=== PATIENT | female | born 1935 | race African-American/Black ===

== ENCOUNTER 2017-05-08 09:12 | Outpatient (CLI) | payer MEDICARE | END 2017-05-08 09:13 | disposition home or self-care (01) | LOC: BICULT 09:12 | PROVIDERS: ATTEND Internal Medicine Nephrology | DX: N18.3 Chronic kidney disease, stage 3 (moderate) (principal) | CPT/HCPCS: 76770 ==

== ENCOUNTER 2017-05-29 09:34 | Outpatient (CLI) | payer MEDICARE | END 2017-05-29 09:35 | disposition home or self-care (01) | LOC: BICCT 09:34 | PROVIDERS: ATTEND Internal Medicine Nephrology | DX: N18.4 Chronic kidney disease, stage 4 (severe) (principal); I70.90 Unspecified atherosclerosis | CPT/HCPCS: 74176 ==

== ENCOUNTER 2018-03-11 10:08 | Outpatient (CLI) | payer MEDICARE ==
--- NOTE | 2018-03-11 12:26 | ULT ---
RENAL ULTRASOUND: HISTORY: Chronic kidney disease. COMPARISON: None. TECHNIQUE: Sagittal and transverse imaging of the kidneys is performed. FINDINGS: There is bilateral renal cortical thinning. Bilaterally, no hydronephrosis. The right kidney measur es 9.5 x 5.8 x 4.5 cm. The left kidney measures 6.1 x 4.9 x 10.3 cm. Small hypoechoic focus emanating from the lower pole of the left kidney, measuring 0.8 cm, may repres ent a cyst. Unremarkable urinary bladder. Bladder volume is 203 mL. IMPRESSION: No evidence of hydronephrosis. POS: TY
== END 2018-03-11 10:09 | disposition home or self-care (01) ==
LOC: BICULT 10:08
PROVIDERS: ATTEND Internal Medicine Nephrology
DX: N18.3 Chronic kidney disease, stage 3 (moderate) (principal); N28.89 Other specified disorders of kidney and ureter
CPT/HCPCS: 76770

== ENCOUNTER 2018-06-11 12:26 | Emergency (ER) | payer MEDICARE ==
[2018-06-11] MEDS ORDERED: Lorazepam 2 MG/ML VIAL ONE (13:33)
[2018-06-11] MEDS ORDERED: Dicyclomine 20 MG TAB ONE (13:39)
[2018-06-11 13:49] LABS: #Eosinphils 0.2 thou/uL (0.0-0.7); #Lymphocytes 2.2 thou/uL (1.20-3.40); #Monocytes 0.5 thou/uL (0.11-0.59); #Neutrophils 4.6 thou/uL (1.40-6.50); %Basophils 0.5 % (0.0-1.0); %Eosinophils 2.6 % (0.0-10.0); %Lymphocytes 29.7 % (21.0-51.0); %Monocytes 6.2 % (0.0-10.0); Hemoglobin 11.8 g/dL (12.0-16.0); Mean Corpuscular HGB CONC 31.3 g/dL (32.0-36.0); Mean Corpuscular Hemoglobin 30.1 pg (27.0-31.0); Mean Corpuscular Volume 96.1 fL (78.0-98.0); Mean Platelet Volume 9.7 fL (7.4-10.4); Platelet Count 204 thou/uL (130-400); RBC Distribution Width 14.9 % (11.5-14.5); White Blood Cell (WBC) Count 7.5 thou/uL (4.8-10.8)
[2018-06-11 14:12] LABS: ALT (SGPT) 14 U/L (8-55); AST (SGOT) 24 U/L (5-34); Alkaline Phosphatase 83 U/L (40-150); Anion Gap 17 mmol/L (10-20); BUN (Urea Nitrogen) 19 mg/dL (9.8-20.1); Bilirubin, Total 0.4 mg/dL (0.2-1.2); Calc. Creatinine Clearance 0 mL/min (70-130); Calcium 9.7 mg/dL (7.8-10.44); Carbon Dioxide 24 mmol/L (23-31); Chloride 106 mmol/L (98-107); Estimated GFR-MDRD 46; Globulin 3.8 g/dL (2.4-3.5); Glucose 95 mg/dL (83-110); Lipase 95 U/L (8-78); Protein, Total 7.8 g/dL (6.0-8.3); Sodium 143 mmol/L (136-145)
[2018-06-11] MEDS ORDERED: Prochlorperazine Maleate 5 MG TAB PO SCH (14:30)
[2018-06-11] MEDS ORDERED: Metoclopramide HCl 10 MG TAB ONE (15:02)
== END 2018-06-11 15:19 | disposition home or self-care (01) ==
LOC: ERS 12:26
DX: M62.838 Other muscle spasm (principal); R10.84 Generalized abdominal pain; R06.6 Hiccough; E11.9 Type 2 diabetes mellitus without complications; E78.5 Hyperlipidemia, unspecified; I10 Essential (primary) hypertension; F32.9 Major depressive disorder, single episode, unspecified
CPT/HCPCS: 36415; 80053; 83690; 84484; 85025; 99284; J2060; J8597; Q0164

== ENCOUNTER 2018-07-01 12:51 | Emergency (ER) | payer MEDICARE ==
[2018-07-01 13:47] LABS: #Basophils 0.1 thou/uL (0.0-0.2); #Eosinphils 0.2 thou/uL (0.0-0.7); #Lymphocytes 1.9 thou/uL (1.20-3.40); #Monocytes 0.4 thou/uL (0.11-0.59); #Neutrophils 4.8 thou/uL (1.40-6.50); %Basophils 0.9 % (0.0-1.0); %Eosinophils 3.2 % (0.0-10.0); %Lymphocytes 25.7 % (21.0-51.0); %Monocytes 5.5 % (0.0-10.0); %Neutrophils 64.7 % (42.0-75.0); Hemoglobin 12.2 g/dL (12.0-16.0); Mean Corpuscular Hemoglobin 29.6 pg (27.0-31.0); Mean Corpuscular Volume 95.6 fL (78.0-98.0); Mean Platelet Volume 10.3 fL (7.4-10.4); Platelet Count 186 thou/uL (130-400); RBC Distribution Width 14.7 % (11.5-14.5); Red Blood Cell (RBC) Count 4.13 mill/uL (4.20-5.40); White Blood Cell (WBC) Count 7.4 thou/uL (4.8-10.8)
[2018-07-01 14:02] LABS: ALT (SGPT) 14 U/L (8-55); AST (SGOT) 21 U/L (5-34); Alkaline Phosphatase 89 U/L (40-150); Anion Gap 13 mmol/L (10-20); BUN (Urea Nitrogen) 18 mg/dL (9.8-20.1); Bilirubin, Total 0.3 mg/dL (0.2-1.2); Calc. Creatinine Clearance 0 mL/min (70-130); Calcium 9.6 mg/dL (7.8-10.44); Carbon Dioxide 24 mmol/L (23-31); Chloride 108 mmol/L (98-107); Estimated GFR-MDRD 47; Glucose 98 mg/dL (83-110); Lipase 83 U/L (8-78); Potassium 4.2 mmol/L (3.5-5.1); Sodium 141 mmol/L (136-145)
[2018-07-01 14:19] LABS: Bilirubin Negative (Negative); Blood, Urine Negative (Negative); Glucose, Urine (Dipstick) Negative (Negative); Leukocyte Negative (Negative); Nitrite Negative (Negative); Protein, Urine (Dipstick) Negative (Neg-Trace); Specific Gravity, Urine 1.025 (1.005-1.030); Urobilinogen 0.2 mg/dL (0.2-1.0); pH, Urine 5.5 (5.0-9.0)
[2018-07-01 14:25] LABS: Clarity Clear (Clear)
== END 2018-07-01 14:56 | disposition home or self-care (01) ==
LOC: ERS 12:51
DX: R10.9 Unspecified abdominal pain (principal); G89.29 Other chronic pain; E11.9 Type 2 diabetes mellitus without complications; E78.5 Hyperlipidemia, unspecified; I10 Essential (primary) hypertension; F32.9 Major depressive disorder, single episode, unspecified
CPT/HCPCS: 36415; 51701; 80053; 81003; 83690; 85025; A4353

== ENCOUNTER 2018-07-03 13:45 | Emergency (ER) | payer MEDICARE ==
[2018-07-03] MEDS ORDERED: ISOVUE-370 76%-LOCM 1 ML ONE (15:29)
[2018-07-03 15:46] LABS: #Eosinphils 0.4 thou/uL (0.0-0.7); #Lymphocytes 2.2 thou/uL (1.20-3.40); #Monocytes 0.4 thou/uL (0.11-0.59); #Neutrophils 4.6 thou/uL (1.40-6.50); %Basophils 0.4 % (0.0-1.0); %Lymphocytes 29.2 % (21.0-51.0); %Monocytes 5.2 % (0.0-10.0); %Neutrophils 60.2 % (42.0-75.0); Hemoglobin 11.9 g/dL (12.0-16.0); Mean Corpuscular HGB CONC 32.2 g/dL (32.0-36.0); Mean Corpuscular Hemoglobin 29.6 pg (27.0-31.0); Mean Corpuscular Volume 91.7 fL (78.0-98.0); Mean Platelet Volume 10.3 fL (7.4-10.4); Platelet Count 155 thou/uL (130-400); RBC Distribution Width 14.5 % (11.5-14.5); Red Blood Cell (RBC) Count 4.03 mill/uL (4.20-5.40); White Blood Cell (WBC) Count 7.6 thou/uL (4.8-10.8)
[2018-07-03 15:47] LABS: Bilirubin Negative (Negative); Blood, Urine Negative (Negative); Clarity CLEAR (Clear); Glucose, Urine (Dipstick) Negative (Negative); Leukocyte Negative (Negative); Nitrite Negative (Negative); Protein, Urine (Dipstick) Negative (Neg-Trace); Specific Gravity, Urine 1.011 (1.002-1.036); Urobilinogen 0.2 mg/dL (0.2-1.0)
--- NOTE | 2018-07-03 15:59 | CT ---
FCT of abdomen and pelvis 07/03/2018 COMPARISON: 02/05/2012 HISTORY: 83-year-old female with stomach pain TECHNIQUE: Axial CT imaging at 5 mm intervals from lung bases through pubic symphysis with IV contras t. Coronal reformatted imaging obtained. FINDINGS: Right lower lobe granuloma noted on image 8. Imaged lung bases otherwise unremarkable. Smal l sliding type hiatal hernia. No free intraperitoneal air or fluid. Liver, gallbladder, and spleen demonstrate no acute findings. Splenic granulomata noted. Pancreas, ad renal glands, and kidneys demonstrate no acute findings. Limited assessment of the bowel without oral contrast media demonstrates no evidence for obstruction or focal inflammatory change. The appendix appears unremarkable. Mild sigmoid colonic diverticulosis without evidence for diverticu litis. There is scattered atherosclerotic calcification involving the arterial structures of the pelvis. No abdominal or pelvic lymphadenopathy. There is multilevel severe lower lumbar spine facet hypertrophic change. Multilevel disc space narrow ing, osteophyte formation, and vacuum disc formation seen involving the thoracic spine and lumbar spi ne. No worrisome lytic or blastic bone lesion. IMPRESSION: No acute findings. Numerous chronic findings as described above.
[2018-07-03 16:02] LABS: ALT (SGPT) 17 U/L (8-55); AST (SGOT) 23 U/L (5-34); Albumin 3.8 g/dL (3.4-4.8); Alkaline Phosphatase 86 U/L (40-150); Anion Gap 16 mmol/L (10-20); BUN (Urea Nitrogen) 17 mg/dL (9.8-20.1); Bilirubin, Total 0.3 mg/dL (0.2-1.2); CK (CPK) 98 U/L (29-168); Calc. Creatinine Clearance 0 mL/min (70-130); Calcium 9.4 mg/dL (7.8-10.44); Carbon Dioxide 22 mmol/L (23-31); Chloride 108 mmol/L (98-107); Estimated GFR-MDRD 51; Globulin 4.1 g/dL (2.4-3.5); Glucose 97 mg/dL (83-110); Lipase 177 U/L (8-78); Potassium 4.7 mmol/L (3.5-5.1); Protein, Total 7.9 g/dL (6.0-8.3); Sodium 141 mmol/L (136-145)
[2018-07-03] MEDS ORDERED: chlorproMAZINE HCl 25 MG TAB PO SCH (17:15)
== END 2018-07-03 17:25 | disposition home or self-care (01) ==
LOC: ERS 13:45
DX: R10.9 Unspecified abdominal pain (principal); R06.6 Hiccough; E78.5 Hyperlipidemia, unspecified; E11.9 Type 2 diabetes mellitus without complications; F32.9 Major depressive disorder, single episode, unspecified; I10 Essential (primary) hypertension
CPT/HCPCS: 36415; 74177; 80053; 81003; 82550; 83690; 85025; 93005; 96360; Q0161; Q9966

== ENCOUNTER 2018-08-10 17:16 | Emergency (ER) | payer MEDICARE ==
[2018-08-10 18:34] LABS: #Basophils 0.1 thou/uL (0.0-0.2); #Eosinphils 0.2 thou/uL (0.0-0.7); #Monocytes 0.4 thou/uL (0.11-0.59); #Neutrophils 4.9 thou/uL (1.40-6.50); %Basophils 0.7 % (0.0-1.0); %Eosinophils 2.8 % (0.0-10.0); %Lymphocytes 26.3 % (21.0-51.0); %Monocytes 5.4 % (0.0-10.0); %Neutrophils 64.8 % (42.0-75.0); Hemoglobin 11.5 g/dL (12.0-16.0); Mean Corpuscular HGB CONC 31.2 g/dL (32.0-36.0); Mean Corpuscular Hemoglobin 28.9 pg (27.0-31.0); Mean Corpuscular Volume 92.7 fL (78.0-98.0); Mean Platelet Volume 9.7 fL (7.4-10.4); Platelet Count 190 thou/uL (130-400); RBC Distribution Width 14.8 % (11.5-14.5); Red Blood Cell (RBC) Count 3.97 mill/uL (4.20-5.40); White Blood Cell (WBC) Count 7.6 thou/uL (4.8-10.8)
[2018-08-10 18:54] LABS: ALT (SGPT) 15 U/L (8-55); AST (SGOT) 19 U/L (5-34); Albumin 4.1 g/dL (3.4-4.8); Alkaline Phosphatase 87 U/L (40-150); Anion Gap 14 mmol/L (10-20); BUN (Urea Nitrogen) 18 mg/dL (9.8-20.1); Bilirubin, Total 0.3 mg/dL (0.2-1.2); Calc. Creatinine Clearance 0 mL/min (70-130); Calcium 9.8 mg/dL (7.8-10.44); Carbon Dioxide 24 mmol/L (23-31); Chloride 108 mmol/L (98-107); Estimated GFR-MDRD 44; Globulin 3.7 g/dL (2.4-3.5); Glucose 89 mg/dL (83-110); Lipase 77 U/L (8-78); Potassium 3.8 mmol/L (3.5-5.1); Protein, Total 7.8 g/dL (6.0-8.3); Sodium 142 mmol/L (136-145)
[2018-08-10 20:54] LABS: Bilirubin Negative (Negative); Blood, Urine Negative (Negative); Clarity CLEAR (Clear); Glucose, Urine (Dipstick) Negative (Negative); Leukocyte Negative (Negative); Nitrite Negative (Negative); Protein, Urine (Dipstick) Negative (Neg-Trace); Specific Gravity, Urine 1.018 (1.002-1.036); Urobilinogen 0.2 mg/dL (0.2-1.0)
[2018-08-10] MEDS ORDERED: Pantoprazole 40 MG VIAL ONE (21:29)
[2018-08-10] MEDS ORDERED: Lorazepam 2 MG/ML VIAL ONE (21:29)
[2018-08-10] MEDS ORDERED: chlorproMAZINE HCl 50 MG/2 ML AMP SLOW IVP SCH (22:00)
== END 2018-08-11 00:50 | disposition home or self-care (01) ==
LOC: ERS 17:16
DX: R10.9 Unspecified abdominal pain (principal); R06.6 Hiccough; E11.9 Type 2 diabetes mellitus without complications; E78.5 Hyperlipidemia, unspecified; I10 Essential (primary) hypertension; F32.9 Major depressive disorder, single episode, unspecified
CPT/HCPCS: 36415; 80053; 81003; 83690; 85025; 96361; 96365; 96375; C9113; J2060; J3230

== ENCOUNTER 2018-08-20 16:44 | Emergency (ER) | payer MEDICARE ==
[2018-08-20 17:43] LABS: #Basophils 0.1 thou/uL (0.0-0.2); #Eosinphils 0.2 thou/uL (0.0-0.7); #Monocytes 0.4 thou/uL (0.11-0.59); #Neutrophils 3.7 thou/uL (1.40-6.50); %Basophils 1.1 % (0.0-1.0); %Lymphocytes 31.4 % (21.0-51.0); %Monocytes 6.4 % (0.0-10.0); %Neutrophils 58.2 % (42.0-75.0); Hemoglobin 11.6 g/dL (12.0-16.0); Mean Corpuscular Hemoglobin 30.2 pg (27.0-31.0); Mean Corpuscular Volume 94.4 fL (78.0-98.0); Platelet Count 170 thou/uL (130-400); RBC Distribution Width 15.2 % (11.5-14.5); Red Blood Cell (RBC) Count 3.86 mill/uL (4.20-5.40); White Blood Cell (WBC) Count 6.4 thou/uL (4.8-10.8)
[2018-08-20 18:06] LABS: ALT (SGPT) 13 U/L (8-55); AST (SGOT) 14 U/L (5-34); Albumin 3.9 g/dL (3.4-4.8); Alkaline Phosphatase 81 U/L (40-150); Anion Gap 16 mmol/L (10-20); BUN (Urea Nitrogen) 18 mg/dL (9.8-20.1); Bilirubin, Total 0.3 mg/dL (0.2-1.2); Calc. Creatinine Clearance 0 mL/min (70-130); Calcium 9.5 mg/dL (7.8-10.44); Carbon Dioxide 22 mmol/L (23-31); Chloride 111 mmol/L (98-107); Estimated GFR-MDRD 49; Globulin 3.6 g/dL (2.4-3.5); Glucose 117 mg/dL (83-110); Lipase 86 U/L (8-78); Potassium 4.4 mmol/L (3.5-5.1); Protein, Total 7.5 g/dL (6.0-8.3); Sodium 145 mmol/L (136-145)
[2018-08-20 19:14] LABS: Bilirubin Negative (Negative); Blood, Urine Negative (Negative); Clarity CLEAR (Clear); Glucose, Urine (Dipstick) Negative (Negative); Leukocyte Negative (Negative); Nitrite Negative (Negative); Protein, Urine (Dipstick) Negative (Neg-Trace); Specific Gravity, Urine 1.014 (1.002-1.036); Urobilinogen 0.2 mg/dL (0.2-1.0)
--- NOTE | 2018-08-22 10:38 | EKG ---
Test Reason : ABD PAIN Blood Pressure : / mmHG Vent. Rate : 064 BPM Atrial Rate : 064 BPM P-R Int : 196 ms QRS Dur : 078 ms QT Int : 436 ms P-R-T Axes : 029 -37 -18 degrees QTc Int : 449 ms Normal sinus rhythm Left axis deviation Low voltage QRS Inferior infarct , age undetermined Abnormal ECG Confirmed by ANTONI HOLDER ([id number]), news editor SHRAVAN GREGG ([id number]) on 08/22/2018 10:37:52 AM Referred By: MARILIA Confirmed By:ANTONI HOLDER
== END 2018-08-20 19:40 | disposition home or self-care (01) ==
LOC: ERS 16:44
DX: R10.9 Unspecified abdominal pain (principal); E11.9 Type 2 diabetes mellitus without complications; E78.5 Hyperlipidemia, unspecified; I10 Essential (primary) hypertension; F32.9 Major depressive disorder, single episode, unspecified
CPT/HCPCS: 36415; 80053; 81003; 83690; 85025; 93005

== ENCOUNTER 2018-08-24 14:59 | Observation (INO) | payer MEDICARE ==
[~2018-08-24 14:59] MED LIST: ISOVUE-370 76%-LOCM 1 ML ONE
[2018-08-24 16:09] LABS: #Eosinphils 0.2 thou/uL (0.0-0.7); #Lymphocytes 2.3 thou/uL (1.20-3.40); #Monocytes 0.4 thou/uL (0.11-0.59); #Neutrophils 5.5 thou/uL (1.40-6.50); %Basophils 0.6 % (0.0-1.0); %Eosinophils 2.2 % (0.0-10.0); %Lymphocytes 27.6 % (21.0-51.0); %Monocytes 4.7 % (0.0-10.0); Hemoglobin 11.6 g/dL (12.0-16.0); Mean Corpuscular HGB CONC 31.9 g/dL (32.0-36.0); Mean Corpuscular Hemoglobin 29.6 pg (27.0-31.0); Mean Platelet Volume 9.8 fL (7.4-10.4); Platelet Count 187 thou/uL (130-400); RBC Distribution Width 14.7 % (11.5-14.5); Red Blood Cell (RBC) Count 3.91 mill/uL (4.20-5.40); White Blood Cell (WBC) Count 8.5 thou/uL (4.8-10.8)
--- NOTE | 2018-08-24 16:24 | CT ---
CT ABDOMEN WITH CONTRAST CT PELVIS WITH CONTRAST: DATE: 08/24/2018 HISTORY: 83-year-old female with generalized abdominal pain TECHNIQUE: IV injection of iodinated contrast media: Administered Oral contrast media:Not administered COMPARISON: 07/03/2018 FINDINGS: Liver: No focal solid mass. Spleen: No splenomegaly.. Pancreas: No mass or surrounding fat stranding.. Adrenals: No mass.. Kidneys: No hydronephrosis or enhancement abnormalities.. Ureters: No dilation. Bladder: No pathology identified. Abdominal aorta: No aneurysm. Small bowel: No dilation. Colon: No adjacent fat stranding. Appendix: No dilation or adjacent fat stranding.. Free air: None. Free fluid: None. Gallbladder: No pericholecystic edema. No hydrops. Lumbar spine: Multilevel high-grade degenerative disc disease and facet DJD. No interval change overall. IMPRESSION: 1. No acute pathology. 2. High-grade lumbar spondylosis.
[2018-08-24 16:53] LABS: ALT (SGPT) 16 U/L (8-55); AST (SGOT) 21 U/L (5-34); Albumin 4.1 g/dL (3.4-4.8); Alkaline Phosphatase 91 U/L (40-150); Anion Gap 16 mmol/L (10-20); BUN (Urea Nitrogen) 17 mg/dL (9.8-20.1); Bilirubin, Total 0.3 mg/dL (0.2-1.2); Calc. Creatinine Clearance 0 mL/min (70-130); Calcium 9.4 mg/dL (7.8-10.44); Carbon Dioxide 25 mmol/L (23-31); Chloride 107 mmol/L (98-107); Estimated GFR-MDRD 45; Globulin 3.5 g/dL (2.4-3.5); Glucose 90 mg/dL (83-110); Lipase 92 U/L (8-78); Potassium 4.5 mmol/L (3.5-5.1); Protein, Total 7.6 g/dL (6.0-8.3); Sodium 143 mmol/L (136-145)
[2018-08-24] MEDS ORDERED: diphenhydrAMINE 50 MG/ML VIAL ONE ×2 (17:18→17:19)
[2018-08-24] MEDS ORDERED: Lorazepam 2 MG/ML VIAL ONE (17:18)
--- NOTE | 2018-08-24 17:49 | ULT ---
ULTRASOUND ABDOMEN LIMITED: (RIGHT UPPER QUADRANT) DATE: 08/24/2018 HISTORY: 83-year-old female with right upper quadrant abdominal pain FINDINGS: Gallbladder: Normal wall thickness. No gallstones or sludge identified. No pericholecystic fluid. Liver: Normal parenchymal echogenicity. Right kidney: No hydronephrosis. Pancreas: Visualized, with no gross sonographic abnormality identified (although ultrasound is relati vely insensitive for the detection of pancreatic pathology compared to CT and MRI.). Common duct caliber: 2 mm. IMPRESSION: Normal.
[2018-08-24 20:47] VITALS: BMI 37.2
[2018-08-24] MEDS ORDERED: HumaLOG 300 UNITS/3 ML VIAL SC PRN ×2 (23:42)
[2018-08-24] MEDS ORDERED: Dextrose 50% Abboject 50 ML SYRINGE SLOW IVP PRN (23:42)
[2018-08-24] MEDS ORDERED: Temazepam 15 MG CAP PO PRN (23:42)
[2018-08-24] MEDS ORDERED: Dextrose 5% in Water 1,000 ML IV PRN (23:42)
[2018-08-24] MEDS ORDERED: Acetaminophen 500 MG TAB PO PRN (23:42)
[2018-08-24] MEDS ORDERED: Ondansetron PF 4 MG/2 ML Vial IVP PRN (23:42)
[2018-08-24] MEDS ORDERED: Ondansetron ODT 4 MG TAB PO PRN (23:42)
[2018-08-24] MEDS ORDERED: hydrALAZINE 20 MG/ML VIAL SLOW IVP PRN (23:42)
--- NOTE | 2018-08-25 01:47 | HP ---
PRIMARY CARE PROVIDER: Previously Onelia Lu and later Lakhwinder, currently without a primary care provider. CHIEF COMPLAINT: Shaking. HISTORY OF PRESENT ILLNESS: This is an 83-year-old female, who presents to [facility] Emergency Department after complaining of shaking and spasms of her abdomen and upper torso over the last month. The patient experiences abdominal spasms and a "jumping sensation" apparently, worsening in the hairspring staker hours, 08/24/2018. The patient has had multiple ER visits regarding the same complaint with negative workups. The patient denies any specific change to her chronic medication regimen, but is unclear on who continues to fill her medications at the pharmacy. The patient states she is in between primary care providers and has not established with a new provider to date. The patient with longstanding history of abdominal discomfort including irritable bowel syndrome, recurrent diverticulitis, and abdominal pain according to review of the medical records dating back to 2009. The patient underwent a colonoscopy in 1998 with diagnosis of hemorrhoids. The patient underwent subsequent EGD in 2009 with diagnosis of hiatal hernia and ulceration of a previous polypectomy site of the duodenum. The patient denies any change to her bowel habits, fever, chills, nausea, vomiting, or weight loss. The patient notices the abdominal spasms intermittently and is unable to control spasms. The patient denies any family members with similar symptoms, recent travel history or exposure. In the emergency room, the patient underwent general evaluation including CT of the abdomen and pelvis as well as abdominal ultrasound with essentially negative findings. The patient received Ativan and Benadryl IV in the emergency room and was referred to the medical floor to the hospitalist service for further evaluation. PAST MEDICAL HISTORY: 1. Myoclonus. 2. History of irritable bowel syndrome. 3. History of recurrent diverticulitis. 4. Diabetes mellitus, type 2. 5. Hyperlipidemia. 6. Hypertension. 7. Anxiety disorder. 8. Depression. PAST SURGICAL HISTORY: Status post total abdominal hysterectomy with bilateral salpingo-oophorectomy. CURRENT MEDICATIONS: 1. Aripiprazole 2 mg p.o. daily. 2. Atenolol 50 mg p.o. daily. 3. Bupropion XL 150 mg p.o. daily. 4. Clonidine 0.1 mg p.o. at bedtime. 5. Lasix 20 mg p.o. daily. 6. Levothyroxine 50 mcg p.o. daily. 7. Lisinopril 5 mg p.o. daily. 8. Metformin 500 mg p.o. b.i.d. 9. Mirtazapine 30 mg p.o. at bedtime. 10. Potassium chloride 20 mEq p.o. daily. 11. Prazosin 2 mg p.o. at bedtime. 12. Crestor 10 mg p.o. daily. 13. Valtrex 1000 mg p.o. daily. ALLERGIES: NO KNOWN DRUG ALLERGIES. FAMILY HISTORY: No inheritable diseases per patient report. SOCIAL HISTORY: The patient resides in [place], [place] with her son and daughter. Receives some assistance with meal preparation and grocery shopping. Ambulates with a cane. No current alcohol, tobacco, or illicit drug use. REVIEW OF SYSTEMS: CONSTITUTIONAL: Negative for weight loss or gain, ability to conduct usual activities. SKIN: Negative for rash, itching. EYES: Negative for double vision, pain. ENT/MOUTH: Negative for nose bleeding, neck stiffness, pain, tenderness. CARDIOVASCULAR: Negative for palpitations, dyspnea on exertion, orthopnea. RESPIRATORY: Negative for shortness of breath, wheezing, cough, hemoptysis, fever or night sweats. GASTROINTESTINAL: Negative for poor appetite, abdominal pain, heartburn, nausea, vomiting, constipation, or diarrhea. GENITOURINARY: Negative for urgency, frequency, dysuria, nocturia. MUSCULOSKELETAL: Negative for pain, swelling. NEUROLOGIC/PSYCHIATRIC: Negative for anxiety, depression. ALLERGY/IMMUNOLOGIC: Negative for skin rash, bleeding tendency. Otherwise negative except as stated per HPI. PHYSICAL EXAMINATION: VITAL SIGNS: On admission. Blood pressure 137/79, pulse 66, respiratory rate 18, temperature 98.6 degrees Fahrenheit, O2 saturation 96% on room air. GENERAL APPEARANCE: This is an 83-year-old female, alert and oriented x3, pleasant, conversant, in no acute distress. HEENT: Pupils are equal, round, reactive to light and accommodation. Extraocular muscles are intact. No scleral icterus. No conjunctival injection. Nares are patent. OP is clear. Teeth in fair repair. NECK: Supple. No cervical adenopathy. No thyromegaly. No carotid bruits. No JVD appreciated. Cervical spine with full active and passive range of motions. No meningeal signs noted. CHEST: Lungs are clear to auscultation bilaterally. CARDIOVASCULAR: S1, S2 without noted murmur, rub, or gallop. ABDOMEN: Obese, soft, nontender, and nondistended. Bowel sounds are positive in all 4 quadrants. There is no hepatosplenomegaly. No abdominal bruits. No rebound or guarding appreciated. EXTREMITIES: Warm and dry with fair turgor. No clubbing, cyanosis, or asymmetric edema appreciated. Pulses are palpable distally at the dorsalis pedis, posterior tibial, and popliteal arteries bilaterally. Capillary refill is less than 2 seconds. NEUROLOGIC: Myoclonic activity noted in the abdominal and upper torso during the exam. No other gross focal deficits appreciated. Alert and oriented x3, and awake and alert during all myoclonic activity. PERTINENT LAB AND X-RAY FINDINGS: Sodium 143, potassium 4.5, chloride 107, CO2 of 25, BUN 17, creatinine 1.37, estimated GFR 45, glucose 90, calcium 9.4, LFTs within normal limits. Lipase 92, previously noted 86, 08/20/2018. CBC showed a white blood cell count 8.5, hemoglobin 12, hematocrit 36, platelet count [address] of the abdomen and pelvis dated 08/24/2018, showed no acute intraabdominal process. Degenerative changes of the lumbar spine noted. Abdominal ultrasound dated 08/24/2018, showed normal exam. ASSESSMENT/PLAN: 1. Myoclonus. The patient will be observed on the medical floor. Appears chronic in nature and likely due to side effects of current medication regimen. We will consult neurology service for recommendations regarding adjustment to current medication regimen and its contribution to current presentation. No evidence to suggest seizure activity. 2. Abdominal pain. Suspect secondary to myoclonus as described in the exam and #1. No specific intraabdominal pathology noted on CT or abdominal ultrasound. 3. Chronic kidney disease, stage 3. Stable currently. Avoid nephrotoxic agents and limit contrast exposure. Repeat creatinine in the a.m. 4. Diabetes mellitus, type 2. Insulin sliding scale for reflexive coverage. Serial Accu-Cheks before meals and at bedtime. ADA diet. Continue metformin 500 mg p.o. b.i.d. 5. Anxiety disorder. Continue home regimen and consider adjustment to chronic medication regimen in relation to #1. 6. Hypothyroidism. Continue levothyroxine 50 mcg daily. Check TSH and free T4 level in the a.m. 7. Prophylaxis. SCDs while in bed. Pepcid 20 mg p.o. b.i.d. 8. Code status is full. Surrogate medical decision maker is patient's daughter. Job ID: [id number]
[2018-08-25 05:28] LABS: Lipase 53 U/L (8-78); Phosphorus 3.7 mg/dL (2.3-4.7)
[2018-08-25 05:33] LABS: ALT (SGPT) 12 U/L (8-55); AST (SGOT) 17 U/L (5-34); Albumin 3.5 g/dL (3.4-4.8); Alkaline Phosphatase 73 U/L (40-150); Anion Gap 11 mmol/L (10-20); BUN (Urea Nitrogen) 15 mg/dL (9.8-20.1); Bilirubin, Total 0.4 mg/dL (0.2-1.2); Calc. Creatinine Clearance 54 mL/min (70-130); Calcium 9.2 mg/dL (7.8-10.44); Carbon Dioxide 27 mmol/L (23-31); Chloride 108 mmol/L (98-107); Estimated GFR-MDRD 50; Globulin 3.3 g/dL (2.4-3.5); Glucose 80 mg/dL (83-110); Magnesium 1.5 mg/dL (1.6-2.6); Potassium 3.8 mmol/L (3.5-5.1); Protein, Total 6.8 g/dL (6.0-8.3); Sodium 142 mmol/L (136-145)
[2018-08-25 05:45] LABS: Band 1 % (5-11); Hemoglobin 10.9 g/dL (12.0-16.0); Hypochromia SLIGHT = 6-15 cells (100X) (0-5/hpf); Lymphocytes 31 % (21-51); MDiff Complete? YES; Mean Corpuscular HGB CONC 32.2 g/dL (32.0-36.0); Mean Corpuscular Hemoglobin 29.8 pg (27.0-31.0); Mean Corpuscular Volume 92.6 fL (78.0-98.0); Mean Platelet Volume 9.9 fL (7.4-10.4); Monocytes 2 % (0-10); Neutrophil 66 % (42-75); Platelet Count 166 thou/uL (130-400); Platelet Morphology Comment Appears Adequate; Red Blood Cell (RBC) Count 3.64 mill/uL (4.20-5.40); White Blood Cell (WBC) Count 6.2 thou/uL (4.8-10.8)
[2018-08-25 05:48] LABS: Free T4 (Free Thyroxine) 0.9 ng/dL (0.70-1.48); Thyroid Stimulating Hormone 0.8474 uIU/mL (0.35-4.94)
[2018-08-25] MEDS ORDERED: Levothyroxine Sodium 50 MCG TAB PO SCH (06:00)
--- NOTE | 2018-08-25 08:18 | PDOC.PN ---
- Subjective Encounter Start Date: 08/25/18 Encounter Start Time: 11:20 Subjective: Patient feeling better. Less abdominal spasms this morning. No -: abdominal pain. - Objective Resuscitation Status - Order Detail: 08/24/18 23:33 Resuscitation Status Routine Resuscitation Status: FULL: Full Resuscitation MAR Reviewed: Yes Vital Signs & Weight: Vital Signs (12 hours) Temp Pulse Resp BP Pulse Ox 08/25/18 07:45 98.6 F 58 L 18 116/62 100 08/25/18 00:00 98.6 F 69 18 113/68 99 Weight Weight 218 lb 14.704 oz I&O: 08/24/18 08/25/18 08/26/18 06:59 06:59 06:59 Intake Total 350 Output Total 1000 Balance -650 Result Diagrams: 08/25/18 04:36 08/25/18 04:36 Additional Labs: Accuchecks 08/25/18 05:00 POC Glucose 86 Phys Exam - Physical Examination Constitutional: NAD HEENT: moist MMs Respiratory: no wheezing, no rales, no rhonchi Cardiovascular: RRR, no significant murmur Gastrointestinal: soft, non-tender, no distention, positive bowel sounds Neurological: non-focal Psychiatric: normal affect, A&O x 3 Dx/Plan (1) Myoclonus Code(s): G25.3 - MYOCLONUS Status: Acute Comment: affecting abdomen and upper torso, chronic, awaiting neurology evaluation for any medication adjustment recommendations (2) DM type 2 (diabetes mellitus, type 2) Status: Chronic (3) Chronic kidney disease, stage 3 Code(s): N18.3 - CHRONIC KIDNEY DISEASE, STAGE 3 (MODERATE) Status: Chronic Comment: stable (4) Generalized anxiety disorder Code(s): F41.1 - GENERALIZED ANXIETY DISORDER Status: Chronic (5) Hypothyroidism Code(s): E03.9 - HYPOTHYROIDISM, UNSPECIFIED Status: Chronic (6) Hypertension Code(s): I10 - ESSENTIAL (PRIMARY) HYPERTENSION Status: Chronic Qualifiers: Hypertension type: essential hypertension Qualified Code(s): I10 - Essential (primary) hypertension (7) Major depression Code(s): F32.9 - MAJOR DEPRESSIVE DISORDER, SINGLE EPISODE, UNSPECIFIED Status : Chronic (8) Irritable bowel syndrome Status: Chronic - Plan cont current plan of care await neurology med recommendations then can d/c home -: needs to establish with a new PCP * . - Discharge Day Encounter end time: 11:30
[2018-08-25] MEDS: metFORMIN 500 MG TAB PO SCH ×2 (08:58→17:17)
[2018-08-25] MEDS ORDERED: Atenolol 25 MG TAB PO SCH (09:00)
[2018-08-25] MEDS ORDERED: Lisinopril 5 MG TAB PO SCH (09:00)
[2018-08-25] MEDS ORDERED: Furosemide 20 MG TAB PO SCH (09:00)
[2018-08-25] MEDS ORDERED: Famotidine 20 MG TAB PO SCH (09:00)
[2018-08-25] MEDS ORDERED: Aripiprazole 2 MG TAB PO SCH (09:00)
[2018-08-25] MEDS ORDERED: Potassium Chloride 20 MEQ TAB PO SCH (09:00)
[2018-08-25] MEDS ORDERED: Bupropion 150 MG XL TAB PO SCH (09:00)
[2018-08-25] MEDS ORDERED: valACYclovir 500 MG TAB PO SCH (09:00)
[2018-08-25] MEDS ORDERED: levETIRAcetam 500 MG TAB PO SCH (14:40)
[2018-08-25 17:17] VITALS: BP 110/73; TEMP 98.5
[2018-08-25] MEDS ORDERED: Mirtazapine 30 MG TAB PO SCH (21:00)
[2018-08-25] MEDS ORDERED: Prazosin HCl 1 MG CAP PO SCH (21:00)
--- NOTE | 2018-08-26 05:51 | DIS ---
DATE OF ADMISSION: 08/24/2018 DATE OF DISCHARGE: 08/25/2018 PRIMARY CARE PHYSICIAN: Danyel Kemp, currently between primary care providers. REASON FOR ADMISSION: Myoclonic jerking of abdomen. DIAGNOSES AT DISCHARGE: 1. Myoclonic jerking of abdomen, improved. 2. Diabetes mellitus type 2. 3. Chronic kidney disease, stage 3. 4. Generalized anxiety disorder. 5. Hypothyroidism. 6. Hypertension. 7. Major depression. 8. Irritable bowel syndrome. PROCEDURES: CT of the abdomen and pelvis with contrast showing a high-grade lumbar stenosis, but no acute pathology. CONSULTATIONS: Neurology, Dr. Boyd. HISTORY OF PRESENT ILLNESS: This is an 83-year-old female, who presented with shaking and spasms in her abdomen and upper torso over the last month. She has had multiple ER visits for the same complaint with negative workups, but is not going to see her primary care provider as she is not established with a new one. She is, however, scheduled for a colonoscopy and further GI workup for her chronic abdominal pain. The patient was put in observation in the hospital. She did improve overnight and did have Dr. Boyd take a look at her H and P and med list and discussed the case. He recommended starting her on Keppra twice a day 500 mg and then having her follow up in his clinic. She has been stable during hospitalization and is stable for discharge. DISCHARGE MANAGEMENT: Discharged home. FOLLOWUP: Follow up with Dr. Edwards in 3 to 4 weeks. ACTIVITY: As tolerated. DIET: Diabetic diet. MEDICATIONS: 1. Keppra 500 mg twice a day, 60 tabs dispensed. 2. Aripiprazole 2 mg daily. 3. Atenolol 50 mg daily. 4. Bupropion XL 150 mg daily. 5. Furosemide 20 mg daily. 6. Levothyroxine 50 mcg daily. 7. Lisinopril 5 mg daily. 8. Metformin 500 mg twice a day. 9. Mirtazapine 30 mg at night. 10. Potassium chloride 20 mEq daily. 11. Prazosin 2 mg at night. 12. Valacyclovir 1000 mg daily. 13. Clonidine 0.1 mg at night. 14. Rosuvastatin 10 mg daily. Job ID: [id number] [facility]
== END 2018-08-25 17:55 | disposition home or self-care (01) ==
LOC: ERS 14:59 → T4-A 17:07
PROVIDERS: ADMIT Internal Medicine; ATTEND Internal Medicine
DX: G25.3 Myoclonus (principal); R10.84 Generalized abdominal pain; I12.9 Hypertensive chronic kidney disease with stage 1 through stage 4 chronic kidney disease, or unspecified chronic kidney disease; N18.3 Chronic kidney disease, stage 3 (moderate); E11.22 Type 2 diabetes mellitus with diabetic chronic kidney disease; K58.9 Irritable bowel syndrome, unspecified; M47.896 Other spondylosis, lumbar region; E78.5 Hyperlipidemia, unspecified; E03.9 Hypothyroidism, unspecified; F41.1 Generalized anxiety disorder; F32.9 Major depressive disorder, single episode, unspecified; Z87.891 Personal history of nicotine dependence; Z79.84 Long term (current) use of oral hypoglycemic drugs; Z79.899 Other long term (current) drug therapy
CPT/HCPCS: 74177; 76705; 80053 ×2; 82962; 83690 ×2; 83735; 84100; 84439; 84443; 85007; 85025; 85027; 96374; 96375; 99285; G0378 ×2; 36415; 36416; J1200; J2060; Q9966

== ENCOUNTER 2018-10-27 11:52 | Emergency (ER) | payer MEDICARE ==
[2018-10-27 13:10] LABS: #Eosinphils 0.1 thou/uL (0.0-0.7); #Lymphocytes 1.5 thou/uL (1.20-3.40); #Monocytes 0.4 thou/uL (0.11-0.59); #Neutrophils 4.8 thou/uL (1.40-6.50); %Basophils 0.6 % (0.0-1.0); %Eosinophils 1.6 % (0.0-10.0); %Monocytes 5.9 % (0.0-10.0); %Neutrophils 69.9 % (42.0-75.0); Hemoglobin 11.2 g/dL (12.0-16.0); Mean Corpuscular HGB CONC 31.6 g/dL (32.0-36.0); Mean Corpuscular Hemoglobin 30.3 pg (27.0-31.0); Mean Corpuscular Volume 95.8 fL (78.0-98.0); Mean Platelet Volume 9.7 fL (7.4-10.4); Platelet Count 174 thou/uL (130-400); RBC Distribution Width 16.2 % (11.5-14.5); Red Blood Cell (RBC) Count 3.71 mill/uL (4.20-5.40); White Blood Cell (WBC) Count 6.8 thou/uL (4.8-10.8)
[2018-10-27 13:40] LABS: ALT (SGPT) 15 U/L (8-55); AST (SGOT) 22 U/L (5-34); Alkaline Phosphatase 86 U/L (40-150); Anion Gap 13 mmol/L (10-20); BUN (Urea Nitrogen) 16 mg/dL (9.8-20.1); Bilirubin, Total 0.5 mg/dL (0.2-1.2); Calc. Creatinine Clearance 0 mL/min (70-130); Calcium 10.1 mg/dL (7.8-10.44); Carbon Dioxide 24 mmol/L (23-31); Chloride 110 mmol/L (98-107); Estimated GFR-MDRD 50; Globulin 3.8 g/dL (2.4-3.5); Glucose 115 mg/dL (83-110); Lipase 116 U/L (8-78); Potassium 3.8 mmol/L (3.5-5.1); Protein, Total 7.8 g/dL (6.0-8.3); Sodium 143 mmol/L (136-145)
[2018-10-27 14:12] LABS: Bilirubin Negative (Negative); Blood, Urine Negative (Negative); Clarity Clear (Clear); Glucose, Urine (Dipstick) Normal (Negative); Leukocyte Negative Leu/uL (Negative); Nitrite Negative (Negative); Protein, Urine (Dipstick) Negative (Neg-Trace); Urobilinogen Normal mg/dL (Less than 2)
--- NOTE | 2018-10-27 14:56 | RAD ---
RADIOGRAPH ABDOMEN 1 VIEW: 10/27/18 HISTORY: 83-year-old female with generalized abdominal pain. FINDINGS: No evidence of organomegaly. Normal bowel gas pattern. IMPRESSION: Normal bowel gas pattern. POS: CET
== END 2018-10-27 15:18 | disposition home or self-care (01) ==
LOC: ERS 11:52
DX: R10.84 Generalized abdominal pain (principal); F41.9 Anxiety disorder, unspecified; E11.9 Type 2 diabetes mellitus without complications; E78.5 Hyperlipidemia, unspecified; I10 Essential (primary) hypertension; Z87.891 Personal history of nicotine dependence
CPT/HCPCS: 36415; 74018; 80053; 81003; 83690; 85025; 93005

== ENCOUNTER 2018-12-02 13:01 | Inpatient (IN) | payer MEDICARE ==
[2018-12-02 15:25] LABS: #Eosinphils 0.1 thou/uL (0.0-0.7); #Lymphocytes 1.9 thou/uL (1.20-3.40); #Monocytes 0.4 thou/uL (0.11-0.59); #Neutrophils 4.3 thou/uL (1.40-6.50); %Basophils 0.4 % (0.0-1.0); %Eosinophils 2.1 % (0.0-10.0); %Monocytes 6.5 % (0.0-10.0); %Neutrophils 63.1 % (42.0-75.0); Hemoglobin 11.3 g/dL (12.0-16.0); Mean Corpuscular HGB CONC 32.9 g/dL (32.0-36.0); Mean Corpuscular Hemoglobin 31.7 pg (27.0-31.0); Mean Corpuscular Volume 96.4 fL (78.0-98.0); Platelet Count 143 thou/uL (130-400); RBC Distribution Width 14.7 % (11.5-14.5); Red Blood Cell (RBC) Count 3.57 mill/uL (4.20-5.40); White Blood Cell (WBC) Count 6.7 thou/uL (4.8-10.8)
[2018-12-02 15:47] LABS: ALT (SGPT) 29 U/L (8-55); AST (SGOT) 27 U/L (5-34); Albumin 3.8 g/dL (3.4-4.8); Alkaline Phosphatase 72 U/L (40-150); Anion Gap 11 mmol/L (10-20); BUN (Urea Nitrogen) 17 mg/dL (9.8-20.1); Bilirubin, Total 0.5 mg/dL (0.2-1.2); Calc. Creatinine Clearance 0 mL/min (70-130); Calcium 9.3 mg/dL (7.8-10.44); Carbon Dioxide 28 mmol/L (23-31); Chloride 108 mmol/L (98-107); Estimated GFR-MDRD 48; Globulin 3.1 g/dL (2.4-3.5); Glucose 79 mg/dL (83-110); Potassium 3.7 mmol/L (3.5-5.1); Protein, Total 6.9 g/dL (6.0-8.3); Sodium 143 mmol/L (136-145)
--- NOTE | 2018-12-02 16:42 | RAD ---
XR Chest 1 View Portable HISTORY: Bradycardia COMPARISON: 08/10/2011 FINDINGS: The heart size is at upper limits of normal. The lungs are well expanded without focal area s of consolidation, pneumothorax or pleural effusions. IMPRESSION: No radiographic evidence of acute cardiopulmonary process.
[2018-12-02] MEDS ORDERED: Acetaminophen 325 MG TAB PO PRN (18:41)
[2018-12-02] MEDS ORDERED: Ondansetron ODT 4 MG TAB PO PRN ×2 (18:41→19:08)
[2018-12-02] MEDS ORDERED: Ondansetron PF 4 MG/2 ML Vial IVP PRN ×2 (18:41→19:08)
[2018-12-02] MEDS ORDERED: Dextrose 5% in Water 1,000 ML IV PRN (18:47)
[2018-12-02] MEDS ORDERED: Dextrose 50% Abboject 50 ML SYRINGE SLOW IVP PRN (18:47)
[2018-12-02] MEDS ORDERED: HumaLOG 300 UNITS/3 ML VIAL SC PRN ×2 (18:47)
[2018-12-02] MEDS ORDERED: Famotidine 20 MG TAB PO SCH ×2 (21:00)
--- NOTE | 2018-12-02 21:58 | HP ---
PRIMARY CARE PHYSICIAN: Dr. Robert Stiles CHIEF COMPLAINT: Referral to ER from PCP for sinus bradycardia with ventricular rate in the 30s. HISTORY OF PRESENT ILLNESS: Ms. Jamila Owen is an 83-year-old female with past medical history significant for type 2 diabetes mellitus, hypertension, hyperlipidemia, hypothyroidism, and stage 3 chronic kidney disease, who presents to the hospital at the behest of her primary care physician, Dr. Stiles after EKG in her office this morning revealed sinus bradycardia with a ventricular rate of 38 beats per minute. The patient initially went to see her PCP because she did not "sleep very well" the night before. The patient is a poor historian, and cannot provide any other details aside from the fact that she denies any chest pain, lightheadedness, dizziness, presyncope, or alma syncope. She has had no recent illnesses, and denies any cough, cold, or flu symptoms. No fever or chills. Dr. Stiles did perform an EKG in her office today, which did reveal sinus bradycardia with a ventricular rate of 38 beats per minute. There were no dynamic ST or T-wave changes. Because of the profound bradycardia, she was referred to the emergency department for further workup and treatment. Upon my interview, as mentioned, the patient has no complaints to me at this time. She denies any dizziness. She is ambulating around the ER with her cane without difficulty. She is concerned very much about the fact that she has not had a hot meal since she has been in the ER, this is her main concern. Per review of Dr. Stiles's note, she has been diagnosed with some mild dementia. REVIEW OF SYSTEMS: A 12-point review of systems performed and is negative except that stated above. PAST MEDICAL HISTORY: 1. Myoclonus. 2. Irritable bowel syndrome. 3. Recurrent diverticulitis. 4. Type 2 diabetes mellitus. 5. Hyperlipidemia. 6. Hypertension. 7. Anxiety and depression. 8. Mild anemia. 9. Dementia. 10. Hypothyroidism. PAST SURGICAL HISTORY: 1. Hysterectomy in 1969 with bilateral salpingo-oophorectomy. 2. Colonoscopy in August of 2018. FAMILY HISTORY: Positive for heart disease in her mother. Her 3 sons and 2 daughters are alive. She does have family history of hypertension, diabetes, and CVA. SOCIAL HISTORY: The patient is a nonsmoker and nondrinker. She lives with one of her sons who helps manage her medications. ALLERGIES: NO KNOWN DRUG ALLERGIES. HOME MEDICATIONS: 1. Potassium chloride 20 mEq one tablet daily. 2. Bupropion 150 mg tablet one tablet once daily. 3. Lasix 20 mg tablet one tablet every other day. 4. Crestor 10 mg tablet one tablet daily. 5. Levothyroxine 50 mcg tablet one tablet q.a.m. 6. Atenolol 50 mg one tablet orally once daily. 7. Lisinopril 5 mg one tablet once daily. 8. Prazosin 2 mg capsule one at bedtime. 9. Aripiprazole 2 mg tablet half tablet once daily. 10. Januvia 50 mg tablet one tablet by mouth every day. 11. Valacyclovir one tablet orally once daily. 12. Clonazepam 0.5 mg at bedtime. Please note that the patient is unaware of her medication list and this list has been taken from the records at her primary care physician's office. PHYSICAL EXAMINATION: VITAL SIGNS: Blood pressure is 167/67, pulse is 42, O2 saturation is 96% on room air, temperature 99. GENERAL: The patient is a moderately obese female, sitting up in bed in the ER, in no acute distress. HEENT: Head is atraumatic and normocephalic. Mucous membranes are moist. NECK: Trachea is midline. No JVD. CV: S1 and S2. Regular rhythm, mildly bradycardic. No appreciable murmurs, rubs, or gallops. LUNGS: Regular respiratory rate and pattern. Clear to auscultation bilaterally. ABDOMEN: Obese, positive bowel sounds. Soft, nontender. EXTREMITIES: No appreciable edema. NEUROLOGICAL: Cranial nerves 2 through 12 are grossly intact. The patient is nonfocal. LABORATORY DATA: White blood cell count 6.7, hemoglobin 11.3, hematocrit 34.4, platelets are 143. Sodium 143, potassium 3.7, chloride 108, carbon dioxide 28, anion gap 11, BUN 17, creatinine 1.29, GFR 48, glucose was 98, AST 27, ALT 29, alkaline phosphatase 72, creatine kinase 140. Troponin is negative. ASSESSMENT: 1. Sinus bradycardia in the setting of beta maria l use, does not appear to be symptomatic at this time, but her ventricular rate has dropped into the 30s. Once again, the patient denies any dizziness, lightheadedness, presyncope, or syncope. 2. Type 2 diabetes mellitus. 3. Hypertension. 4. Hyperlipidemia. 5. History of recurrent diverticulitis. 6. Hypothyroidism. 7. Anxiety/depression/mild dementia per PCP's note. 8. Stage 3 chronic kidney disease with creatinine at baseline. 9. History of myoclonus. PLAN: At this time, we will hold the patient's beta maria l and continue to monitor her on telemetry. We will obtain a thyroid panel in the morning. Hopefully with stopping beta maria l, her rates will recover and we can avoid any aggressive measures such as pacemaker implantation, although I have discussed this with the patient if she were to develop any symptomatic bradycardia. Fall precautions will be taken. We will add sliding scale insulin and restart the patient's home medications aside from her atenolol, which obviously will be held. DVT and GI prophylaxis initiated. Further recommendations based on findings of telemetry and her general hospital course. Dr. Quintana of Cardiology has been consulted from the emergency department. I will go ahead and obtain an echocardiogram tomorrow as well. Job ID: [id number]
[2018-12-02 23:23] VITALS: BMI 34.7
[2018-12-03 05:25] LABS: Free T4 (Free Thyroxine) 0.79 ng/dL (0.70-1.48)
[2018-12-03] MEDS: Lisinopril 5 MG TAB PO SCH (08:48)
[2018-12-03] MEDS: Bupropion 150 MG XL TAB PO SCH (08:48)
[2018-12-03] MEDS: Levothyroxine Sodium 50 MCG TAB PO SCH (08:48)
[2018-12-03] MEDS: Aripiprazole 2 MG TAB PO SCH (08:48)
[2018-12-03] MEDS: Furosemide 20 MG TAB PO SCH (08:48)
[2018-12-03] MEDS: Rosuvastatin 10 MG TAB PO SCH (08:49)
[2018-12-03] MEDS: Potassium Chloride 20 MEQ TAB PO SCH (08:49)
[2018-12-03] MEDS: valACYclovir 500 MG TAB PO SCH (08:49)
[2018-12-03] MEDS ORDERED: sitaGLIPtin Phosphate 25 MG TAB PO SCH (09:00)
[2018-12-03] MEDS ORDERED: Amlodipine 5 MG TAB PO SCH (10:00)
--- NOTE | 2018-12-03 14:49 | PDOC.HOSPP ---
- Subjective Encounter Date: 12/03/18 Encounter Time: 14:45 Subjective: Doing well. Does not seem to fully recall her conversation with Dr. Deelon. - Objective Vital Signs & Weight: Vital Signs (12 hours) Temp Pulse Resp BP Pulse Ox 12/03/18 12:36 97.6 F 44 L 20 161/69 H 97 12/03/18 07:41 97.6 F 38 L 18 179/78 H 92 L 12/03/18 03:26 98.9 F 44 L 16 180/79 H 96 Weight Weight 190 lb 3.2 oz I&O: 12/02/18 12/03/18 12/04/18 06:59 06:59 06:59 Output Total 100 Balance -100 Result Diagrams: 12/02/18 15:18 12/02/18 15:18 Additional Labs: Accuchecks 12/03/18 12/03/18 12/02/18 11:00 03:30 19:52 POC Glucose 117 H 96 98 Hospitalist ROS - Medication Medications: Active Medications Generic Name Dose Route Start Last Admin Trade Name Freq PRN Reason Stop Dose Admin Aripiprazole 2 mg 12/03/18 09:00 12/03/18 08:48 Abilify PO 2 mg DAILY ABBE Administration Bupropion HCl 150 mg 12/03/18 09:00 12/03/18 08:48 Wellbutrin Xl PO 150 mg DAILY ABBE Administration Furosemide 20 mg 12/03/18 09:00 12/03/18 08:48 Lasix PO 20 mg DAILY ABBE Administration Levothyroxine Sodium 50 mcg 12/03/18 09:00 12/03/18 08:48 Synthroid PO 50 mcg DAILY ABBE Administration Lisinopril 5 mg 12/03/18 09:00 12/03/18 08:48 Zestril PO 5 mg DAILY ABBE Administration Potassium Chloride 20 meq 12/03/18 09:00 12/03/18 08:49 K-Dur PO 20 meq DAILY ABBE Administration Rosuvastatin Calcium 10 mg 12/03/18 09:00 12/03/18 08:49 Crestor PO 10 mg DAILY ABBE Administration Valacyclovir HCl 1,000 mg 12/03/18 09:00 12/03/18 08:49 Valtrex PO 1,000 mg DAILY ABBE Administration - Exam General Appearance: NAD General - other findings: obese Heart: RRR, no murmur, no gallops, no rubs, normal peripheral pulses Respiratory: CTAB, no wheezes, no rales, no ronchi, normal chest expansion, no tachypnea, normal percussion Gastrointestinal: soft, non-tender, non-distended, normal bowel sounds, no palpable masses, no hepatomegaly, no splenomegaly, no bruit Skin: normal turgor, no lesions, no rashes Musculoskeletal: normal tone Psychiatric: normal affect, normal behavior Psychiatric - other findings: Appears to possibly have some short term memory deficit. Hosp A/P (1) Bradycardia Code(s): R00.1 - BRADYCARDIA, UNSPECIFIED Status: Acute (2) Chronic kidney disease, stage 3 Code(s): N18.3 - CHRONIC KIDNEY DISEASE, STAGE 3 (MODERATE) Status: Chronic (3) DM type 2 (diabetes mellitus, type 2) Status: Chronic (4) Generalized anxiety disorder Code(s): F41.1 - GENERALIZED ANXIETY DISORDER Status: Chronic (5) Hypertension Code(s): I10 - ESSENTIAL (PRIMARY) HYPERTENSION Status: Chronic Qualifiers: Hypertension type: essential hypertension Qualified Code(s): I10 - Essential (primary) hypertension (6) Hypothyroidism Code(s): E03.9 - HYPOTHYROIDISM, UNSPECIFIED Status: Chronic - Plan Discussed with Cardiology. Will continue to monitor and hold the BB. If she is stable and asymptomatic tomorrow, may consider discharge with holter. If she is substantially michelle or symptomatic, may need PPM.
--- NOTE | 2018-12-03 16:00 | CON ---
DATE OF CONSULTATION: PRIMARY CARE DOCTOR: Robert Stiles, [employer]. PRIMARY FEDERAL JUDICIAL LAW CLERK: The patient's primary data abstractor is going to be Dr. Garcia. REASON FOR CARDIOLOGY CONSULT: Bradycardia. HISTORY OF PRESENT ILLNESS: Ms. Owen is an 83-year-old female with a significant history of hypertension, hyperlipidemia, diabetes type 2, recent diverticulitis, irritable bowel syndrome, anxiety, depression, mild anemia, possible mild dementia, moderate mitral valve regurgitation, and myoclonus. She has seen Dr. Garcia for complaint of shortness of breath in his office. Last office visit was 2013. According to Dr. Garcia's office note, saying that the patient was doing well and no any cardiac complaints at that time. Since then, she has not followed up with Dr. Garcia since 2013. The patient cannot remember the reason why she has not followed up with him. According to Dr. Stiles's note, she has been diagnosed with some mild dementia. According to the patient, she was doing well until the day night before last night, she could not sleep. Also the patient will follow up with her primary care doctor, Dr. Stiles yesterday for the symptom and the patient was found to have a bradycardia with heart rate of 38. The patient was transferred to the emergency department for that finding. At this moment, the patient's telemetry record shows the patient is 35. The patient denied dizziness or lightheadedness with movement, shortness of breath, palpitation, fluttering, or any other cardiac complaints. She has continued complaining of her stomach jumping or jerking, which have been for quite a while more than a couple of years. The patient was here in the hospital in 08/2018 for the symptoms and the patient's abdominal workup showed negative. At this moment, during the initial cardiology consult assessment, the patient denied any chest pain, dizziness, lightheadedness, or any other cardiac complaints. The patient had echocardiogram done at Dr. Garcia's office in 2013, which shows EF of 55% to 60%, moderate mitral valve regurgitation, mild mitral valve prolapse at the anterior mitral valve leaflet, mild tricuspid regurgitation, and trace pulmonary regurgitation. The patient has not had any stress test or any echocardiogram since 2013. The patient cannot remember if she has followed any cardiology besides Dr. Garcia. PAST MEDICAL HISTORY: 1. Myoclonus. 2. Irritable bowel syndrome. 3. Recurrent diverticulitis. 4. Type 2 diabetes. 5. Hypertension. 6. Hyperlipidemia. 7. Mild anemia. 8. Chronic kidney disease, stage 3. 9. Anxiety and depression. 10. Possible mild dementia. 11. Hypothyroidism. PAST SURGICAL HISTORY: 1. Hysterectomy in 2017 with bilateral salpingo-oophorectomy. 2. Colonoscopy in 08/2018. FAMILY HISTORY: Noncontributory; however, according to the patient's medical record positive for heart disease in her mother side and she has a family history of hypertension, diabetes, and CVA. SOCIAL HISTORY: She is a . She is living with her 2 sons. She denies EtOH or illicit drug abuse. She is ex-smoker and she quit long time ago. ALLERGIES: NO KNOWN DRUG ALLERGIES. HOME MEDICATIONS: 1. Valacyclovir 1000 mg one tablet once a day. 2. Atorvastatin 10 mg once a day. 3. Prazosin 2 mg one capsule at night. 4. Potassium 20 mEq one tablet once a day. 5. Lisinopril 5 mg once a day. 6. Levothyroxine 50 mcg once a day. 7. Furosemide 20 mg once a day. 8. Bupropion 150 mg once a day. 9. Atenolol 50 mg once a day. 10. Aripiprazole 2 mg once a day. 11. Januvia 50 mg once a day. 12. Clonazepam 0.5 mg once a day at night. Those medication information was getting from the patient's medical history and medical record. REVIEW OF SYSTEMS: A 12-point review of systems is negative unless otherwise mentioned in HPI. PHYSICAL EXAMINATION: VITAL SIGNS: Blood pressure 180/79, pulse is 44 and sinus Michelle, temperature 98.9, respiratory rate 16, and O2 saturation 96% on room air. GENERAL: The patient is alert and oriented x4, not in acute distress. HEAD: Normocephalic and atraumatic. EYES: Extraocular muscle movement intact. ENT AND MOUTH: Oral and nasal mucosa moist without lesions. NECK: Supple. Normal range of motion. No JVD. RESPIRATORY: Clear to auscultate bilaterally. No wheezing, rales, or rhonchi noted. CARDIOVASCULAR: Regular rate and rhythm. Normal S1 and S2. There are no S3 or S4. No significant murmur, hives, or thrill noted. ABDOMEN: Soft and nontender. No mass to palpate. Bowel sounds are present. EXTREMITIES: The patient is able to move all extremities. The patient denied claudication. SKIN: Warm and dry. No rash, erythema, or lesions noted. NEUROLOGIC: The patient is alert and oriented x4, nonfocal. PSYCHIATRIC: The patient's mood is appropriate at this moment. LABORATORY DATA: WBC 6.7, hemoglobin 11.3, hematocrit 34.4, and platelets 143. Sodium 143, potassium 3.7, BUN 17, creatinine 1.29, glucose 79, AST 27, and ALT 29. Troponin negative x2. TSH 1.0318 and a free T4 of 0.79. Chest x-ray shows no acute cardiopulmonary process. ASSESSMENT AND PLAN: 1. Sinus michelle. The patient was on atenolol, which was hold since yesterday. We would like to wait for at least 24 hours to see how her heart rates going to change. If she is continued having sinus michelle in the 30s to 40s and even the patient is not symptomatic, it may be beneficial for her to have a pacemaker to prevention of fall in the future. Since the patient is mildly demented, she wants us to call the patient's son, who is supposed to be the patient's medical power of assistant county attorney if patient needs further evaluation or treatment. We would like to continue to monitor her on the telemetry. 2. Hypertension. Since the patient's atenolol is on hold, we would like to start Norvasc 5 mg once a day and we would like to continue to monitor her as per floor protocol and we would like to adjust the patient's medication as appropriate. 3. Hyperlipidemia. The patient is on lovastatin 10 mg once a day. 4. History of moderate mitral valve regurgitation. She is having echocardiogram at this moment, we are awaiting for the results. 5. Type 2 diabetes, which is covered by the primary care doctor. She is on a.c. and at bedtime glucose checks with sliding scale insulin order. 6. Hypothyroidism. She is on Synthroid, which is managed by primary care doctor. The patient's TSH and free T4 are within normal range. 7. Chronic kidney disease, stage 3. The patient's kidney function is unchanged from previous lab results. We would like to continue to monitor. 8. Myoclonic jerking of the abdomen. She was in hospital in 08/2018 with abdominal workup, which showing to be negative. 9. Anxiety and depression. The patient's mood is appropriate at this moment. 10. Irritable bowel syndrome. The patient's condition is stable at this moment per the patient. Thank you very much for allowing the cardiology service to participate in the care of this patient. We will follow along the patient's care team and make further recommendations as appropriate. Job ID: [id number]
[2018-12-03] MEDS ORDERED: Famotidine 20 MG TAB PO SCH (21:00)
[2018-12-03] MEDS ORDERED: Prazosin HCl 1 MG CAP PO SCH (21:00)
[2018-12-03] MEDS ORDERED: clonazePAM 0.5 MG TAB PO SCH (21:00)
--- NOTE | 2018-12-03 23:03 | CON ---
DATE OF CONSULTATION: 12/03/2018 INDICATION FOR CONSULTATION: An 83-year-old female with bradycardia. HISTORY OF PRESENT ILLNESS: This is a very pleasant 83-year-old female, who appears to be somewhat confused, has a history of hypertension, type 2 diabetes, dyslipidemia as well as some anxiety and depression and mild anemia, was seen in the primary care physician's office and was found to have some bradycardia, was advised to seek hospitalization, seen in the emergency room and I believe was admitted to the hospital. She has actually very few symptoms associated with the bradycardia from what I can tell, but she does seem to be somewhat confused. She rates down to 30s at times, but sometimes the heart rate will up into the 40s and 50s. She denied any dizziness or previous syncope. She has no chest discomfort. She does have some problems with her stomach with some diverticulitis in the past and otherwise has been relatively comfortable. She denied any previous cardiac history. She had been seen in the past, but apparently has been stable since that time and has not seen Cardiology in about five years. She denied any chest pain, lightheadedness, dizziness, shortness of breath, or cardiac complaints. PAST MEDICAL HISTORY: Please refer to the notes dictated by my nurse practitioner, Erika Davis. SOCIAL HISTORY: Please refer to the notes dictated by my nurse practitioner, Erika Davis. FAMILY HISTORY: Please refer to the notes dictated by my nurse practitioner, Erika Davis. REVIEW OF SYSTEMS: Please refer to the notes dictated by my nurse practitioner, Erika Davis. MEDICATIONS: Please refer to the notes dictated by my nurse practitioner, Erika Davis. ALLERGIES: PLEASE REFER TO THE NOTES DICTATED BY MY NURSE PRACTITIONER, ERIKA DAVIS. ALSO, PLEASE NOTE THAT THE LAST ECHOCARDIOGRAM ON THIS LADY WAS IN 2013, WHICH SHOWED A NORMAL EJECTION FRACTION WITH MODERATE MITRAL VALVE REGURGITATION WITH SOME MILD MITRAL VALVE PROLAPSE. OTHERWISE, THERE WERE NO SIGNIFICANT ABNORMALITIES NOTED. SHE HAD A STRESS TEST BACK IN 2013, WHICH ALSO WAS NOTED TO BE UNREMARKABLE. PHYSICAL EXAMINATION: GENERAL: Reveals a very pleasant, well-developed, well-nourished female, who is in no acute distress. She is alert. She is oriented. VITAL SIGNS: Stable. HEENT: Unremarkable. CHEST: Clear to auscultation. There were no rales, rhonchi, or wheezing. CARDIOVASCULAR: Revealed a regular rate and rhythm at this time. She has a very soft systolic murmur at the aortic area. ABDOMEN: Shows obesity with positive bowel sounds. EXTREMITIES: Show no clubbing, cyanosis, or edema. Pedal pulses are present. NEUROLOGICAL: She appears to be somewhat confused, but otherwise is unremarkable. She has what appears to be normal strength and normal tone. SKIN: Warm and dry. IMPRESSION: Elderly female with bradycardia. She has been on beta blockers, and we would hold her atenolol and see if the heart rate increases. If she does not increase the heart rate in the next 24 to 48 hours, she could be sent home with an event monitor to see whether or not she has any severe bradycardia after stopping the atenolol. If so, she may need to undergo a pacemaker insertion, but if the heart rate increases, then most likely she will be stable. We will repeat the echocardiogram. She also may need to have a stress test, but otherwise she appears to be very stable. The blood pressure is somewhat elevated, and we will need to follow this. 1. Bradycardia. As noted, we will stop the beta maria l and continue to monitor her. If necessary, pacemaker could be inserted. Otherwise, she could be sent home with a monitor device for at least 5 to 7 days. 2. Hypertension. We will need to continue to monitor her medications and readjust them. We can start the amlodipine perhaps to get the blood pressure down if she is not on this medication. We will hold beta blockers. 3. History of dyslipidemia. She was taking Lipitor and will continue to take this medication. 4. Type 2 diabetes. This will be dealt with by the primary care service. 5. Chronic kidney disease. Her creatinine is 1.29 and appears to be stable at this time. We will be more than happy to continue to follow the patient with you, and further recommendations will depend on the results of the echocardiogram as well as the telemetry monitoring, whether or not her heart rate increases. Job ID: [id number]
[2018-12-04] MEDS: Acetaminophen 325 MG TAB PO PRN ×2 (03:34→17:03)
[2018-12-04] MEDS ORDERED: Amlodipine 5 MG TAB PO SCH (09:00)
[2018-12-04] MEDS: Aripiprazole 2 MG TAB PO SCH (09:01)
[2018-12-04] MEDS: valACYclovir 500 MG TAB PO SCH (09:01)
[2018-12-04] MEDS: Rosuvastatin 10 MG TAB PO SCH (09:01)
[2018-12-04] MEDS: Furosemide 20 MG TAB PO SCH (09:01)
[2018-12-04] MEDS: Bupropion 150 MG XL TAB PO SCH (09:01)
[2018-12-04] MEDS: Potassium Chloride 20 MEQ TAB PO SCH (09:01)
[2018-12-04] MEDS: Levothyroxine Sodium 50 MCG TAB PO SCH (09:02)
[2018-12-04] MEDS: Lisinopril 5 MG TAB PO SCH (09:02)
[2018-12-04 12:15] VITALS: BP 149/67; TEMP 98.5
--- NOTE | 2018-12-04 13:52 | PDOC.CPN ---
- Subjective Date: 12/04/18 Time: 13:55 Interval history: The pt seen and examined. No cardiac complaints. Per RN, the pt was very confused last night. - Review of Systems Neurological: reports: weakness - Objective Allergies/Adverse Reactions: Allergies Allergy/AdvReac Type Severity Reaction Status Date / Time No Known Drug Allergies Allergy Verified 06/11/18 13:47 Visit Medications: Current Medications Acetaminophen (Tylenol) 650 mg PO Q4H PRN PRN Reason: Headache/Fever/Mild Pain (1-3) Last Admin: 12/04/18 03:34 Dose: 650 mg Amlodipine Besylate (Norvasc) 5 mg PO DAILY [facility] Last Admin: 12/04/18 09:02 Dose: 5 mg Aripiprazole (Abilify) 2 mg PO DAILY [facility] Last Admin: 12/04/18 09:01 Dose: 2 mg Bupropion HCl (Wellbutrin Xl) 150 mg PO DAILY [facility] Last Admin: 12/04/18 09:01 Dose: 150 mg Clonazepam (Klonopin) 0.5 mg PO HS [facility] Last Admin: 12/03/18 21:19 Dose: 0.5 mg Dextrose/Water (Dextrose 50%) 25 gm SLOW IVP PRN PRN PRN Reason: Hypoglycemia Famotidine (Pepcid) 20 mg PO 2100 [facility] Last Admin: 12/03/18 21:19 Dose: 20 mg Furosemide (Lasix) 20 mg PO DAILY [facility] Last Admin: 12/04/18 09:01 Dose: 20 mg Glucagon (Glucagon) 1 mg IM PRN PRN PRN Reason: Hypoglycemia Dextrose/Water (D5w) 1,000 mls @ 0 mls/hr IV .Q0M PRN PRN Reason: Hypoglycemia Insulin Human Lispro (Humalog) 0 units SC .MILD SLIDING SCALE PRN PRN Reason: Mild Correctional Scale Insulin Human Lispro (Humalog) 0 units SC .BEDTIME SLIDING SC PRN PRN Reason: Bedtime Correctional Scale Levothyroxine Sodium (Synthroid) 50 mcg PO DAILY [facility] Last Admin: 12/04/18 09:02 Dose: 50 mcg Lisinopril (Zestril) 5 mg PO DAILY [facility] Last Admin: 12/04/18 09:02 Dose: 5 mg Ondansetron HCl (Zofran Odt) 4 mg PO Q6H PRN PRN Reason: Nausea/Vomiting Ondansetron HCl (Zofran) 4 mg IVP Q6H PRN PRN Reason: Nausea/Vomiting Potassium Chloride (K-Dur) 20 meq PO DAILY [facility] Last Admin: 12/04/18 09:01 Dose: 20 meq Prazosin HCl (Minipress) 2 mg PO HS [facility] Last Admin: 12/03/18 21:23 Dose: 2 mg Rosuvastatin Calcium (Crestor) 10 mg PO DAILY [facility] Last Admin: 12/04/18 09:01 Dose: 10 mg Valacyclovir HCl (Valtrex) 1,000 mg PO DAILY [facility] Last Admin: 12/04/18 09:01 Dose: 1,000 mg Vital Signs & Weight: Vital Signs Temp Pulse Resp BP BP BP BP 12/04/18 11:35 98.5 F 50 L 18 149/67 H 12/04/18 09:02 57 L 154/87 H 12/04/18 08:00 12/04/18 07:26 99 F 57 L 20 172/72 H 154/67 H 12/04/18 03:32 98.1 F 62 16 123/58 L BP Pulse Ox 12/04/18 11:35 96 12/04/18 09:02 12/04/18 08:00 95 12/04/18 07:26 168/72 H 95 12/04/18 03:32 96 Weight 190 lb 3.2 oz - Physical Exam General: other (A&O to self,situation, and place) Neck: supple neck Cardiac: regular rate and rhythm, bradycardia Lungs: clear to auscultation, decreased breath sounds Musculoskeletal: decreased range of motion - Labs Result Diagrams: 12/02/18 15:18 12/02/18 15:18 Troponin/CKMB Troponin I Less than 0.010 ng/mL (< 0.028) 12/02/18 15:18 - Telemetry Sinus rhythms and dysrhythmias: other (SB and SR HR 50-low 60s) - Assessment/Plan Assessment/Plan: 1. Bradycardia - slowly improving to 50 to low 60s; No bblocker for now;d/c home with 5-day EVR 2. HTN - stable 3. CKD stage 3 - no change 4. DM type 2 5. Hypothyroidism 6. Anxiety 7. Dementia MAR reviewed * Echo on 12/03/2018 with EF 65-70%, grade III dd, mild MR, TR, and MS * From Cardiac standpoint, the pt is stable to d/c home with 5 day EVR. The pt will f/u with Dr Deleon' office within 2-4 wks. (Discussed with the pt's son, Mr Lopez @ [phone] about her dementia symptoms at HS. He stated she usually sleeps well at HS without any confusion at home) Pt. seen and eval. by me. She remains confused . The event monitor has been applied. I agree with the A/P by the LUBRICATING ENGINEER. Chest clear. RRR, mild bradycardia. Hold betablockers. [email or web address]
--- NOTE | 2018-12-06 00:19 | DIS ---
DATE OF ADMISSION: 12/02/2018 DATE OF DISCHARGE: 12/04/2018 DISCHARGE DIAGNOSES: 1. Bradycardia, likely medication induced. 2. Diabetes. 3. Hypertension. 4. Hyperlipidemia. 5. Hypothyroidism. 6. History of mild anxiety, depression, and dementia per prior notes. 7. Chronic kidney disease stage 3. HISTORY: This patient is an 83-year-old female who presented via the emergency department from her primary care provider's office. The patient had apparently felt a bit restless and had some difficulties sleeping. Therefore, she presented to her PCP. There, she was noted to have a heart rate in the 30s. She was subsequently referred to the emergency department. There, she had some workup which was unremarkable. She did not demonstrate significant bradycardia on the monitor until she was about to be discharged. At that time, she had some recurrence of bradycardia in the 30s. HOSPITAL COURSE: The patient was placed in observation status. Her labs were generally unremarkable other than the GFR of 48. She had a normal TSH and T4. She was seen in consultation by Cardiology and an echocardiogram was obtained. The echo revealed EF of 65% to 70% with a restrictive filling pattern. She was noted to be bradycardic, should not have other significant structural abnormalities noted. Her beta maria l was held and her heart rate subsequently increased into the upper 50s and 60s and her blood pressure was only slightly elevated. With that, the patient was felt to be stable for discharge to home to have outpatient followup. Cardiology did recommend that the patient have a 5-day event monitor. The patcher MADELYN spoke with the patient's son, who felt that her dementia was minimal and she would be able to manage the event monitor adequately. Therefore, she was felt stable for discharge. PHYSICAL EXAMINATION: On the day of discharge, VITAL SIGNS: Temperature is 98.5, pulse ranged from 50 to 65, respirations 18, O2 saturation 96% on room air, BP was 149/67. GENERAL: She was awake and alert. HEART: Regular, slightly bradycardic. No murmurs. LUNGS: Clear bilaterally. ABDOMEN: Soft, nontender, and nondistended. EXTREMITIES: No cyanosis, clubbing, or edema. DISPOSITION: She is discharged to home. She will be on amlodipine 5 mg daily. She will continue with her other usual home medications. For full details, please see the discharge medication list. Of note, she should discontinue her atenolol. She will be on a heart healthy diet. She will have regular activity. FOLLOWUP: She is to follow up with Dr. Stiles in 7 days. She will follow up with Dr. Deleon in 7 days and she will have a 5-day event monitor placed at discharge. TIME SPENT: Total time in discharge activities including [id number] time with the patient and the communication with Cardiology was 34 minutes. Job ID: [id number] MTDD
== END 2018-12-04 18:06 | disposition home or self-care (01) | DRG 310 ==
LOC: ERS 13:01 → OBSVTOIN 16:21 → 2SW 16:21 → ERS 18:45
PROVIDERS: ADMIT Internal Medicine; ATTEND Internal Medicine
DX: R00.1 Bradycardia, unspecified (principal); E11.22 Type 2 diabetes mellitus with diabetic chronic kidney disease; I12.9 Hypertensive chronic kidney disease with stage 1 through stage 4 chronic kidney disease, or unspecified chronic kidney disease; E78.5 Hyperlipidemia, unspecified; E03.9 Hypothyroidism, unspecified; N18.3 Chronic kidney disease, stage 3 (moderate); F03.90 Unspecified dementia, unspecified severity, without behavioral disturbance, psychotic disturbance, mood disturbance, and anxiety; F32.9 Major depressive disorder, single episode, unspecified; K58.9 Irritable bowel syndrome, unspecified; F41.1 Generalized anxiety disorder; I08.1 Rheumatic disorders of both mitral and tricuspid valves; R41.0 Disorientation, unspecified; Z90.710 Acquired absence of both cervix and uterus
CPT/HCPCS: 36415; 36416; 71045; 80053; 82550; 84439; 84443; 84484; 85025; 93005; 93306

== ENCOUNTER 2018-12-15 14:04 | Emergency (ER) | payer MEDICARE ==
[2018-12-15 14:39] LABS: #Eosinphils 0.2 thou/uL (0.0-0.7); #Lymphocytes 1.8 thou/uL (1.20-3.40); #Monocytes 0.4 thou/uL (0.11-0.59); #Neutrophils 4.2 thou/uL (1.40-6.50); %Basophils 0.3 % (0.0-1.0); %Eosinophils 2.9 % (0.0-10.0); %Lymphocytes 27.3 % (21.0-51.0); %Monocytes 5.8 % (0.0-10.0); %Neutrophils 63.8 % (42.0-75.0); Hemoglobin 12.1 g/dL (12.0-16.0); Mean Corpuscular HGB CONC 32.3 g/dL (32.0-36.0); Mean Corpuscular Hemoglobin 31.6 pg (27.0-31.0); Mean Corpuscular Volume 97.7 fL (78.0-98.0); Mean Platelet Volume 10.2 fL (7.4-10.4); Platelet Count 167 thou/uL (130-400); RBC Distribution Width 14.6 % (11.5-14.5); Red Blood Cell (RBC) Count 3.84 mill/uL (4.20-5.40); White Blood Cell (WBC) Count 6.6 thou/uL (4.8-10.8)
--- NOTE | 2018-12-15 14:49 | RAD ---
FRONTAL VIEW CHEST: 12/15/18 COMPARISON: 12/02/18. INDICATION: Emergency exam for abdominal pain. FINDINGS: Hyperinflation of the lungs with bilateral interstitial and linear densities. There is mild haziness of the right lung base with slight obscuration of the right costophrenic sulcus that could relate to pleural thickening or mild pleural fluid. Cardiac silhouette is enlarged. Mild vascular prominence. N o pneumothorax. IMPRESSION: 1. Findings favor mild fluid overload from cardiogenic edema. Correlate clinically. 2. COPD. POS: TPC
[2018-12-15 15:08] LABS: ALT (SGPT) 26 U/L (8-55); AST (SGOT) 28 U/L (5-34); Albumin 4.4 g/dL (3.4-4.8); Alkaline Phosphatase 86 U/L (40-150); Anion Gap 13 mmol/L (10-20); BUN (Urea Nitrogen) 21 mg/dL (9.8-20.1); Bilirubin, Total 0.4 mg/dL (0.2-1.2); Calc. Creatinine Clearance 0 mL/min (70-130); Calcium 9.9 mg/dL (7.8-10.44); Carbon Dioxide 24 mmol/L (23-31); Chloride 111 mmol/L (98-107); Estimated GFR-MDRD 38; Globulin 3.3 g/dL (2.4-3.5); Glucose 114 mg/dL (83-110); Lipase 87 U/L (8-78); Potassium 4.4 mmol/L (3.5-5.1); Protein, Total 7.7 g/dL (6.0-8.3); Sodium 144 mmol/L (136-145)
--- NOTE | 2018-12-15 17:12 | CT ---
CT ABDOMEN NONCONTRAST CT PELVIS NONCONTRAST: (Urolithiasis protocol) DATE: 12/15/2018 HISTORY: 83-year-old female with intermittent generalized abdominal pain. TECHNIQUE: IV injection of iodinated contrast media: None Oral contrast media: None FINDINGS: Other than for urolithiasis, the lack of IV and oral contrast limits the evaluation. Liver: No contour abnormalities. Spleen: No splenomegaly. Pancreas: No contour abnormalities. Adrenals: No mass. Kidneys: No nephrolithiasis or overt hydronephrosis. Ureters: No calculi. Bladder: No calculi. Abdominal aorta: No aneurysm. Small bowel: No dilation. Colon: No adjacent fat stranding. Appendix: No dilation or adjacent fat stranding. Free air: None Free fluid: None Lumbar spine: Multilevel high-grade degenerative disc disease and high-grade facet osteoarthrosis. IMPRESSION: 1. No acute findings. 2. High-grade lumbar spondylosis
[2018-12-15 17:35] LABS: Bilirubin Negative (Negative); Blood, Urine Negative (Negative); Clarity Clear (Clear); Glucose, Urine (Dipstick) Normal (Negative); Leukocyte Negative Leu/uL (Negative); Nitrite Negative (Negative); Protein, Urine (Dipstick) Negative (Neg-Trace); Urobilinogen Normal mg/dL (Less than 2)
--- NOTE | 2018-12-19 15:08 | EKG ---
Test Reason : Blood Pressure : / mmHG Vent. Rate : 046 BPM Atrial Rate : 046 BPM P-R Int : 210 ms QRS Dur : 092 ms QT Int : 462 ms P-R-T Axes : 061 -35 -08 degrees QTc Int : 404 ms Sinus bradycardia with 1st degree A-V block Left axis deviation Low voltage QRS Cannot rule out Anterior infarct , age undetermined Abnormal ECG No change from 12/02/2018 Confirmed by FAUSTINO JARA DO ([id number]), continuity editor SHRAVAN GREGG ([id number]) on 12/19/2018 3:08:03 PM Referred By: Confirmed By:FAUSTINO JARA DO
== END 2018-12-15 18:13 | disposition home or self-care (01) ==
LOC: ERS 14:04
DX: R10.9 Unspecified abdominal pain (principal); E11.9 Type 2 diabetes mellitus without complications; I10 Essential (primary) hypertension; Z87.891 Personal history of nicotine dependence
CPT/HCPCS: 36415; 71045; 74176; 80053; 81003; 83690; 83880; 84484; 85025; 93005; 94760

== ENCOUNTER 2019-01-12 09:32 | Emergency (ER) | payer MEDICARE ==
[2019-01-12 11:49] LABS: #Basophils 0.1 thou/uL (0.0-0.2); #Eosinphils 0.1 thou/uL (0.0-0.7); #Lymphocytes 1.2 thou/uL (1.20-3.40); #Monocytes 0.4 thou/uL (0.11-0.59); #Neutrophils 4.3 thou/uL (1.40-6.50); %Basophils 1.2 % (0.0-1.0); %Eosinophils 2.1 % (0.0-10.0); %Lymphocytes 19.6 % (21.0-51.0); %Monocytes 6.9 % (0.0-10.0); %Neutrophils 70.2 % (42.0-75.0); Mean Corpuscular Volume 96.7 fL (78.0-98.0); Mean Platelet Volume 10.4 fL (7.4-10.4); Platelet Count 154 thou/uL (130-400); RBC Distribution Width 13.7 % (11.5-14.5); Red Blood Cell (RBC) Count 3.86 mill/uL (4.20-5.40); White Blood Cell (WBC) Count 6.1 thou/uL (4.8-10.8)
[2019-01-12 12:19] LABS: ALT (SGPT) 17 U/L (8-55); AST (SGOT) 19 U/L (5-34); Albumin 4.1 g/dL (3.4-4.8); Alkaline Phosphatase 86 U/L (40-110); Anion Gap 16 mmol/L (10-20); BUN (Urea Nitrogen) 20 mg/dL (9.8-20.1); Bilirubin, Total 0.5 mg/dL (0.2-1.2); Calc. Creatinine Clearance 0 mL/min (70-130); Calcium 9.7 mg/dL (7.8-10.44); Carbon Dioxide 23 mmol/L (23-31); Chloride 107 mmol/L (98-107); Estimated GFR-MDRD 40; Globulin 3.8 g/dL (2.4-3.5); Glucose 83 mg/dL (83-110); Lipase 68 U/L (8-78); Potassium 4.1 mmol/L (3.5-5.1); Protein, Total 7.9 g/dL (6.0-8.3); Sodium 142 mmol/L (136-145)
[2019-01-12 13:31] LABS: Bilirubin Negative (Negative); Blood, Urine Negative (Negative); Clarity Clear (Clear); Glucose, Urine (Dipstick) Normal (Negative); Leukocyte Negative Leu/uL (Negative); Nitrite Negative (Negative); Protein, Urine (Dipstick) Negative (Neg-Trace); Urobilinogen Normal mg/dL (Less than 2)
== END 2019-01-12 14:13 | disposition home or self-care (01) ==
LOC: ERS 09:32
DX: R10.9 Unspecified abdominal pain (principal); E11.9 Type 2 diabetes mellitus without complications; I10 Essential (primary) hypertension; E78.00 Pure hypercholesterolemia, unspecified; F41.9 Anxiety disorder, unspecified; Z87.891 Personal history of nicotine dependence
CPT/HCPCS: 36415; 80053; 81003; 83690; 84484; 85025; 93005

== ENCOUNTER 2019-02-16 17:33 | Emergency (ER) | payer MEDICARE ==
[2019-02-16 18:22] LABS: #Basophils 0.1 thou/uL (0.0-0.2); #Eosinphils 0.2 thou/uL (0.0-0.7); #Lymphocytes 1.9 thou/uL (1.20-3.40); #Monocytes 0.5 thou/uL (0.11-0.59); #Neutrophils 4.7 thou/uL (1.40-6.50); %Basophils 0.9 % (0.0-1.0); %Eosinophils 2.5 % (0.0-10.0); %Lymphocytes 26.5 % (21.0-51.0); %Monocytes 6.5 % (0.0-10.0); %Neutrophils 63.7 % (42.0-75.0); Hemoglobin 11.9 g/dL (12.0-16.0); Mean Corpuscular HGB CONC 32.3 g/dL (32.0-36.0); Mean Corpuscular Hemoglobin 30.6 pg (27.0-31.0); Mean Corpuscular Volume 94.8 fL (78.0-98.0); Mean Platelet Volume 10.3 fL (7.4-10.4); Platelet Count 173 thou/uL (130-400); RBC Distribution Width 14.1 % (11.5-14.5); White Blood Cell (WBC) Count 7.3 thou/uL (4.8-10.8)
[2019-02-16 18:42] LABS: ALT (SGPT) 10 U/L (8-55); AST (SGOT) 17 U/L (5-34); Albumin 4.3 g/dL (3.4-4.8); Alkaline Phosphatase 84 U/L (40-110); Anion Gap 13 mmol/L (10-20); BUN (Urea Nitrogen) 19 mg/dL (9.8-20.1); Bilirubin, Total 0.3 mg/dL (0.2-1.2); Calc. Creatinine Clearance 0 mL/min (70-130); Calcium 9.9 mg/dL (7.8-10.44); Carbon Dioxide 25 mmol/L (23-31); Chloride 107 mmol/L (98-107); Estimated GFR-MDRD 43; Globulin 3.5 g/dL (2.4-3.5); Glucose 76 mg/dL (83-110); Lipase 133 U/L (8-78); Potassium 3.9 mmol/L (3.5-5.1); Protein, Total 7.8 g/dL (6.0-8.3); Sodium 141 mmol/L (136-145)
[2019-02-16 19:25] LABS: Bilirubin Negative (Negative); Blood, Urine Negative (Negative); Clarity Clear (Clear); Glucose, Urine (Dipstick) Normal (Negative); Leukocyte Negative Leu/uL (Negative); Nitrite Negative (Negative); Protein, Urine (Dipstick) Negative (Neg-Trace); Urobilinogen Normal mg/dL (Less than 2)
[2019-02-16] MEDS ORDERED: Fentanyl 100 MCG/2 ML VIAL ONE (19:41)
[2019-02-16] MEDS ORDERED: Haloperidol Lactate 5 MG/ML VIAL ONE (19:41)
[2019-02-16] MEDS ORDERED: Metoclopramide HCl 10 MG/2 ML VIAL ONE (19:41)
== END 2019-02-16 21:06 | disposition home or self-care (01) ==
LOC: ERS 17:33
DX: R10.9 Unspecified abdominal pain (principal); E11.9 Type 2 diabetes mellitus without complications; E78.00 Pure hypercholesterolemia, unspecified; I10 Essential (primary) hypertension; F41.9 Anxiety disorder, unspecified; Z87.891 Personal history of nicotine dependence; Z79.899 Other long term (current) drug therapy
CPT/HCPCS: 80053; 81003; 83690; 85025; J1630; J2765; J3010

== ENCOUNTER 2019-03-08 19:27 | Emergency (ER) | payer MEDICARE ==
[2019-03-08 20:34] LABS: #Basophils 0.1 thou/uL (0.0-0.2); #Eosinphils 0.3 thou/uL (0.0-0.7); #Lymphocytes 2.1 thou/uL (1.20-3.40); #Monocytes 0.5 thou/uL (0.11-0.59); #Neutrophils 6.1 thou/uL (1.40-6.50); %Basophils 0.9 % (0.0-1.0); %Eosinophils 3.2 % (0.0-10.0); %Lymphocytes 22.9 % (21.0-51.0); %Monocytes 5.5 % (0.0-10.0); %Neutrophils 67.6 % (42.0-75.0); Hemoglobin 12.2 g/dL (12.0-16.0); Mean Corpuscular Hemoglobin 31.5 pg (27.0-31.0); Mean Corpuscular Volume 95.4 fL (78.0-98.0); Mean Platelet Volume 9.3 fL (7.4-10.4); Platelet Count 207 thou/uL (130-400); RBC Distribution Width 13.8 % (11.5-14.5); Red Blood Cell (RBC) Count 3.87 mill/uL (4.20-5.40)
[2019-03-08 21:00] LABS: ALT (SGPT) 11 U/L (8-55); AST (SGOT) 17 U/L (5-34); Albumin 3.8 g/dL (3.4-4.8); Alkaline Phosphatase 88 U/L (40-110); Anion Gap 15 mmol/L (10-20); BUN (Urea Nitrogen) 15 mg/dL (9.8-20.1); Bilirubin, Total 0.3 mg/dL (0.2-1.2); Calc. Creatinine Clearance 0 mL/min (70-130); Calcium 9.2 mg/dL (7.8-10.44); Carbon Dioxide 21 mmol/L (23-31); Chloride 108 mmol/L (98-107); Estimated GFR-MDRD 55; Globulin 3.6 g/dL (2.4-3.5); Glucose 78 mg/dL (83-110); Lipase 107 U/L (8-78); Potassium 3.7 mmol/L (3.5-5.1); Protein, Total 7.4 g/dL (6.0-8.3); Sodium 140 mmol/L (136-145)
[2019-03-08] MEDS ORDERED: Diazepam 10 MG/2 ML SYRINGE ONE (22:26)
[2019-03-08 22:57] LABS: Bilirubin Negative (Negative); Blood, Urine Negative (Negative); Clarity Clear (Clear); Glucose, Urine (Dipstick) Normal (Negative); Leukocyte Negative Leu/uL (Negative); Nitrite Negative (Negative); Protein, Urine (Dipstick) Negative (Neg-Trace); Urobilinogen Normal mg/dL (Less than 2)
[2019-03-08 23:33] LABS: Lactic Acid 1.2 mmol/L (0.5-2.2)
[2019-03-08] MEDS ORDERED: clonazePAM 0.5 MG TAB ONE (23:57)
== END 2019-03-09 00:06 | disposition home or self-care (01) ==
LOC: ERS 19:27
DX: R25.2 Cramp and spasm (principal); E11.9 Type 2 diabetes mellitus without complications; I10 Essential (primary) hypertension; E78.5 Hyperlipidemia, unspecified; F41.9 Anxiety disorder, unspecified; Z79.899 Other long term (current) drug therapy; Z87.891 Personal history of nicotine dependence
CPT/HCPCS: 36415; 80053; 81003; 83605; 83690; 85025; 96374; J3360

== ENCOUNTER 2019-03-20 09:59 | Observation (INO) | payer MEDICARE ==
[2019-03-20 10:41] LABS: #Eosinphils 0.2 thou/uL (0.0-0.7); #Lymphocytes 1.9 thou/uL (1.20-3.40); #Monocytes 0.5 thou/uL (0.11-0.59); #Neutrophils 4.1 thou/uL (1.40-6.50); %Basophils 0.6 % (0.0-1.0); %Eosinophils 3.4 % (0.0-10.0); %Lymphocytes 27.7 % (21.0-51.0); %Monocytes 7.4 % (0.0-10.0); %Neutrophils 60.9 % (42.0-75.0); Mean Corpuscular HGB CONC 33.3 g/dL (32.0-36.0); Mean Corpuscular Hemoglobin 31.1 pg (27.0-31.0); Mean Corpuscular Volume 93.5 fL (78.0-98.0); Mean Platelet Volume 9.6 fL (7.4-10.4); Platelet Count 176 thou/uL (130-400); Red Blood Cell (RBC) Count 3.86 mill/uL (4.20-5.40); White Blood Cell (WBC) Count 6.7 thou/uL (4.8-10.8)
[2019-03-20 11:05] LABS: ALT (SGPT) 8 U/L (8-55); AST (SGOT) 15 U/L (5-34); Albumin 3.8 g/dL (3.4-4.8); Alkaline Phosphatase 84 U/L (40-110); Anion Gap 14 mmol/L (10-20); BUN (Urea Nitrogen) 16 mg/dL (9.8-20.1); Bilirubin, Total 0.4 mg/dL (0.2-1.2); Calc. Creatinine Clearance 0 mL/min (70-130); Calcium 9.6 mg/dL (7.8-10.44); Carbon Dioxide 21 mmol/L (23-31); Chloride 110 mmol/L (98-107); Estimated GFR-MDRD 52; Globulin 3.5 g/dL (2.4-3.5); Glucose 72 mg/dL (83-110); Lipase 203 U/L (8-78); Potassium 3.9 mmol/L (3.5-5.1); Protein, Total 7.3 g/dL (6.0-8.3); Sodium 141 mmol/L (136-145)
[2019-03-20 11:06] LABS: Bilirubin Negative (Negative); Blood, Urine Negative (Negative); Clarity Clear (Clear); Glucose, Urine (Dipstick) Normal (Negative); Leukocyte 25 Leu/uL (Negative); Nitrite Negative (Negative); Protein, Urine (Dipstick) Negative (Neg-Trace); RBC/HPF 0-3 HPF (0-3); Squamous Epithelial 0-3 HPF (0-3); Urobilinogen Normal mg/dL (Less than 2); WBC/HPF 0-3 HPF (0-3)
[2019-03-20] MEDS ORDERED: Iopamidol-370 76% 500 ML 1 ML ONE (11:07)
[2019-03-20 11:14] LABS: Bacteria/HPF Rare-Few HPF (None Seen)
[2019-03-20] MEDS ORDERED: Ondansetron PF 4 MG/2 ML Vial ONE (12:16)
[2019-03-20] MEDS ORDERED: Morphine 4 MG/ML VIAL ONE (12:16)
[2019-03-20] MEDS ORDERED: Sodium Chloride 0.9% 1,000 ML IV SCH ×2 (12:31→15:10)
--- NOTE | 2019-03-20 13:46 | CT ---
CT of abdomen and pelvis: 03/20/2019 COMPARISON: 08/24/2018 and 12/15/2018 HISTORY: Abdominal pain TECHNIQUE: Axial CT imaging at 5 mm intervals from the lung bases through the pubic symphysis with in travenous contrast. Coronal and sagittal reformatted imaging obtained. FINDINGS: Imaged lung bases unremarkable. No free intraperitoneal air or fluid. Splenic and hepatic granulomata noted. Limited assessment of the gallbladder is unremarkable. The gracia creas, bilateral adrenal glands, and bilateral kidneys demonstrate no acute findings. There is mild/moderate distention of the urinary bladder. Limited assessment of the bowel without oral contrast media demonstrates mild sigmoid diverticulosis without evidence for diverticulitis. No evidence for bowel inflammatory change or obstruction. The appendix appears unremarkable. There is atherosclerotic calcification of the infrarenal abdominal aorta and the arterial structures of the pelvis, most significantly affecting the internal iliac arteries bilaterally. No abdominal or pelvic lymphadenopathy is noted. Review of the osseous structures demonstrates multilevel degenerative change within the imaged spine, particularly the facet joints of the lower lumbar spine. No worrisome lytic or blastic bone lesion. IMPRESSION: Numerous chronic findings as detailed above. No evidence for bowel obstruction or free in traperitoneal air.
[2019-03-20 14:17] LABS: Cardiac Risk 2.5 (Less than 4.5)
[2019-03-20 15:03] VITALS: BMI 27.3
[2019-03-20] MEDS ORDERED: Dextrose 5% in Water 1,000 ML IV PRN (15:05)
[2019-03-20] MEDS ORDERED: Dextrose 50% Abboject 50 ML SYRINGE SLOW IVP PRN (15:05)
[2019-03-20] MEDS ORDERED: HumaLOG 300 UNITS/3 ML VIAL SC PRN (15:05)
[2019-03-20] MEDS ORDERED: Ondansetron PF 4 MG/2 ML Vial IVP PRN (15:18)
[2019-03-20] MEDS: Sodium Chloride 0.9% 1,000 ML IV SCH (16:19)
--- NOTE | 2019-03-20 17:33 | HP ---
CHIEF COMPLAINT: Abdominal pain. HISTORY OF PRESENT ILLNESS: The patient is an 83-year-old female, who is presenting to the emergency room with abdominal pain which is more generalized. This is associated with some nausea. No vomiting though. No diarrhea. She called her doctor, who is Dr. Stiles. Yesterday, she left a message, but she never received any call back, so she decided to come to the emergency room. She states that she has a lot of jumping of her body, and when it gets quite severe, it causes a lot of pain in her abdomen. She was seen in the emergency room prior to this ER visit today, 4 times in the last 3 months. She had never been scoped, although in medical history, I found that she had a colonoscopy done in 2019, but that is the only information I can find about her scoping. She denies any chest pain, fever, chills, cough, or shortness of breath. She moves her bowels usually every other day, and she almost never has any diarrhea. Her surrogate decision maker is her son, Sergio Owen. She wants to be full code. PAST MEDICAL HISTORY: Positive for: 1. Myoclonus. 2. Irritable bowel syndrome. 3. Recurrent diverticulitis. 4. Type 2 diabetes mellitus. 5. Hyperlipidemia. 6. Hypertension. 7. Anxiety and depression. 8. Mild anemia. 9. Dementia. 10. Hypothyroidism. PAST SURGICAL HISTORY: Hysterectomy with bilateral salpingo-oophorectomy. FAMILY HISTORY: Heart disease, diabetes, and CVA. SOCIAL HISTORY: She used to smoke, but quit very long time ago. She does not drink any alcohol. She does not use any illicit drugs. ALLERGIES: NONE. HOME MEDICATIONS: Please refer to the list, which is not available at the time of my dictation. REVIEW OF SYSTEMS: All 14 systems were reviewed, and only symptoms which are mentioned in HPI are positive. The rest are negative. PHYSICAL EXAMINATION: VITAL SIGNS: Blood pressure is 124/65, pulse is 62, respiratory rate is 27, O2 saturation is 99%. GENERAL: She is in some distress during my visit. She has very frequent jerks of her body, which mainly affects her chest and abdomen. HEENT: Head is atraumatic and normocephalic. Eyes are PERRLA. Sclerae are nonicteric. Conjunctivae are pinkish. Oral mucosa is somewhat dry. NECK: Supple. LUNGS: Clear. HEART: S1 and S2 are normal. No S3. No S4. No any murmur. ABDOMEN: Soft, but tender in all locations to palpation, mild to deep. Bowel sounds are present, active. EXTREMITIES: No clubbing, cyanosis, or edema. NEUROLOGIC: She is alert and oriented x4. There are no any motor deficits. She has almost continuous myoclonic jerks of her abdomen and chest. LABORATORY DATA: White count of 6.7, hemoglobin 12.0, hematocrit 36.1, platelet count is 176,000. Sodium of 141, potassium 3.9, chloride 110, CO2 of 21, BUN 16, creatinine 1.20. Triglycerides 101, total cholesterol 146, LDL 68, HDL 58. Lipase 203. Urinalysis within normal limits. CT of the abdomen and pelvis with contrast showed numerous chronic findings like multilevel degenerative change within the imaged spine, particularly the facet joints of the lower lumbar spine, but no lytic or blastic bone lesions. There was no any free intraperitoneal air or fluid. There was splenic and hepatic granulomata noted. Gallbladder was unremarkable. Pancreas, bilateral adrenal glands, and bilateral kidneys demonstrated no acute findings. There was mild/moderate distention of the urinary bladder. Also, there was mild sigmoid diverticulosis without evidence for diverticulitis. No evidence for bowel inflammatory change or obstruction. The appendix appeared unremarkable. She had atherosclerotic calcification of the infrarenal abdominal aorta and arterial structures of the pelvis, most significantly affecting the internal iliac arteries bilaterally. IMPRESSION: 1. Abdominal pain with elevated, mildly, lipase level. I believe that this is most likely secondary to her severe myoclonus, although she is a very poor historian, and it is really difficult to separate her jerking from abdominal pain. 2. Irritable bowel syndrome. 3. History of diverticulosis and history of recurrent diverticulitis. 4. Type 2 diabetes mellitus. 5. Hyperlipidemia. 6. Hypertension. 7. Hypothyroidism. 8. Anxiety and depression. 9. History of some dementia. PLAN: Admission for observation. Condition is fair. Activity is bedrest and bathroom privileges. IV normal saline at 100 mL/hour. Clear liquids. Neurologic consultation for severe myoclonus. P.r.n. pain medications for abdominal pain. We are going to follow up with lipase level tomorrow morning, but I do not think this represents any significant inflammatory process in her pancreas since the CT was negative for any edema or inflammation. We will do DVT prophylaxis with SCDs and Lovenox. Job ID: [id number]
[2019-03-20] MEDS: Rosuvastatin 10 MG TAB PO SCH (20:18)
[2019-03-20] MEDS: clonazePAM 1 MG TAB PO SCH (20:18)
[2019-03-20] MEDS ORDERED: HYDROcodone/Acetaminophen 5/325 mg Tablet PO PRN (20:41)
[2019-03-21] MEDS: Prazosin HCl 1 MG CAP PO SCH ×2 (00:01→20:04)
[2019-03-21] MEDS: valACYclovir 500 MG TAB PO SCH ×2 (00:01→20:07)
[2019-03-21] MEDS: Sodium Chloride 0.9% 1,000 ML IV SCH ×3 (01:09→20:15)
[2019-03-21] MEDS: HYDROcodone/Acetaminophen 5/325 mg Tablet PO PRN ×2 (03:53→16:15)
[2019-03-21] MEDS: Levothyroxine Sodium 50 MCG TAB PO SCH (05:45)
[2019-03-21] MEDS: Alogliptin 25 MG TAB PO SCH (08:34)
[2019-03-21] MEDS: Furosemide 20 MG TAB PO SCH (08:34)
[2019-03-21] MEDS: clonazePAM 1 MG TAB PO SCH ×2 (08:34→20:03)
[2019-03-21] MEDS: Escitalopram Oxalate 10 mg Tablet PO SCH (08:35)
[2019-03-21] MEDS: Potassium Chloride 20 MEQ TAB PO SCH (08:35)
[2019-03-21] MEDS: buPROPion 75 MG TAB PO SCH (08:35)
[2019-03-21] MEDS: Amlodipine 5 MG TAB PO SCH (08:35)
[2019-03-21] MEDS: Lisinopril 5 MG TAB PO SCH (08:36)
[2019-03-21] MEDS: Enoxaparin Sodium 40 MG/0.4 ML SYRINGE SC SCH (08:36)
[2019-03-21 11:32] LABS: #Eosinphils 0.4 thou/uL (0.0-0.7); #Lymphocytes 2.2 thou/uL (1.20-3.40); #Monocytes 0.6 thou/uL (0.11-0.59); #Neutrophils 3.1 thou/uL (1.40-6.50); %Basophils 0.4 % (0.0-1.0); %Eosinophils 5.6 % (0.0-10.0); %Lymphocytes 35.6 % (21.0-51.0); %Monocytes 8.9 % (0.0-10.0); %Neutrophils 49.6 % (42.0-75.0); Hemoglobin 12.6 g/dL (12.0-16.0); Mean Corpuscular HGB CONC 34.3 g/dL (32.0-36.0); Mean Corpuscular Hemoglobin 32.6 pg (27.0-31.0); Platelet Count 145 thou/uL (130-400); RBC Distribution Width 14.2 % (11.5-14.5); Red Blood Cell (RBC) Count 3.86 mill/uL (4.20-5.40); White Blood Cell (WBC) Count 6.3 thou/uL (4.8-10.8)
[2019-03-21 12:11] LABS: ALT (SGPT) 8 U/L (8-55); AST (SGOT) 17 U/L (5-34); Albumin 3.3 g/dL (3.4-4.8); Alkaline Phosphatase 75 U/L (40-110); Anion Gap 15 mmol/L (10-20); BUN (Urea Nitrogen) 10 mg/dL (9.8-20.1); Bilirubin, Total 0.4 mg/dL (0.2-1.2); Calc. Creatinine Clearance 47 mL/min (70-130); Calcium 8.2 mg/dL (7.8-10.44); Carbon Dioxide 18 mmol/L (23-31); Chloride 112 mmol/L (98-107); Estimated GFR-MDRD 60; Globulin 3.3 g/dL (2.4-3.5); Glucose 76 mg/dL (83-110); Lipase 449 U/L (8-78); Potassium 4.7 mmol/L (3.5-5.1); Protein, Total 6.6 g/dL (6.0-8.3); Sodium 139 mmol/L (136-145)
--- NOTE | 2019-03-21 13:19 | CON ---
DATE OF CONSULTATION: CHIEF COMPLAINT: Abdominal myoclonus. HISTORY OF PRESENT ILLNESS: The patient is an 83-year-old lady, who comes in with abdominal pain, but was noted to have abdominal myoclonus and was started on Klonopin. She did not have any diarrhea and she has myoclonus and as it gets severe, it can cause pain in her abdomen. She had a colonoscopy in 2019 and has a prior diagnosis of some GI symptoms. At this time, she does not have any other symptoms other than abdominal myoclonus. PREVIOUS MEDICAL HISTORY: Myoclonus, irritable bowel syndrome, diverticulitis, diabetes, hyperlipidemia, dementia, anxiety and depression, anemia, hypothyroidism. SURGICAL HISTORY: Hysterectomy. FAMILY HISTORY: Positive for heart disease, diabetes, and stroke. SOCIAL HISTORY: She used to smoke, but quit long time ago. She does not drink any alcohol. No drug use. ALLERGIES: NONE. MEDICATIONS: As reviewed per chart. REVIEW OF SYSTEMS: PULMONARY: Negative for shortness of breath or cough. GI: Negative for any nausea, vomiting, or diarrhea, but positive for abdominal pain. GENITOURINARY: Negative for bladder symptoms. DERMATOLOGIC: Negative for any skin rash. NEUROLOGICAL: Positive for involuntary movements. LABORATORY DATA: White count 6.3, hemoglobin 12.6, hematocrit 36.7, platelet count 145. Sodium 139, potassium 4.7, chloride 112, bicarb 18, BUN 10, creatinine 1.06. Lipid profile within normal limits. Urinalysis is negative and no imaging results available. PHYSICAL EXAMINATION: VITAL SIGNS: Temperature 97.7, pulse 65, blood pressure 104/63, O2 saturations 94, and respiratory rate is 20. GENERAL APPEARANCE: Well-built, well-nourished, elderly lady, who is comfortable. CHEST: Clear vesicular breathing. CARDIOVASCULAR: S1 and S2 heard. No murmurs. ABDOMEN: Soft. NEUROLOGIC: Higher intellectual functions, normal orientation to time, place, and person. Appropriate conversation, but seems to have some knowledge gaps. Cranial nerves 2 through 12 are normal. Normal extraocular movements. Tongue midline. Normal sensation of face bilaterally. Normal hearing to finger rub. Pupils are reactive bilaterally to light. Motor examination; bulk normal, tone normal, strength 5/5 in upper and lower extremities in iliopsoas, hamstrings, quadriceps, ankle dorsiflexion, plantar flexion, deltoid, biceps, triceps, wrist extension and flexion, finger extension and flexion. Deep tendon reflexes were absent in lower limbs, but 2+ in upper extremities. Sensory and cerebellar, normal. Involuntary movements, the patient has abdominal myoclonus involving rectus abdominis muscle. IMPRESSION: The patient is an 83-year-old lady, who comes in with abdominal pain due to myoclonus. At this time, it is unclear what the etiology of this involuntary movement is. Her rest of the neurological examination is normal. She likely has mild dementia as well. We need to understand if there is any underlying spinal cord abnormality. RECOMMENDATIONS: MRI of the thoracic and lumbar spine to rule out any structural lesion that could be causing myoclonus. Most commonly, we do not see structural lesions in the setting of abdominal myoclonus. I suggest adding Keppra 500 mg b.i.d. if clonazepam does not seem to help. At this time, since her myoclonus is somewhat controlled, we can continue with the Klonopin 1 mg b.i.d. Please call if you have any further questions. Job ID: [id number]
[2019-03-21] MEDS ORDERED: Acetaminophen 325 MG TAB PO PRN (14:56)
--- NOTE | 2019-03-21 14:58 | PDOC.HOSPP ---
- Subjective Encounter Date: 03/21/19 Encounter Time: 14:56 Subjective: Ms. Owen was seen today in follow-up of abdominal pain and myoclonus. She says she is doing much better today. Sh has had less involuntary abdominal muscle movements. - Objective Vital Signs & Weight: Vital Signs (12 hours) Temp Pulse Resp BP BP Pulse Ox 03/21/19 13:16 81 96 03/21/19 11:00 97.7 F 65 20 104/63 94 L 03/21/19 08:36 55 L 118/61 03/21/19 08:35 55 L 118/61 03/21/19 07:58 98.1 F 55 L 20 118/61 95 03/21/19 05:00 53 L 03/21/19 04:56 98.1 F 45 L 12 125/53 L 92 L Weight Weight 164 lb 9 oz Result Diagrams: 03/21/19 11:18 03/21/19 11:18 Additional Labs: Accuchecks 03/21/19 03/21/19 03/20/19 11:56 05:35 20:52 POC Glucose 75 69 L 75 03/20/19 16:55 POC Glucose 103 Hospitalist ROS - Medication Medications: Active Medications Generic Name Dose Route Start Last Admin Trade Name Freq PRN Reason Stop Dose Admin Hydrocodone Bitart/Acetaminophen 1 tab 03/20/19 20:41 03/21/19 03:53 [place] 5/325 PO 1 tab Q4H PRN Administration Moderate Pain (4-6) Alogliptin Benzoate 12.5 mg 03/21/19 09:00 03/21/19 08:34 Alogliptin PO 12.5 mg DAILY ABBE Administration Amlodipine Besylate 5 mg 03/21/19 09:00 03/21/19 08:35 Norvasc PO 5 mg DAILY ABBE Administration Bupropion HCl 150 mg 03/21/19 09:00 03/21/19 08:35 Wellbutrin PO 150 mg QAM ABBE Administration Clonazepam 1 mg 03/20/19 21:00 03/21/19 08:34 Klonopin PO 1 mg BID ABBE Administration Enoxaparin Sodium 40 mg 03/21/19 09:00 03/21/19 08:36 Lovenox SC 40 mg 0900 ABBE Administration Escitalopram Oxalate 5 mg 03/21/19 09:00 03/21/19 08:35 Lexapro PO 5 mg QAM ABBE Administration Furosemide 20 mg 03/21/19 09:00 03/21/19 08:34 Lasix PO 20 mg QAM ABBE Administration Sodium Chloride 1,000 mls @ 100 mls/hr 03/20/19 15:18 03/21/19 10:31 Normal Saline 0.9% IV 1,000 mls .Q10H ABBE Administration Levothyroxine Sodium 50 mcg 03/21/19 06:00 03/21/19 05:45 Synthroid PO 50 mcg 0600 ABBE Administration Lisinopril 5 mg 03/21/19 09:00 03/21/19 08:36 Zestril PO Not Given DAILY ABBE Potassium Chloride 20 meq 03/21/19 09:00 03/21/19 08:35 K-Dur PO 20 meq QAM ABBE Administration Prazosin HCl 2 mg 03/20/19 21:00 03/21/19 00:01 Minipress PO Not Given HS ABBE Quetiapine Fumarate 25 mg 03/20/19 21:00 03/20/19 20:18 Seroquel PO 25 mg HS ABBE Administration Rosuvastatin Calcium 10 mg 03/20/19 21:00 03/20/19 20:18 Crestor PO 10 mg HS ABBE Administration Valacyclovir HCl 1,000 mg 03/20/19 21:00 03/21/19 00:01 Valtrex PO Not Given QPM ABEB - Exam Eye: PERRL Heart: RRR, no murmur, normal peripheral pulses Respiratory: CTAB, no wheezes, no rales, no ronchi, normal chest expansion Gastrointestinal: soft, non-tender, non-distended, normal bowel sounds, no palpable masses Extremities: 1+ LE edema Hosp A/P (1) Myoclonus Code(s): G25.3 - MYOCLONUS Status: Acute (2) DM type 2 (diabetes mellitus, type 2) Status: Chronic (3) Hypertension Code(s): I10 - ESSENTIAL (PRIMARY) HYPERTENSION Status: Chronic Qualifiers: Hypertension type: essential hypertension Qualified Code(s): I10 - Essential (primary) hypertension (4) Hypothyroidism Code(s): E03.9 - HYPOTHYROIDISM, UNSPECIFIED Status: Chronic - Plan * Abdominal wall Myoclonus- Neurology input noted * An MRI of the thoracic and lumbar spine has been ordered * Will advance her diet * HTN- blood pressure is stable * DM- blood glucose is a bit low- will advance her diet, and continue SSI
[2019-03-21] MEDS: Baclofen 10 MG TAB PO PRN (17:04)
[2019-03-21] MEDS: Rosuvastatin 10 MG TAB PO SCH (20:07)
[2019-03-22] MEDS: HYDROcodone/Acetaminophen 5/325 mg Tablet PO PRN ×2 (03:26→14:44)
[2019-03-22] MEDS: Levothyroxine Sodium 50 MCG TAB PO SCH (05:55)
[2019-03-22] MEDS: Alogliptin 25 MG TAB PO SCH (09:13)
[2019-03-22] MEDS: buPROPion 75 MG TAB PO SCH (09:14)
[2019-03-22] MEDS: Furosemide 20 MG TAB PO SCH (09:14)
[2019-03-22] MEDS: Potassium Chloride 20 MEQ TAB PO SCH (09:14)
[2019-03-22] MEDS: clonazePAM 1 MG TAB PO SCH ×2 (09:14→20:56)
[2019-03-22] MEDS: Escitalopram Oxalate 10 mg Tablet PO SCH (09:15)
[2019-03-22] MEDS: Enoxaparin Sodium 40 MG/0.4 ML SYRINGE SC SCH (09:15)
[2019-03-22] MEDS: Sodium Chloride 0.9% 1,000 ML IV SCH ×2 (09:19→21:20)
[2019-03-22] MEDS: Amlodipine 5 MG TAB PO SCH (09:19)
[2019-03-22] MEDS: Lisinopril 5 MG TAB PO SCH (09:19)
--- NOTE | 2019-03-22 09:24 | MRI ---
MR the lumbar spine with and without contrast INDICATION: Abdominal myoclonus with difficulty in walking COMPARISON: None. TECHNIQUE: Multiplanar multisequence MR images were obtained of lumbar spine with and without IV cont rast. Contrast: 14 cc of MultiHance. FINDINGS: Bone marrow: There is diffuse heterogeneous marrow signal intensity involving the lower thoracic, lum bar and sacral spine suspicious for changes of red marrow hyperplasia. No acute fracture is demonstrated. Distal spinal cord and conus: Normal. Conus is seen to terminate at the L1 level. Visualized retroperitoneum and paraspinal soft tissues: Normal. No lymphadenopathy demonstrated. Vertebral levels: L5-S1: There is a broad-based disc bulge with moderate facet joint degenerative change inducing mild bilateral neural foraminal narrowing. L4-5: There is severe facet joint degenerative change, ligamentum flavum hypertrophy and a broad-base d disc bulge inducing mild central canal narrowing with mild to moderate bilateral neural foraminal narrowing, left greater than right. L3-4: There is a broad-based disc osteophyte complex with facet hypertrophy inducing moderate central canal narrowing with moderate to severe bilateral neural foraminal narrowing. L2-3: There is a broad-based disc osteophyte complex with facet hypertrophy inducing moderate central canal narrowing with moderate bilateral neural foraminal narrowing. L1-L2: There is a broad-based disc osteophyte complex and facet hypertrophy inducing mild central can al narrowing and mild bilateral neural foraminal narrowing. T12-L1: There is a broad-based disc osteophyte complex with facet hypertrophy inducing mild left neur al foraminal narrowing. Postcontrast series: No abnormal enhancement demonstrated. IMPRESSION: 1. Moderate to severe multilevel spondylosis of the lumbar spine. 2. Moderate central canal narrowing with moderate to severe bilateral neural foraminal narrowing at L 3-4. 3. Mild central canal narrowing with mild to moderate bilateral neural foraminal narrowing at L4-5. 4. Moderate bilateral neural foraminal narrowing and moderate central canal narrowing at L2-3. 5. Mild central canal narrowing and mild bilateral neural foraminal narrowing at L1-L2. 6. Mild left neural foraminal narrowing at T12-L1. 7. Diffuse red marrow hyperplasia. Recommend correlation for any symptoms and signs of chronic anemia .
--- NOTE | 2019-03-22 09:33 | MRI ---
MR OF THE THORACIC SPINE WITH AND WITHOUT CONTRAST INDICATION: Abdominal mild clonus with difficulty in walking TECHNIQUE: Multiplanar multisequence MR images were obtained of the thoracic spine with and without c ontrast. Spine count series was provided. 14 cc of MultiHance was utilized for the examination. COMPARISON: None FINDINGS: Bone marrow signal intensity: There is diffuse areas of red marrow hyperplasia seen involving the tho racic spine. There is a mildly prominent hemangioma within the T1 vertebral body measuring approximately 1.6 cm. Spinal alignment: Normal Spinal cord: Normal signal intensity and contour. Paravertebral soft tissues: Normal Vertebral levels: T1-T2: No appreciable central canal or neural foraminal narrowing is evident. T2-T3: No appreciable central canal or neural foraminal narrowing. T3-T4: No appreciable central canal or neural foraminal narrowing.. T4-T5: No appreciable central canal or neural foraminal narrowing. T5-T6: There is a mild broad-based disc bulge inducing mild central canal narrowing. T6-T7: There is a mild broad-based disc bulge inducing mild central canal narrowing and mild bilatera l neural foraminal narrowing. T7-T8: There is a broad-based disc bulge inducing mild central canal narrowing. T8-T9: There is a broad-based disc bulge inducing mild central canal narrowing without definite cord contact T9-T10: There is a broad-based disc bulge inducing mild central canal narrowing and mild bilateral ne ural foraminal narrowing. T10-T11: There is a broad-based disc bulge with facet hypertrophy inducing mild central canal narrowi ng and moderate to severe right and mild left neural foraminal narrowing. T11-T12: There is a broad-based disc bulge with facet hypertrophy inducing mild central canal narrowi ng mild bilateral neural foraminal narrowing T12-L1: There is a broad-based bulge inducing mild central canal narrowing. Additional findings: None. IMPRESSION: 1. Severe multilevel spondylosis of the thoracic spine with multilevel central canal narrowing. There is also multilevel neural foraminal narrowing most pronounced at T10-T11 where there is moderate to severe right and mild left neural foraminal narrowing. 2. No cord compression or cord signal abnormality is demonstrated.
[2019-03-22 10:40] LABS: ALT (SGPT) 8 U/L (8-55); AST (SGOT) 16 U/L (5-34); Albumin 3.3 g/dL (3.4-4.8); Alkaline Phosphatase 76 U/L (40-110); Anion Gap 12 mmol/L (10-20); BUN (Urea Nitrogen) 8 mg/dL (9.8-20.1); Bilirubin, Total 0.3 mg/dL (0.2-1.2); Calc. Creatinine Clearance 44 mL/min (70-130); Calcium 8.5 mg/dL (7.8-10.44); Carbon Dioxide 22 mmol/L (23-31); Chloride 112 mmol/L (98-107); Estimated GFR-MDRD 56; Globulin 3.3 g/dL (2.4-3.5); Glucose 100 mg/dL (83-110); Lipase 546 U/L (8-78); Protein, Total 6.6 g/dL (6.0-8.3); Sodium 142 mmol/L (136-145)
[2019-03-22] MEDS: Baclofen 10 MG TAB PO PRN (12:39)
[2019-03-22] MEDS ORDERED: Baclofen 10 MG TAB PO PRN (16:12)
--- NOTE | 2019-03-22 16:14 | PDOC.HOSPP ---
- Subjective Encounter Date: 03/22/19 Encounter Time: 16:13 Subjective: Ms. Owen was seen today in follow-up of abdominal pain, and involuntary jerking. She is having more of these episodes today, almost continuous. She denies any ansuea or vomiting. - Objective Vital Signs & Weight: Vital Signs (12 hours) Temp Pulse Resp BP BP BP Pulse Ox 03/22/19 11:00 97.9 F 71 18 140/83 97 03/22/19 09:19 56 L 136/76 03/22/19 08:00 98 F 56 L 18 136/76 98 Weight Admit Weight 164 lb 9 oz Weight 164 lb 9 oz Result Diagrams: 03/21/19 11:18 03/22/19 10:10 Additional Labs: Accuchecks 03/22/19 03/22/19 03/21/19 11:33 04:45 19:23 POC Glucose 105 80 89 Hospitalist ROS - Medication Medications: Active Medications Generic Name Dose Route Start Last Admin Trade Name Freq PRN Reason Stop Dose Admin Acetaminophen 650 mg 03/21/19 14:56 03/22/19 12:39 Tylenol PO 650 mg Q4H PRN Administration Headache/Fever or Pain Hydrocodone Bitart/Acetaminophen 1 tab 03/20/19 20:41 03/22/19 14:44 [place] 5/325 PO 1 tab Q4H PRN Administration Moderate Pain (4-6) Alogliptin Benzoate 12.5 mg 03/21/19 09:00 03/22/19 09:13 Alogliptin PO 12.5 mg DAILY ABBE Administration Amlodipine Besylate 5 mg 03/21/19 09:00 03/22/19 09:19 Norvasc PO 5 mg DAILY ABBE Administration Baclofen 5 mg 03/21/19 16:29 03/22/19 12:39 [place] PO 5 mg BID PRN Administration Muscle Spasm Bupropion HCl 150 mg 03/21/19 09:00 03/22/19 09:14 Wellbutrin PO 150 mg QAM ABBE Administration Clonazepam 1 mg 03/20/19 21:00 03/22/19 09:14 Klonopin PO 1 mg BID ABBE Administration Enoxaparin Sodium 40 mg 03/21/19 09:00 03/22/19 09:15 Lovenox SC 40 mg 0900 ABBE Administration Escitalopram Oxalate 5 mg 03/21/19 09:00 03/22/19 09:15 Lexapro PO 5 mg QAM ABBE Administration Furosemide 20 mg 03/21/19 09:00 03/22/19 09:14 Lasix PO 20 mg QAM ABBE Administration Sodium Chloride 1,000 mls @ 100 mls/hr 03/20/19 15:18 03/22/19 09:19 Normal Saline 0.9% IV 1,000 mls .Q10H ABBE Administration Levothyroxine Sodium 50 mcg 03/21/19 06:00 03/22/19 05:55 Synthroid PO 50 mcg 0600 ABBE Administration Lisinopril 5 mg 03/21/19 09:00 03/22/19 09:19 Zestril PO 5 mg DAILY ABBE Administration Potassium Chloride 20 meq 03/21/19 09:00 03/22/19 09:14 K-Dur PO 20 meq QAM ABBE Administration Prazosin HCl 2 mg 03/20/19 21:00 03/21/19 20:04 Minipress PO 2 mg HS ABBE Administration Quetiapine Fumarate 25 mg 03/20/19 21:00 03/21/19 20:07 Seroquel PO 25 mg HS ABBE Administration Rosuvastatin Calcium 10 mg 03/20/19 21:00 03/21/19 20:07 Crestor PO 10 mg HS ABBE Administration Valacyclovir HCl 1,000 mg 03/20/19 21:00 03/21/19 20:07 Valtrex PO 1,000 mg QPM ABBE Administration - Exam Heart: RRR, no murmur, no gallops, no rubs, normal peripheral pulses Respiratory: CTAB, no wheezes, no rales, no ronchi, normal chest expansion, no tachypnea, normal percussion Gastrointestinal: soft, normal bowel sounds, no palpable masses, no hepatomegaly Hosp A/P (1) Myoclonus Code(s): G25.3 - MYOCLONUS Status: Acute (2) DM type 2 (diabetes mellitus, type 2) Status: Chronic (3) Hypertension Code(s): I10 - ESSENTIAL (PRIMARY) HYPERTENSION Status: Chronic Qualifiers: Hypertension type: essential hypertension Qualified Code(s): I10 - Essential (primary) hypertension (4) Hypothyroidism Code(s): E03.9 - HYPOTHYROIDISM, UNSPECIFIED Status: Chronic - Plan * Abdominal wall Myoclonus-Unlear etiology- [place] was recommended by Neurology * I am not sure if the elevated lipase is of clinical significance- will consult GI to aid in the evaluation * MRI of the thoracic and lumbar spine results were noted- she has relatively severe Multi-level spinal stenosis * HTN- blood pressure is stable * DM- blood glucose is stable
[2019-03-22] MEDS: Prazosin HCl 1 MG CAP PO SCH (20:53)
[2019-03-22] MEDS: Rosuvastatin 10 MG TAB PO SCH (20:56)
[2019-03-22] MEDS: valACYclovir 500 MG TAB PO SCH (21:05)
--- NOTE | 2019-03-23 00:33 | CON ---
DATE OF CONSULTATION: 03/22/2019 REASON FOR CONSULT: "Jumpy stomach, questionable abdominal myoclonus." CONSULTING PHYSICIAN: Dr. Dao Mathews. HISTORY OF PRESENT ILLNESS: Ms. Owen is an 83-year-old female who came to the emergency room on 03/20 with complaints that her stomach was jumping. She states this has been going on for about 4-6 months. It was last night and worse in the morning. This has been on and off for some time; it is not really a pain, but more of a "jumping." The nurses note she seems to have it more when she is nervous or anxious. The patient denies any nausea, vomiting, or diarrhea. She denies any change in appetite, melena, hematochezia, hematemesis, weight loss, fever, chills, jaundice, rashes, myalgias, or arthralgias. She notes no twitching in other muscles. PAST MEDICAL HISTORY: Type 2 diabetes, hyperlipidemia, hypertension, anxiety. PAST SURGICAL HISTORY: Hysterectomy. SOCIAL HISTORY: The patient denies alcohol use or drug use. She used to smoke. She lives at home with family. FAMILY HISTORY: No family history of colorectal cancer or liver disease. REVIEW OF SYSTEMS: The patient denies having previous colonoscopies. Denies history of GI illnesses. MEDICATIONS: At home; 1. Seroquel. 2. Potassium chloride. 3. Norvasc. 4. Valacyclovir. 5. Klonopin. 6. Rosuvastatin. 7. Prazosin. 8. Escitalopram. 9. Januvia. 10. Zestril. 11. Levothyroxine. 12. Furosemide. 13. Bupropion. Present medications here; 1. Tylenol. 2. Alogliptin. 3. Norvasc. 4. Baclofen. 5. Wellbutrin. 6. Klonopin. 7. Lovenox. 8. Lexapro. 9. Furosemide. 10. Hydrocodone. 11. Levetiracetam. 12. Synthroid. 13. Seroquel. 14. Valtrex. 15. Zofran. PHYSICAL EXAMINATION: VITAL SIGNS: Blood pressure is 140/83, temperature is 98. HEENT: Oropharynx without lesions. NECK: Supple without adenopathy. LUNGS: Clear. HEART: Regular rate and rhythm without clicks or murmurs. ABDOMEN: Soft and nontender. There is no rebound. There is no guarding. There is no hernias, umbilical or inguinal. Bowel sounds are positive. There are no bruits. There is no palpable hepatosplenomegaly. EXTREMITIES: No clubbing, cyanosis, or edema. RADIOLOGIC STUDIES: Patient had a CAT scan of the abdomen and pelvis on 03/20/2019 that was normal except for degenerative changes in the spine. LABORATORY STUDIES: CBC normal. CMP normal. Lipase on 03/22 was 546; on admission, it was 203. ASSESSMENT: 1. Twitching abdomen, etiology of this is unclear. This is not pancreatitis. I think it is probably related to her psychiatric illness. Her psychiatric history is not complete. She is on Seroquel in the outpatient setting, which would indicate probably of more serious psychiatric disorder than anxiety. 2. Mildly elevated lipase on admission, it has been higher here. This could be related to her alogliptin. I would stop it and put her on sliding scale insulin for now. Before admission, she was on Januvia, which can also be a risk factor for causing pancreatitis. I would get an ultrasound of her gallbladder and make sure she has no gallstones. It would have been reasonable to get a UDS on admission, although this was not done, it is probably too late to do that now. Job ID: [id number]
[2019-03-23] MEDS: Levothyroxine Sodium 50 MCG TAB PO SCH (06:35)
[2019-03-23] MEDS: Sodium Chloride 0.9% 1,000 ML IV SCH ×2 (06:40→10:30)
[2019-03-23] MEDS: HYDROcodone/Acetaminophen 5/325 mg Tablet PO PRN (06:41)
--- NOTE | 2019-03-23 07:45 | ULT ---
Right upper quadrant ultrasound: 03/23/2019 COMPARISON: None HISTORY: Elevated lipase TECHNIQUE: Multiplanar grayscale sonographic imaging of the right upper quadrant obtained FINDINGS: Imaged pancreas grossly unremarkable. Minimal prominence of pancreatic duct. The distal gracia creatic body and tail are obscured by bowel gas. No focal liver lesion or intrahepatic biliary dilatation. Right kidney measures 11 cm craniocaudal dimension and demonstrates no stone, hydronephrosis, or mass . No gallbladder wall thickening or pericholecystic fluid. No gallstones are noted. The wire spiral binder rep orts a negative Womack's sign. Common bile duct measures 5 mm, within normal limits. IMPRESSION: No evidence for cholelithiasis or cholecystitis. No biliary dilatation.
[2019-03-23 08:45] VITALS: BP 126/77; TEMP 97.5
[2019-03-23] MEDS: Enoxaparin Sodium 40 MG/0.4 ML SYRINGE SC SCH (08:48)
[2019-03-23] MEDS: Furosemide 20 MG TAB PO SCH (08:49)
[2019-03-23] MEDS: Alogliptin 25 MG TAB PO SCH (08:49)
[2019-03-23] MEDS: buPROPion 75 MG TAB PO SCH (08:49)
[2019-03-23] MEDS: Amlodipine 5 MG TAB PO SCH (08:49)
[2019-03-23] MEDS: Potassium Chloride 20 MEQ TAB PO SCH (08:49)
[2019-03-23] MEDS: Escitalopram Oxalate 10 mg Tablet PO SCH (08:49)
[2019-03-23] MEDS: clonazePAM 1 MG TAB PO SCH (08:50)
[2019-03-23] MEDS: Lisinopril 5 MG TAB PO SCH (08:50)
--- NOTE | 2019-03-23 15:01 | PDOC.HOSPP ---
- Subjective Encounter Date: 03/23/19 Encounter Time: 14:59 Subjective: Ms. Owen was seen today in follow-up of abdominal myoclonus. She does not have any additional complaints. Abdominal pain is better. - Objective Vital Signs & Weight: Vital Signs (12 hours) Temp Pulse Resp BP Pulse Ox 03/23/19 08:45 97.5 F L 55 L 16 126/77 99 Weight Admit Weight 164 lb 9 oz Weight 164 lb 9 oz Result Diagrams: 03/21/19 11:18 03/22/19 10:10 Additional Labs: Accuchecks 03/23/19 03/23/19 03/22/19 12:06 06:02 21:27 POC Glucose 124 H 72 86 03/22/19 16:39 POC Glucose 82 Hospitalist ROS - Medication Medications: Active Medications Generic Name Dose Route Start Last Admin Trade Name Freq PRN Reason Stop Dose Admin Acetaminophen 650 mg 03/21/19 14:56 03/22/19 12:39 Tylenol PO 650 mg Q4H PRN Administration Headache/Fever or Pain Hydrocodone Bitart/Acetaminophen 1 tab 03/20/19 20:41 03/23/19 06:41 [place] 5/325 PO 1 tab Q4H PRN Administration Moderate Pain (4-6) Hydrocodone Bitart/Acetaminophen 2 tab 03/20/19 20:41 03/22/19 20:53 [place] 5/325 PO 2 tab Q4H PRN Administration Severe Pain (7-10) Alogliptin Benzoate 12.5 mg 03/21/19 09:00 03/23/19 08:49 Alogliptin PO 12.5 mg DAILY ABBE Administration Amlodipine Besylate 5 mg 03/21/19 09:00 03/23/19 08:49 Norvasc PO 5 mg DAILY ABBE Administration Bupropion HCl 150 mg 03/21/19 09:00 03/23/19 08:49 Wellbutrin PO 150 mg QAM ABBE Administration Clonazepam 1 mg 03/20/19 21:00 03/23/19 08:50 Klonopin PO 1 mg BID ABBE Administration Enoxaparin Sodium 40 mg 03/21/19 09:00 03/23/19 08:48 Lovenox SC 40 mg 0900 ABBE Administration Escitalopram Oxalate 5 mg 03/21/19 09:00 03/23/19 08:49 Lexapro PO 5 mg QAM ABBE Administration Furosemide 20 mg 03/21/19 09:00 03/23/19 08:49 Lasix PO 20 mg QAM ABBE Administration Sodium Chloride 1,000 mls @ 100 mls/hr 03/20/19 15:18 03/23/19 10:30 Normal Saline 0.9% IV 1,000 mls .Q10H ABBE Administration Levetiracetam 500 mg/ Device 100 mls @ 200 mls/hr 03/22/19 21:00 03/23/19 08: 48 IVPB 100 mls BID ABBE Administration Levothyroxine Sodium 50 mcg 03/21/19 06:00 03/23/19 06:35 Synthroid PO 50 mcg 0600 ABBE Administration Lisinopril 5 mg 03/21/19 09:00 03/23/19 08:50 Zestril PO 5 mg DAILY ABBE Administration Potassium Chloride 20 meq 03/21/19 09:00 03/23/19 08:49 K-Dur PO 20 meq QAM ABBE Administration Prazosin HCl 2 mg 03/20/19 21:00 03/22/19 20:53 Minipress PO 2 mg HS ABBE Administration Quetiapine Fumarate 25 mg 03/20/19 21:00 03/22/19 20:56 Seroquel PO 25 mg HS ABBE Administration Rosuvastatin Calcium 10 mg 03/20/19 21:00 03/22/19 20:56 Crestor PO 10 mg HS ABBE Administration Valacyclovir HCl 1,000 mg 03/20/19 21:00 03/22/19 21:05 Valtrex PO 1,000 mg QPM ABBE Administration - Exam Eye: PERRL Heart: RRR, no murmur, no gallops, no rubs, normal peripheral pulses Respiratory: CTAB, no wheezes, no rales, no ronchi, normal chest expansion Gastrointestinal: soft, non-tender, non-distended, normal bowel sounds Extremities: no edema (+ no joint effusion in either knee, + crepitus, much more on the right than left, no warmth or erythema) Hosp A/P (1) Myoclonus Code(s): G25.3 - MYOCLONUS Status: Acute (2) DM type 2 (diabetes mellitus, type 2) Status: Chronic (3) Hypertension Code(s): I10 - ESSENTIAL (PRIMARY) HYPERTENSION Status: Chronic Qualifiers: Hypertension type: essential hypertension Qualified Code(s): I10 - Essential (primary) hypertension (4) Hypothyroidism Code(s): E03.9 - HYPOTHYROIDISM, UNSPECIFIED Status: Chronic - Plan * Abdominal wall Myoclonus- Continue Keppra * GI evaluation noted * Rigth knee pain- likely due to Osteoarthritis- will place in Neoprine brace, and she can have outpatient workup * Stable for discharge home
--- NOTE | 2019-03-23 18:02 | DIS ---
DATE OF ADMISSION: 03/20/2019 DATE OF DISCHARGE: 03/23/2019 PRIMARY CARE PHYSICIAN: Robert Stiles MD. DISCHARGE DISPOSITION: Home. DISCHARGE DISPOSITION: Home. PRIMARY DISCHARGE DIAGNOSES: 1. Abdominal myoclonus. 2. Diabetes mellitus type 2. 3. Hyperlipidemia. 4. Hypertension. 5. Anxiety and depression. 6. Dementia. 7. Hypothyroidism. 8. Psychiatric disorder, nonspecified. DISCHARGE MEDICATIONS: 1. Please note that the patient was taken off Januvia and placed on metformin 500 mg twice daily. Januvia was discontinued due to concerns for elevated lipase. 2. Keppra 500 mg twice daily was added. 3. She is to continue Norvasc 5 mg daily. 4. Valacyclovir 1000 mg daily. 5. Crestor 10 mg daily. 6. Seroquel 25 mg at bedtime. 7. Prazosin 1 mg at bedtime. 8. Potassium chloride 20 mEq extended release daily. 9. Lisinopril 5 mg p.o. daily. 10. Levothyroxine 50 mcg p.o. daily. 11. Furosemide 20 mg p.o. daily. 12. Escitalopram 5 mg p.o. daily. 13. Klonopin 1 mg p.o. twice a day. 14. Bupropion XL 150 mg extended release daily. IMAGING STUDIES: During the hospital stay, the patient had a CT scan of the abdomen and pelvis, showing there was no free air or fluid. There was moderate distention of the urinary bladder. There was no evidence of any inflammatory bowel change or obstruction. The appendix appeared unremarkable. CODE STATUS: Full code. ALLERGIES: NO KNOWN DRUG ALLERGIES. HOSPITAL COURSE: Ms. Owen is a pleasant 83-year-old female, who presented to the emergency room with abdominal pain and involuntary jerking. She stating that this was causing significant pain. She was admitted and seen by Neurology. The neurologist ordered a MRI of her thoracic and lumbar spine. It did show severe degenerative changes in the spine, but this could be explained by her advanced age. She was started on Keppra empirically for the myoclonus. It was also noted that her lipase was elevated. The etiology of which was unclear. For this reason, GI was consulted and it was felt that this could be a side effect of her diabetes medication, the Januvia. This was discontinued and metformin is being replaced. Her symptoms do not appear to be attributable to pancreatitis as she was eating without difficulty and this did not exacerbate her pain. Her son came to the hospital on the following day and explained to me that her symptoms have actually been going on for over a year. He told me that she has had a full GI workup in the past, which was negative and it is suspected that this could be psychiatric in origin. At the time of discharge, she was clinically stable. The jerking had discontinued and she is being discharged home to have close followup with Dr. Stiles. Job ID: [id number]
== END 2019-03-23 17:04 | disposition home or self-care (01) ==
LOC: ERS 09:59 → INTOOBSV 14:56 → T4-B 14:56
PROVIDERS: ADMIT Internal Medicine; ATTEND Internal Medicine
DX: G25.3 Myoclonus (principal); E11.9 Type 2 diabetes mellitus without complications; E78.5 Hyperlipidemia, unspecified; I10 Essential (primary) hypertension; F41.9 Anxiety disorder, unspecified; F32.9 Major depressive disorder, single episode, unspecified; F03.90 Unspecified dementia, unspecified severity, without behavioral disturbance, psychotic disturbance, mood disturbance, and anxiety; E03.9 Hypothyroidism, unspecified; F99 Mental disorder, not otherwise specified; K58.9 Irritable bowel syndrome, unspecified; K57.30 Diverticulosis of large intestine without perforation or abscess without bleeding; I70.0 Atherosclerosis of aorta; M47.816 Spondylosis without myelopathy or radiculopathy, lumbar region; M48.061 Spinal stenosis, lumbar region without neurogenic claudication; M47.814 Spondylosis without myelopathy or radiculopathy, thoracic region; M48.04 Spinal stenosis, thoracic region; Z87.891 Personal history of nicotine dependence; Z79.84 Long term (current) use of oral hypoglycemic drugs; Z79.899 Other long term (current) drug therapy; Z98.890 Other specified postprocedural states
CPT/HCPCS: 72157; 72158; 74177; 76705; 80053 ×3; 80061; 82962 ×4; 83690 ×3; 83735; 85025 ×2; 96361 ×4; 96365; 96372 ×4; 96375 ×2; 96376 ×2; 97139 ×2; 99285; G0378 ×4; 36415; 36416; 81003; 81015; 96374; J0500; J1650; J1953; J2270; J2405; J3475; Q9967

== ENCOUNTER 2019-03-28 15:35 | Emergency (ER) | payer MEDICARE ==
[2019-03-28 17:05] LABS: Bilirubin Negative (Negative); Blood, Urine Negative (Negative); Clarity Clear (Clear); Glucose, Urine (Dipstick) Normal (Negative); Leukocyte Negative Leu/uL (Negative); Nitrite Negative (Negative); Protein, Urine (Dipstick) Negative (Neg-Trace); Urobilinogen Normal mg/dL (Less than 2)
[2019-03-28 17:06] LABS: #Eosinphils 0.3 thou/uL (0.0-0.7); #Lymphocytes 1.5 thou/uL (1.20-3.40); #Monocytes 0.4 thou/uL (0.11-0.59); #Neutrophils 4.1 thou/uL (1.40-6.50); %Basophils 0.6 % (0.0-1.0); %Eosinophils 4.1 % (0.0-10.0); %Lymphocytes 24.1 % (21.0-51.0); %Monocytes 6.6 % (0.0-10.0); %Neutrophils 64.6 % (42.0-75.0); Hemoglobin 11.4 g/dL (12.0-16.0); Mean Corpuscular HGB CONC 33.2 g/dL (32.0-36.0); Mean Corpuscular Hemoglobin 31.3 pg (27.0-31.0); Mean Corpuscular Volume 94.3 fL (78.0-98.0); Mean Platelet Volume 9.6 fL (7.4-10.4); Platelet Count 160 thou/uL (130-400); RBC Distribution Width 14.6 % (11.5-14.5); Red Blood Cell (RBC) Count 3.63 mill/uL (4.20-5.40); White Blood Cell (WBC) Count 6.3 thou/uL (4.8-10.8)
[2019-03-28 17:27] LABS: ALT (SGPT) 17 U/L (8-55); AST (SGOT) 21 U/L (5-34); Albumin 3.7 g/dL (3.4-4.8); Alkaline Phosphatase 83 U/L (40-110); Anion Gap 14 mmol/L (10-20); BUN (Urea Nitrogen) 14 mg/dL (9.8-20.1); Bilirubin, Total 0.4 mg/dL (0.2-1.2); Calc. Creatinine Clearance 0 mL/min (70-130); Calcium 9.2 mg/dL (7.8-10.44); Carbon Dioxide 26 mmol/L (23-31); Chloride 106 mmol/L (98-107); Estimated GFR-MDRD 45; Globulin 2.9 g/dL (2.4-3.5); Glucose 80 mg/dL (83-110); Lipase 113 U/L (8-78); Potassium 3.9 mmol/L (3.5-5.1); Protein, Total 6.6 g/dL (6.0-8.3); Sodium 142 mmol/L (136-145)
--- NOTE | 2019-03-30 15:39 | EKG ---
Test Reason : Blood Pressure : / mmHG Vent. Rate : 065 BPM Atrial Rate : 065 BPM P-R Int : 224 ms QRS Dur : 098 ms QT Int : 422 ms P-R-T Axes : 028 -50 028 degrees QTc Int : 438 ms Sinus rhythm with 1st degree A-V block Left axis deviation Low voltage QRS Possible Anterolateral infarct , age undetermined No change from 01/12/2019 Confirmed by FAUSTINO JARA DO ([id number]), international editorial producer SHRAVAN GREGG ([id number]) on 03/30/2019 3:39:30 PM Referred By: Confirmed By:FAUSTINO JARA DO
== END 2019-03-28 22:35 | disposition home or self-care (01) ==
LOC: ERS 15:35
DX: M62.838 Other muscle spasm (principal); E78.00 Pure hypercholesterolemia, unspecified; E11.9 Type 2 diabetes mellitus without complications; I10 Essential (primary) hypertension; F41.9 Anxiety disorder, unspecified; Z87.891 Personal history of nicotine dependence; Z79.899 Other long term (current) drug therapy
CPT/HCPCS: 36415; 51701; 80053; 81003; 83605; 83690; 84484; 85025; 87086; 93005; 96360; 96361; 96372; A4353; J0500

== ENCOUNTER 2019-03-30 18:12 | Emergency (ER) | payer MEDICARE ==
[2019-03-30] MEDS ORDERED: Dicyclomine 20 MG TAB ONE (18:36)
== END 2019-03-30 19:19 | disposition home or self-care (01) ==
LOC: ERS 18:12
DX: M62.838 Other muscle spasm (principal); E11.9 Type 2 diabetes mellitus without complications; E78.00 Pure hypercholesterolemia, unspecified; I10 Essential (primary) hypertension; F41.9 Anxiety disorder, unspecified; Z87.891 Personal history of nicotine dependence; Z79.899 Other long term (current) drug therapy; Z79.84 Long term (current) use of oral hypoglycemic drugs
CPT/HCPCS: 96372; 99283; J0500

== ENCOUNTER 2019-04-06 11:18 | Emergency (ER) | payer MEDICARE ==
[2019-04-06] MEDS ORDERED: clonazePAM 0.5 MG TAB ONE (14:54)
== END 2019-04-06 15:55 | disposition home or self-care (01) ==
LOC: ERS 11:18
DX: G25.3 Myoclonus (principal); E11.9 Type 2 diabetes mellitus without complications; I10 Essential (primary) hypertension; E78.00 Pure hypercholesterolemia, unspecified; F41.9 Anxiety disorder, unspecified; Z87.891 Personal history of nicotine dependence; Z79.899 Other long term (current) drug therapy
CPT/HCPCS: 99283

== ENCOUNTER 2019-04-08 15:34 | Emergency (ER) | payer MEDICARE ==
[2019-04-08] MEDS ORDERED: Diazepam 5 MG TAB ONE (16:10)
== END 2019-04-08 16:43 | disposition home or self-care (01) ==
LOC: ERS 15:34
DX: R10.9 Unspecified abdominal pain (principal); E11.9 Type 2 diabetes mellitus without complications; E78.00 Pure hypercholesterolemia, unspecified; I10 Essential (primary) hypertension; F41.9 Anxiety disorder, unspecified; Z87.891 Personal history of nicotine dependence; Z79.899 Other long term (current) drug therapy; Z79.84 Long term (current) use of oral hypoglycemic drugs
CPT/HCPCS: 99284

== ENCOUNTER 2019-04-10 16:05 | Emergency (ER) | payer MEDICARE ==
[2019-04-10] MEDS ORDERED: Lidocaine Viscous Sol 2% 15 ml UD Cup ONE (16:34)
[2019-04-10] MEDS ORDERED: Mag-Al 1200 mg/1200 mg/30 ML UDCUP ONE (16:34)
[2019-04-10 16:39] LABS: #Basophils 0.1 thou/uL (0.0-0.2); #Eosinphils 0.4 thou/uL (0.0-0.7); #Lymphocytes 1.8 thou/uL (1.20-3.40); #Monocytes 0.4 thou/uL (0.11-0.59); #Neutrophils 3.9 thou/uL (1.40-6.50); %Basophils 1.3 % (0.0-1.0); %Eosinophils 6.2 % (0.0-10.0); %Lymphocytes 27.1 % (21.0-51.0); %Monocytes 6.5 % (0.0-10.0); Mean Corpuscular HGB CONC 32.7 g/dL (32.0-36.0); Mean Corpuscular Volume 94.7 fL (78.0-98.0); Mean Platelet Volume 9.5 fL (7.4-10.4); Platelet Count 190 thou/uL (130-400); RBC Distribution Width 14.5 % (11.5-14.5); Red Blood Cell (RBC) Count 3.87 mill/uL (4.20-5.40); White Blood Cell (WBC) Count 6.5 thou/uL (4.8-10.8)
[2019-04-10 17:00] LABS: ALT (SGPT) 16 U/L (8-55); AST (SGOT) 21 U/L (5-34); Alkaline Phosphatase 90 U/L (40-110); Anion Gap 13 mmol/L (10-20); BUN (Urea Nitrogen) 14 mg/dL (9.8-20.1); Bilirubin, Total 0.5 mg/dL (0.2-1.2); Calc. Creatinine Clearance 0 mL/min (70-130); Calcium 9.5 mg/dL (7.8-10.44); Carbon Dioxide 25 mmol/L (23-31); Chloride 106 mmol/L (98-107); Estimated GFR-MDRD 47; Globulin 3.5 g/dL (2.4-3.5); Glucose 74 mg/dL (83-110); Lipase 89 U/L (8-78); Potassium 4.1 mmol/L (3.5-5.1); Protein, Total 7.5 g/dL (6.0-8.3); Sodium 140 mmol/L (136-145)
--- NOTE | 2019-04-10 17:04 | RAD ---
KUB AND UPRIGHT: 04/10/19 HISTORY: Abdominal pain for several months. Bowel gas pattern shows air within both small and large bowel without signs of obstruction. There is generalized gaseous distention to the abdomen. Some borderline dilatation to some of the small bowel loops. No free air is demonstrated. Overall appearance is fairly similar to what was seen on the CT e xamination in 03/20/19. No renal calculi seen. There are arthritic changes of the spine. IMPRESSION: Mild gaseous distention to the abdomen. No free air. POS: OFF
== END 2019-04-10 17:23 | disposition home or self-care (01) ==
LOC: ERS 16:05
DX: M62.838 Other muscle spasm (principal); R10.9 Unspecified abdominal pain; G89.29 Other chronic pain; E11.9 Type 2 diabetes mellitus without complications; I10 Essential (primary) hypertension; E78.00 Pure hypercholesterolemia, unspecified; F41.9 Anxiety disorder, unspecified; Z87.891 Personal history of nicotine dependence; Z79.84 Long term (current) use of oral hypoglycemic drugs; Z79.899 Other long term (current) drug therapy
CPT/HCPCS: 36415; 74019; 80053; 83690; 85025; 96372; J0500

== ENCOUNTER 2019-04-16 20:55 | Emergency (ER) | payer MEDICARE | END 2019-04-17 00:12 | disposition home or self-care (01) | LOC: ERS 20:55 | DX: M62.838 Other muscle spasm (principal); I10 Essential (primary) hypertension; E78.00 Pure hypercholesterolemia, unspecified; E11.9 Type 2 diabetes mellitus without complications; F41.9 Anxiety disorder, unspecified; Z76.0 Encounter for issue of repeat prescription; Z87.891 Personal history of nicotine dependence; Z79.84 Long term (current) use of oral hypoglycemic drugs | CPT/HCPCS: 99283 ==

== ENCOUNTER 2019-04-19 09:08 | Emergency (ER) | payer MEDICARE ==
[2019-04-19] MEDS ORDERED: Diazepam 5 MG TAB ONE (09:22)
--- NOTE | 2019-04-24 14:20 | EKG ---
Test Reason : Blood Pressure : / mmHG Vent. Rate : 070 BPM Atrial Rate : 070 BPM P-R Int : 182 ms QRS Dur : 076 ms QT Int : 396 ms P-R-T Axes : 042 -49 -09 degrees QTc Int : 427 ms Normal sinus rhythm Left axis deviation Inferior infarct , age undetermined Anterolateral infarct , age undetermined Abnormal ECG Confirmed by MIRANDA PAREDES DO ([id number]), rewrite editor SHRAVAN GREGG ([id number]) on 04/24/2019 2:20:22 PM Referred By: Confirmed By:MIRANDA PAREDES DO
== END 2019-04-19 09:29 | disposition home or self-care (01) ==
LOC: ERS 09:08
DX: R10.9 Unspecified abdominal pain (principal); E11.9 Type 2 diabetes mellitus without complications; E78.00 Pure hypercholesterolemia, unspecified; I10 Essential (primary) hypertension; F41.9 Anxiety disorder, unspecified; Z87.891 Personal history of nicotine dependence; Z79.899 Other long term (current) drug therapy; Z79.84 Long term (current) use of oral hypoglycemic drugs
CPT/HCPCS: 93005

== ENCOUNTER 2019-04-21 12:57 | Emergency (ER) | payer MEDICARE ==
[2019-04-21] MEDS ORDERED: Diazepam 5 MG TAB ONE (15:38)
== END 2019-04-21 15:45 | disposition home or self-care (01) ==
LOC: ERS 12:57
DX: G25.3 Myoclonus (principal); M62.838 Other muscle spasm; F41.9 Anxiety disorder, unspecified; E11.9 Type 2 diabetes mellitus without complications; I10 Essential (primary) hypertension; E78.00 Pure hypercholesterolemia, unspecified; F03.90 Unspecified dementia, unspecified severity, without behavioral disturbance, psychotic disturbance, mood disturbance, and anxiety; Z87.891 Personal history of nicotine dependence; Z79.84 Long term (current) use of oral hypoglycemic drugs; Z79.899 Other long term (current) drug therapy
CPT/HCPCS: 99283

== ENCOUNTER 2019-04-23 16:59 | Emergency (ER) | payer MEDICARE ==
[2019-04-23] MEDS ORDERED: Diazepam 5 MG TAB ONE (19:08)
== END 2019-04-23 20:07 | disposition home or self-care (01) ==
LOC: ERS 16:59
DX: R10.9 Unspecified abdominal pain (principal); E11.9 Type 2 diabetes mellitus without complications; I10 Essential (primary) hypertension; E78.00 Pure hypercholesterolemia, unspecified; F41.9 Anxiety disorder, unspecified; F32.9 Major depressive disorder, single episode, unspecified; Z87.891 Personal history of nicotine dependence; Z79.899 Other long term (current) drug therapy; Z79.84 Long term (current) use of oral hypoglycemic drugs
CPT/HCPCS: 99283

== ENCOUNTER 2019-04-27 12:50 | Emergency (ER) | payer MEDICAID, MEDICARE ==
[2019-04-27 14:54] LABS: #Basophils 0.1 thou/uL (0.0-0.2); #Eosinphils 0.2 thou/uL (0.0-0.7); #Lymphocytes 1.9 thou/uL (1.20-3.40); #Monocytes 0.4 thou/uL (0.11-0.59); #Neutrophils 4.4 thou/uL (1.40-6.50); %Basophils 1.1 % (0.0-1.0); %Eosinophils 2.9 % (0.0-10.0); %Lymphocytes 27.4 % (21.0-51.0); %Monocytes 5.6 % (0.0-10.0); Hemoglobin 11.8 g/dL (12.0-16.0); Mean Corpuscular HGB CONC 31.7 g/dL (32.0-36.0); Mean Corpuscular Hemoglobin 30.8 pg (27.0-31.0); Mean Corpuscular Volume 97.2 fL (78.0-98.0); Mean Platelet Volume 9.4 fL (7.4-10.4); Platelet Count 173 thou/uL (130-400); RBC Distribution Width 14.4 % (11.5-14.5); Red Blood Cell (RBC) Count 3.84 mill/uL (4.20-5.40)
[2019-04-27 15:18] LABS: ALT (SGPT) 14 U/L (8-55); AST (SGOT) 19 U/L (5-34); Albumin 3.9 g/dL (3.4-4.8); Alkaline Phosphatase 98 U/L (40-110); Anion Gap 9 mmol/L (10-20); BUN (Urea Nitrogen) 20 mg/dL (9.8-20.1); Bilirubin, Total 0.4 mg/dL (0.2-1.2); Calc. Creatinine Clearance 0 mL/min (70-130); Calcium 9.4 mg/dL (7.8-10.44); Carbon Dioxide 30 mmol/L (23-31); Chloride 108 mmol/L (98-107); Estimated GFR-MDRD 46; Globulin 3.6 g/dL (2.4-3.5); Glucose 78 mg/dL (83-110); Lipase 87 U/L (8-78); Potassium 4.3 mmol/L (3.5-5.1); Protein, Total 7.5 g/dL (6.0-8.3); Sodium 143 mmol/L (136-145)
== END 2019-04-27 16:23 | disposition home or self-care (01) ==
LOC: ERS 12:50
DX: M62.838 Other muscle spasm (principal); E11.9 Type 2 diabetes mellitus without complications; I10 Essential (primary) hypertension; E78.00 Pure hypercholesterolemia, unspecified; F41.9 Anxiety disorder, unspecified; F32.9 Major depressive disorder, single episode, unspecified; Z87.891 Personal history of nicotine dependence; Z79.899 Other long term (current) drug therapy; Z79.84 Long term (current) use of oral hypoglycemic drugs
CPT/HCPCS: 36415; 80053; 83690; 85025; 99284

== ENCOUNTER 2019-05-16 15:54 | Emergency (ER) | payer MEDICARE ==
[2019-05-16] MEDS ORDERED: Acetaminophen 325 MG TAB ONE (17:50)
== END 2019-05-16 17:59 | disposition home or self-care (01) ==
LOC: ERS 15:54
DX: M62.838 Other muscle spasm (principal); E11.9 Type 2 diabetes mellitus without complications; E78.00 Pure hypercholesterolemia, unspecified; I10 Essential (primary) hypertension; F41.9 Anxiety disorder, unspecified; F32.9 Major depressive disorder, single episode, unspecified; Z87.891 Personal history of nicotine dependence
CPT/HCPCS: 99283

== ENCOUNTER 2019-05-18 17:53 | Emergency (ER) | payer MEDICARE ==
[2019-05-18 18:29] LABS: Bilirubin Negative (Negative); Blood, Urine Negative (Negative); Clarity Clear (Clear); Glucose, Urine (Dipstick) Normal (Negative); Leukocyte Negative Leu/uL (Negative); Nitrite Negative (Negative); Protein, Urine (Dipstick) Negative (Neg-Trace); Urobilinogen Normal mg/dL (Less than 2)
[2019-05-18 18:50] LABS: #Basophils 0.1 thou/uL (0.0-0.2); #Eosinphils 0.2 thou/uL (0.0-0.7); #Lymphocytes 1.5 thou/uL (1.20-3.40); #Monocytes 0.4 thou/uL (0.11-0.59); #Neutrophils 4.2 thou/uL (1.40-6.50); %Basophils 1.8 % (0.0-1.0); %Eosinophils 3.5 % (0.0-10.0); %Lymphocytes 22.9 % (21.0-51.0); %Monocytes 6.7 % (0.0-10.0); %Neutrophils 65.1 % (42.0-75.0); Hemoglobin 11.9 g/dL (12.0-16.0); Mean Corpuscular HGB CONC 32.2 g/dL (32.0-36.0); Mean Corpuscular Hemoglobin 31.4 pg (27.0-31.0); Mean Corpuscular Volume 97.4 fL (78.0-98.0); Mean Platelet Volume 9.3 fL (7.4-10.4); Platelet Count 179 thou/uL (130-400); RBC Distribution Width 13.9 % (11.5-14.5); Red Blood Cell (RBC) Count 3.78 mill/uL (4.20-5.40); White Blood Cell (WBC) Count 6.5 thou/uL (4.8-10.8)
[2019-05-18 19:13] LABS: ALT (SGPT) 12 U/L (8-55); AST (SGOT) 18 U/L (5-34); Albumin 3.8 g/dL (3.4-4.8); Alkaline Phosphatase 104 U/L (40-110); Anion Gap 12 mmol/L (10-20); BUN (Urea Nitrogen) 19 mg/dL (9.8-20.1); Bilirubin, Total 0.3 mg/dL (0.2-1.2); Calc. Creatinine Clearance 0 mL/min (70-130); Calcium 9.2 mg/dL (7.8-10.44); Carbon Dioxide 21 mmol/L (23-31); Chloride 111 mmol/L (98-107); Estimated GFR-MDRD 48; Globulin 3.6 g/dL (2.4-3.5); Glucose 75 mg/dL (83-110); Lipase 92 U/L (8-78); Potassium 3.8 mmol/L (3.5-5.1); Protein, Total 7.4 g/dL (6.0-8.3); Sodium 140 mmol/L (136-145)
--- NOTE | 2019-05-18 19:26 | RAD ---
TWO VIEWS OF THE ABDOMEN: 05/18/19 HISTORY: Possible foreign body. Patient states she swallowed a quarter last week. COMPARISON: 04/10/19. FINDINGS: Calcified granuloma overlies the right lung base with linear densities at the right lung base. This m ay be related to mild scarring. Lung bases are otherwise clear. Bowel gas pattern is nonspecific with gaseous distention of the large and small loops of bowel. No dilated loops of small bowel are apprec iated. No radiopaque or metallic foreign body is seen on views of the abdomen. Renal shadows are most ly obscured, but no definite suspicious calcifications are seen. Phleboliths overlie the left hemipel vis. There is mild bilateral hip osteoarthritis. Degenerative changes are noted in the spine. IMPRESSION: No radiopaque or metallic foreign body seen on views of the abdomen. If there is clinical concern for foreign body, chest x-ray to include neck soft tissues would be helpful for further evaluation. POS: GABRIEL
== END 2019-05-18 20:15 | disposition home or self-care (01) ==
LOC: ERS 17:53
DX: R10.32 Left lower quadrant pain (principal); E11.9 Type 2 diabetes mellitus without complications; E78.00 Pure hypercholesterolemia, unspecified; I10 Essential (primary) hypertension; F41.9 Anxiety disorder, unspecified; F32.9 Major depressive disorder, single episode, unspecified; Z87.891 Personal history of nicotine dependence
CPT/HCPCS: 36415; 74019; 80053; 81003; 83036; 83690; 85025; 99214; A4353; G0463

== ENCOUNTER 2019-05-20 12:52 | Emergency (ER) | payer MEDICARE ==
[2019-05-20 13:16] LABS: #Basophils 0.1 thou/uL (0.0-0.2); #Eosinphils 0.3 thou/uL (0.0-0.7); #Lymphocytes 1.8 thou/uL (1.20-3.40); #Monocytes 0.4 thou/uL (0.11-0.59); #Neutrophils 3.1 thou/uL (1.40-6.50); %Basophils 1.1 % (0.0-1.0); %Eosinophils 5.3 % (0.0-10.0); %Lymphocytes 31.9 % (21.0-51.0); %Neutrophils 54.8 % (42.0-75.0); Hemoglobin 11.9 g/dL (12.0-16.0); Mean Corpuscular HGB CONC 31.9 g/dL (32.0-36.0); Mean Corpuscular Hemoglobin 31.3 pg (27.0-31.0); Mean Platelet Volume 9.6 fL (7.4-10.4); Platelet Count 171 thou/uL (130-400); Red Blood Cell (RBC) Count 3.82 mill/uL (4.20-5.40); White Blood Cell (WBC) Count 5.6 thou/uL (4.8-10.8)
[2019-05-20 13:38] LABS: ALT (SGPT) 13 U/L (8-55); AST (SGOT) 19 U/L (5-34); Albumin 3.8 g/dL (3.4-4.8); Alkaline Phosphatase 97 U/L (40-110); Anion Gap 15 mmol/L (10-20); BUN (Urea Nitrogen) 18 mg/dL (9.8-20.1); Bilirubin, Total 0.3 mg/dL (0.2-1.2); Calc. Creatinine Clearance 0 mL/min (70-130); Calcium 9.1 mg/dL (7.8-10.44); Carbon Dioxide 19 mmol/L (23-31); Chloride 110 mmol/L (98-107); Estimated GFR-MDRD 44; Globulin 3.6 g/dL (2.4-3.5); Glucose 70 mg/dL (83-110); Lipase 88 U/L (8-78); Potassium 3.9 mmol/L (3.5-5.1); Protein, Total 7.4 g/dL (6.0-8.3); Sodium 140 mmol/L (136-145)
[2019-05-20 16:40] LABS: Lactic Acid 3.4 mmol/L (0.5-2.2)
[2019-05-20 16:47] LABS: Anion Gap 15 mmol/L (10-20); BUN (Urea Nitrogen) 16 mg/dL (9.8-20.1); Calc. Creatinine Clearance 0 mL/min (70-130); Calcium 9.2 mg/dL (7.8-10.44); Carbon Dioxide 17 mmol/L (23-31); Chloride 112 mmol/L (98-107); Estimated GFR-MDRD 46; Glucose 119 mg/dL (83-110); Potassium 3.8 mmol/L (3.5-5.1); Sodium 140 mmol/L (136-145)
== END 2019-05-20 17:53 | disposition home or self-care (01) ==
LOC: ERS 12:52
DX: G89.29 Other chronic pain (principal); R10.84 Generalized abdominal pain; E86.0 Dehydration; E11.9 Type 2 diabetes mellitus without complications; I10 Essential (primary) hypertension; E78.00 Pure hypercholesterolemia, unspecified; F41.9 Anxiety disorder, unspecified; F32.9 Major depressive disorder, single episode, unspecified; Z87.891 Personal history of nicotine dependence; Z79.899 Other long term (current) drug therapy
CPT/HCPCS: 36415; 80053; 83605; 83690; 85025; 96360; 96361

== ENCOUNTER 2019-05-22 10:55 | Emergency (ER) | payer MEDICARE ==
[2019-05-22] MEDS ORDERED: Haloperidol Lactate 5 MG/ML VIAL ONE (11:32)
[2019-05-22 12:52] LABS: #Eosinphils 0.2 thou/uL (0.0-0.7); #Lymphocytes 1.8 thou/uL (1.20-3.40); #Monocytes 0.5 thou/uL (0.11-0.59); #Neutrophils 3.9 thou/uL (1.40-6.50); %Basophils 0.4 % (0.0-1.0); %Eosinophils 3.5 % (0.0-10.0); %Lymphocytes 27.7 % (21.0-51.0); %Monocytes 7.5 % (0.0-10.0); Hemoglobin 12.4 g/dL (12.0-16.0); Mean Corpuscular HGB CONC 32.1 g/dL (32.0-36.0); Mean Corpuscular Hemoglobin 30.8 pg (27.0-31.0); Mean Platelet Volume 10.5 fL (7.4-10.4); Platelet Count 120 thou/uL (130-400); RBC Distribution Width 14.2 % (11.5-14.5); Red Blood Cell (RBC) Count 4.03 mill/uL (4.20-5.40); White Blood Cell (WBC) Count 6.4 thou/uL (4.8-10.8)
[2019-05-22 13:07] LABS: ALT (SGPT) 12 U/L (8-55); AST (SGOT) 17 U/L (5-34); Albumin 3.7 g/dL (3.4-4.8); Alkaline Phosphatase 93 U/L (40-110); Anion Gap 17 mmol/L (10-20); BUN (Urea Nitrogen) 13 mg/dL (9.8-20.1); Bilirubin, Total 0.4 mg/dL (0.2-1.2); Calc. Creatinine Clearance 0 mL/min (70-130); Carbon Dioxide 17 mmol/L (23-31); Chloride 111 mmol/L (98-107); Estimated GFR-MDRD 55; Globulin 3.5 g/dL (2.4-3.5); Glucose 74 mg/dL (83-110); Lipase 86 U/L (8-78); Potassium 3.9 mmol/L (3.5-5.1); Protein, Total 7.2 g/dL (6.0-8.3); Sodium 141 mmol/L (136-145)
== END 2019-05-22 13:49 | disposition home or self-care (01) ==
LOC: ERS 10:55
DX: M62.838 Other muscle spasm (principal); E11.9 Type 2 diabetes mellitus without complications; E78.00 Pure hypercholesterolemia, unspecified; I10 Essential (primary) hypertension; F41.9 Anxiety disorder, unspecified; F32.9 Major depressive disorder, single episode, unspecified; Z87.891 Personal history of nicotine dependence; Z79.899 Other long term (current) drug therapy
CPT/HCPCS: 36415; 80053; 83690; 85025; 96372; 99284; J1630

== ENCOUNTER 2019-05-24 18:02 | Observation (INO) | payer MEDICARE ==
[~2019-05-24 18:02] MED LIST changes: -ISOVUE-370 76%-LOCM 1 ML ONE; +Iopamidol-370 76% 500 ML 1 ML ONE
[2019-05-24] MEDS ORDERED: Ondansetron PF 4 MG/2 ML Vial ONE (18:34)
[2019-05-24] MEDS ORDERED: Morphine 4 MG/ML VIAL ONE (18:34)
[2019-05-24 18:40] LABS: #Basophils 0.1 thou/uL (0.0-0.2); #Lymphocytes 1.6 thou/uL (1.20-3.40); #Monocytes 0.5 thou/uL (0.11-0.59); #Neutrophils 5.9 thou/uL (1.40-6.50); %Eosinophils 0.4 % (0.0-10.0); %Lymphocytes 20.2 % (21.0-51.0); %Monocytes 5.5 % (0.0-10.0); %Neutrophils 72.9 % (42.0-75.0); Mean Corpuscular HGB CONC 33.3 g/dL (32.0-36.0); Mean Corpuscular Hemoglobin 32.2 pg (27.0-31.0); Mean Corpuscular Volume 96.6 fL (78.0-98.0); Mean Platelet Volume 10.1 fL (7.4-10.4); Platelet Count 164 thou/uL (130-400); RBC Distribution Width 14.1 % (11.5-14.5); Red Blood Cell (RBC) Count 3.74 mill/uL (4.20-5.40); White Blood Cell (WBC) Count 8.1 thou/uL (4.8-10.8)
[2019-05-24 19:04] LABS: ALT (SGPT) 14 U/L (8-55); AST (SGOT) 26 U/L (5-34); Alkaline Phosphatase 101 U/L (40-110); Anion Gap 16 mmol/L (10-20); BUN (Urea Nitrogen) 13 mg/dL (9.8-20.1); Bilirubin, Total 0.3 mg/dL (0.2-1.2); Calc. Creatinine Clearance 0 mL/min (70-130); Calcium 9.3 mg/dL (7.8-10.44); Carbon Dioxide 19 mmol/L (23-31); Chloride 111 mmol/L (98-107); Estimated GFR-MDRD 50; Globulin 4.1 g/dL (2.4-3.5); Glucose 74 mg/dL (83-110); Lipase 141 U/L (8-78); Potassium 5.3 mmol/L (3.5-5.1); Protein, Total 8.1 g/dL (6.0-8.3); Sodium 141 mmol/L (136-145)
[2019-05-24 19:15] LABS: Bilirubin Negative (Negative); Blood, Urine Negative (Negative); Clarity Clear (Clear); Glucose, Urine (Dipstick) Normal (Negative); Leukocyte Negative Leu/uL (Negative); Nitrite Negative (Negative); Protein, Urine (Dipstick) Negative (Neg-Trace); Urobilinogen Normal mg/dL (Less than 2)
[2019-05-24] MEDS ORDERED: HYDROmorphone 0.5 MG/0.5 ML SYRINGE ONE (20:54)
--- NOTE | 2019-05-24 22:26 | CT ---
CT ABDOMEN AND PELVIS WITH IV CONTRAST: History: Abdominal pain, elevated lipase Comparison: 03-20-19 FINDINGS: There is a calcified granuloma at the right lung base. The liver, spleen, pancreas, adrenal glands, a nd kidneys are unremarkable. No calcified gallstones are seen. No pancreatic inflammatory changes or fluid collections are seen. No free air, free fluid, or lymphadenopathy is seen in the abdomen or pelvis. The small bowel loops a re not abnormally dilated. A normal appearing appendix is apparent. There are vascular calcifications without evidence of aneurysmal dilatation of the abdominal aorta. T here are degenerative changes of the spine. IMPRESSION: No acute process. POS: OFF
[2019-05-25 02:35] VITALS: BMI 27.3
[2019-05-25] MEDS ORDERED: Ondansetron ODT 4 MG TAB PO PRN (04:27)
[2019-05-25] MEDS ORDERED: HumaLOG 300 UNITS/3 ML VIAL SC PRN ×2 (04:27)
[2019-05-25] MEDS ORDERED: Dextrose 5% in Water 1,000 ML IV PRN (04:27)
[2019-05-25] MEDS ORDERED: Ondansetron PF 4 MG/2 ML Vial IVP PRN (04:27)
[2019-05-25] MEDS ORDERED: Dextrose 50% Abboject 50 ML SYRINGE SLOW IVP PRN (04:27)
--- NOTE | 2019-05-25 04:58 | HP ---
PRIMARY CARE PHYSICIAN: Robert Stiles MD CHIEF COMPLAINT: "My stomach is cramping and gives me a lot of problems." HISTORY OF PRESENT ILLNESS: Ms. Owen is a pleasant 83-year-old female, who has a history of chronic abdominal pain, the etiology of which is unknown. She also has history of diabetes mellitus and hypertension as well as mild dementia. She was actually just recently admitted to our facility about 2 months ago. At that time, she had been treated for what was considered an abdominal wall myoclonus. She was started on Keppra with fairly good results and was discharged home. The patient now comes in saying that she has been having stomach cramping and her stomach just jumps. She admits that this problem has been going on for "years." I remember speaking with her son and he verifies that she has had this problem for a long time several years and that she has had an extensive GI evaluation outside of this hospital and the findings of which were negative. The patient says currently she does not have any abdominal pain at all, but when it does happen, it just feels "so bad" and it feels like cramping and jumping. There is no nausea, vomiting, or diarrhea associated with it. No fevers, no chills. No change in bowels and she has not had any weight loss. The patient was evaluated in the ER. CT scan of the abdomen was essentially negative. Her lab work also was significant only for a slightly elevated potassium and her lipase was slightly elevated, which is chronic and she was placed in observation for evaluation. REVIEW OF SYSTEMS: All systems were reviewed and are negative except for that mentioned in the history of present illness. PAST MEDICAL HISTORY: Significant for abdominal myoclonus, diabetes mellitus type 2, hyperlipidemia, hypertension, dementia, anxiety and depression, hypothyroidism, psychiatric disorder nonspecified, chronic kidney disease, stage 2. PAST SURGICAL HISTORY: She has had a hysterectomy and bilateral salpingo-oophorectomy. FAMILY HISTORY: Significant for heart disease, diabetes, and stroke. SOCIAL HISTORY: She is , has 5 children. She is a nonsmoker and nondrinker. ALLERGIES: NO KNOWN DRUG ALLERGIES. CURRENT MEDICATIONS: Unknown. PHYSICAL EXAMINATION: GENERAL: She is oriented to person and place, but not to time. She could not give me the year. She kept saying 50s and the month, she was not able to do this, she says it "comes and goes." She is well developed and well nourished. VITAL SIGNS: Blood pressure was 154/76, heart rate ranges from the mid 40s to the mid 60s, temperature is 98.5, respiratory rate of 18. HEENT: Pupils are equal, round, and reactive. Extraocular muscles are intact. Her sclerae anicteric. Throat, no erythema, no exudates. NECK: No adenopathy. No bruits. LUNGS: Clear. No wheezing. No rales. No rhonchi. CARDIOVASCULAR: She has a normal S1, S2. There is no S3 or S4. No murmurs, clicks, or rubs. ABDOMEN: Obese, soft, nontender, and nondistended. Positive for bowel sounds. No rebound. No guarding. No organomegaly. EXTREMITIES: There is no clubbing or cyanosis. No edema. No calf tenderness. No joint effusions. NEUROLOGIC: Grossly nonfocal. SKIN AND INTEGUMENT: No skin changes. No rash. LABORATORY DATA: Sodium 141, potassium 5.3, chloride is 101, CO2 is 19, BUN of 13, creatinine 1.24, glucose is 74. White blood cell count 8.1, hemoglobin 12, hematocrit is 36.1, and platelet count is 166. Urinalysis is negative. CT scan of the abdomen is negative. ASSESSMENT: 1. This is a pleasant 83-year-old female, who presents to the emergency room with recurrent abdominal pain. CT scan was negative. Her lab works are essentially the same as it has been before. Her abdominal exam is benign. The etiology of this abdominal pain is unclear. It appears to wax and wane and currently, she is completely asymptomatic. More than likely, she does not require any additional workup. We will try to reconcile and restart her home medications, maybe watch her for a few more hours to another overnight stay, and then hopefully home. She likely needs a psychiatric evaluation as there may be no physiological reason for the abdominal pain. It is noted her lipase is slightly elevated, but this has been a chronic occurrence. Hopefully, she made the medication change recommended on her last admission, which was to discontinue the Januvia and restart the metformin. This will need to be verified. 2. Abdominal myoclonus. Continue her Keppra. 3. Hypertension. We will need to reconcile and restart her antihypertensives. 4. Diabetes mellitus. Once again, reconcile and restart her diabetes medicine as well as a sliding scale. Job ID: [id number]
[2019-05-25] MEDS: Famotidine 20 MG TAB PO SCH ×2 (08:31→20:19)
[2019-05-25] MEDS: Enoxaparin Sodium 30 MG/0.3 ML SYRINGE SC SCH (08:32)
[2019-05-25] MEDS ORDERED: Prevnar 13-Val Conj/PF 0.5 ML SYRINGE IM ONE (09:00)
[2019-05-25] MEDS ORDERED: FLU VACC TS2019-20(65YR UP)/PF 180 MCG/0.5 ML SYRINGE IM ONE (09:00)
[2019-05-25] MEDS: Acetaminophen 325 MG TAB PO PRN ×2 (17:05→23:51)
[2019-05-26 06:44] LABS: Anion Gap 11 mmol/L (10-20); BUN (Urea Nitrogen) 10 mg/dL (9.8-20.1); Calc. Creatinine Clearance 49 mL/min (70-130); Calcium 9.3 mg/dL (7.8-10.44); Carbon Dioxide 27 mmol/L (23-31); Chloride 109 mmol/L (98-107); Estimated GFR-MDRD 58; Glucose 95 mg/dL (83-110); Lipase 96 U/L (8-78); Potassium 3.8 mmol/L (3.5-5.1); Sodium 143 mmol/L (136-145)
[2019-05-26 07:05] LABS: #Basophils 0.1 thou/uL (0.0-0.2); #Eosinphils 0.4 thou/uL (0.0-0.7); #Monocytes 0.6 thou/uL (0.11-0.59); #Neutrophils 3.5 thou/uL (1.40-6.50); %Basophils 1.3 % (0.0-1.0); %Eosinophils 5.6 % (0.0-10.0); %Lymphocytes 30.4 % (21.0-51.0); %Monocytes 8.6 % (0.0-10.0); %Neutrophils 54.1 % (42.0-75.0); Mean Corpuscular HGB CONC 32.8 g/dL (32.0-36.0); Mean Corpuscular Hemoglobin 31.9 pg (27.0-31.0); Mean Corpuscular Volume 97.5 fL (78.0-98.0); Mean Platelet Volume 10.3 fL (7.4-10.4); Platelet Count 163 thou/uL (130-400); RBC Distribution Width 14.1 % (11.5-14.5); Red Blood Cell (RBC) Count 3.75 mill/uL (4.20-5.40); White Blood Cell (WBC) Count 6.4 thou/uL (4.8-10.8)
[2019-05-26] MEDS: Enoxaparin Sodium 30 MG/0.3 ML SYRINGE SC SCH (09:30)
[2019-05-26] MEDS: Famotidine 20 MG TAB PO SCH (09:30)
[2019-05-26 11:01] VITALS: BP 177/97; TEMP 98.6
[2019-05-26] MEDS ORDERED: levETIRAcetam 500 MG TAB PO SCH (12:00)
--- NOTE | 2019-05-26 12:41 | DIS ---
DATE OF ADMISSION: 05/25/2019 DATE OF DISCHARGE: 05/26/2019 DISCHARGE DIAGNOSES: 1. Abdominal wall myoclonus. 2. Question of mild pancreatitis, chronic. 3. Anxiety/depression. 4. Hypothyroidism. 5. Diabetes mellitus, type 2. CONSULTATIONS: None. PERTINENT LABORATORY AND X-RAY FINDINGS: Lipase ranged between 96 to 141. Creatinine ranged between 1.09 to 1.24. Estimated GFR ranged between 50 to 58. CBC within normal limits. CT of the abdomen and pelvis dated 05/24/2019, showed no acute process. HOSPITAL COURSE: The patient was observed on the medical floor after initially presenting with abdominal cramping in the context of previous diagnosis of abdominal wall myoclonus, treated with Keppra. The patient underwent CT imaging of the abdomen and pelvis showing no acute intraabdominal process. Screening metabolic survey was essentially unremarkable except for mild lipase elevation. The patient with chronic elevated lipase after review of the electronic medical record, however, no specific pathology identified on CT of the abdomen. The patient was given general supportive management including IV fluids and clear liquids. The patient overall remained clinically stable under observation with recommendations to continue Keppra on a long-term basis and follow up with Neurology Service on an outpatient basis. I have examined the patient and discussed followup instructions with the patient. The patient ready for discharge on 05/26/2019. DISCHARGE MEDICATIONS: 1. Xanax 0.25 mg p.o. b.i.d. 2. Norvasc 5 mg p.o. at bedtime. 3. Atenolol 50 mg p.o. daily. 4. Baclofen 10 mg p.o. b.i.d. p.r.n. 5. Catapres 0.1 mg p.o. at bedtime. 6. Lexapro 5 mg p.o. daily. 7. Lasix 20 mg p.o. daily. 8. Keppra 500 mg p.o. b.i.d. 9. Lisinopril 5 mg p.o. daily. 10. Potassium chloride 20 mEq p.o. daily. 11. Prazosin 2 mg p.o. at bedtime. 12. Seroquel 25 mg p.o. at bedtime. 13. Crestor 10 mg p.o. at bedtime. 14. Januvia 50 mg p.o. daily. 15. Valacyclovir 500 mg p.o. at bedtime. FOLLOWUP: The patient may follow up with her primary care provider of choice with a list of [facility] providers given at the time of discharge. The patient may follow up with Dr. Jaguar Boyd and to call his office for appointment, time, and date. CONDITION ON DISCHARGE: Stable. ACTIVITY: Ad-maria esther. DIET: ADA. CODE STATUS: Full. DISPOSITION: Home on 05/26/2019. Job ID: [id number]
== END 2019-05-26 12:41 | disposition home or self-care (01) ==
LOC: ERS 18:02 → T4-A 05-25 01:27
PROVIDERS: ADMIT Internal Medicine; ATTEND Internal Medicine
DX: G25.3 Myoclonus (principal); F41.9 Anxiety disorder, unspecified; F32.9 Major depressive disorder, single episode, unspecified; E03.9 Hypothyroidism, unspecified; F03.90 Unspecified dementia, unspecified severity, without behavioral disturbance, psychotic disturbance, mood disturbance, and anxiety; I12.9 Hypertensive chronic kidney disease with stage 1 through stage 4 chronic kidney disease, or unspecified chronic kidney disease; E11.22 Type 2 diabetes mellitus with diabetic chronic kidney disease; N18.2 Chronic kidney disease, stage 2 (mild); E78.5 Hyperlipidemia, unspecified; Z87.891 Personal history of nicotine dependence; Z79.899 Other long term (current) drug therapy; Z79.84 Long term (current) use of oral hypoglycemic drugs
CPT/HCPCS: 51701; 74177; 80048; 80053; 81003; 82962 ×2; 83690 ×2; 85025 ×2; 93005; 96372 ×2; 96374; 96375; 99285; G0378 ×4; 36415; 36416; A4353; J1170; J1650; J2270; J2405; Q9967

== ENCOUNTER 2019-05-26 13:54 | Emergency (ER) | payer MEDICARE ==
[2019-05-26] MEDS ORDERED: Diazepam 5 MG TAB ONE (15:32)
== END 2019-05-26 15:52 | disposition home or self-care (01) ==
LOC: ERS 13:54
DX: R10.9 Unspecified abdominal pain (principal); E11.9 Type 2 diabetes mellitus without complications; I10 Essential (primary) hypertension; E78.00 Pure hypercholesterolemia, unspecified; Z87.891 Personal history of nicotine dependence
CPT/HCPCS: 99283

== ENCOUNTER 2019-05-28 15:46 | Emergency (ER) | payer MEDICARE | END 2019-05-28 16:38 | disposition home or self-care (01) | LOC: ERS 15:46 | DX: Z00.00 Encounter for general adult medical examination without abnormal findings (principal); E11.9 Type 2 diabetes mellitus without complications; I10 Essential (primary) hypertension; E78.00 Pure hypercholesterolemia, unspecified; Z87.891 Personal history of nicotine dependence | CPT/HCPCS: 99281 ==

== ENCOUNTER 2019-06-01 13:35 | Emergency (ER) | payer MEDICARE | END 2019-06-01 15:32 | disposition home or self-care (01) | LOC: ERS 13:35 | DX: R10.9 Unspecified abdominal pain (principal); E11.9 Type 2 diabetes mellitus without complications; E78.00 Pure hypercholesterolemia, unspecified; I10 Essential (primary) hypertension; Z87.891 Personal history of nicotine dependence; F32.9 Major depressive disorder, single episode, unspecified | CPT/HCPCS: 99284 ==

== ENCOUNTER 2019-06-03 10:00 | Emergency (ER) | payer MEDICARE | END 2019-06-03 14:30 | disposition home or self-care (01) | LOC: ERS 10:00 | DX: M62.838 Other muscle spasm (principal); I10 Essential (primary) hypertension; E11.9 Type 2 diabetes mellitus without complications; E78.00 Pure hypercholesterolemia, unspecified; F32.9 Major depressive disorder, single episode, unspecified; Z87.891 Personal history of nicotine dependence | CPT/HCPCS: 99284 ==

== ENCOUNTER 2019-06-05 13:27 | Emergency (ER) | payer MEDICARE | END 2019-06-06 00:04 | disposition home or self-care (01) | LOC: ERS 13:27 | DX: R25.2 Cramp and spasm (principal); E11.9 Type 2 diabetes mellitus without complications; E78.00 Pure hypercholesterolemia, unspecified; I10 Essential (primary) hypertension; F32.9 Major depressive disorder, single episode, unspecified; Z87.891 Personal history of nicotine dependence | CPT/HCPCS: 36415; 51701; 70450; 71045; 80053; 80306; 80307; 81003; 81015; 83605; 83690; 83880; 84484; 85025; 85610; 85730; 87040; 87086; 93005; 96360; 99284; A4353 ==

== ENCOUNTER 2019-06-05 21:11 | Emergency (ER) | payer MEDICARE ==
[2019-06-05 21:31] LABS: #Basophils 0.1 thou/uL (0.0-0.2); #Eosinphils 0.1 thou/uL (0.0-0.7); #Lymphocytes 1.6 thou/uL (1.20-3.40); #Monocytes 0.6 thou/uL (0.11-0.59); #Neutrophils 3.6 thou/uL (1.40-6.50); %Basophils 1.4 % (0.0-1.0); %Eosinophils 2.5 % (0.0-10.0); %Lymphocytes 26.3 % (21.0-51.0); %Monocytes 9.4 % (0.0-10.0); %Neutrophils 60.4 % (42.0-75.0); Hemoglobin 9.9 g/dL (12.0-16.0); Mean Corpuscular HGB CONC 33.4 g/dL (32.0-36.0); Mean Corpuscular Hemoglobin 32.2 pg (27.0-31.0); Mean Corpuscular Volume 96.6 fL (78.0-98.0); Platelet Count 151 thou/uL (130-400); RBC Distribution Width 13.8 % (11.5-14.5); Red Blood Cell (RBC) Count 3.08 mill/uL (4.20-5.40); White Blood Cell (WBC) Count 5.9 thou/uL (4.8-10.8)
[2019-06-05 21:44] LABS: ALT (SGPT) 11 U/L (8-55); AST (SGOT) 18 U/L (5-34); Albumin 3.5 g/dL (3.4-4.8); Alkaline Phosphatase 81 U/L (40-110); Anion Gap 11 mmol/L (10-20); BUN (Urea Nitrogen) 19 mg/dL (9.8-20.1); Bilirubin, Total 0.3 mg/dL (0.2-1.2); Calc. Creatinine Clearance 0 mL/min (70-130); Calcium 8.8 mg/dL (7.8-10.44); Carbon Dioxide 23 mmol/L (23-31); Chloride 110 mmol/L (98-107); Estimated GFR-MDRD 35; Globulin 2.9 g/dL (2.4-3.5); Glucose 117 mg/dL (83-110); Potassium 3.2 mmol/L (3.5-5.1); Protein, Total 6.4 g/dL (6.0-8.3); Sodium 141 mmol/L (136-145)
[2019-06-05 22:05] LABS: PTT 29.9 SEC (22.9-36.1); Prothrombin Time 13.4 SEC (12.0-14.7)
[2019-06-05 22:16] LABS: Benzodiazepine Screen Detected (NotDetected); Medtox Reader # READER 1
[2019-06-05 22:16] LABS: Bacteria/HPF None Seen HPF (None Seen); Bilirubin Negative (Negative); Blood, Urine Trace (Negative); Clarity Clear (Clear); Glucose, Urine (Dipstick) Normal (Negative); Leukocyte Negative Leu/uL (Negative); Nitrite Negative (Negative); Protein, Urine (Dipstick) Negative (Neg-Trace); RBC/HPF 0-3 HPF (0-3); Squamous Epithelial 0-3 HPF (0-3); Urobilinogen Normal mg/dL (Less than 2); WBC/HPF 0-3 HPF (0-3)
[2019-06-05 22:17] LABS: Amphetamine Not Detected (NotDetected); Barbiturates Screen Not Detected (NotDetected); Cocaine Metabolite Screen Not Detected (NotDetected); Medtox Control Line Valid? VALID (VALID); Methadone Not Detected (NotDetected); Methamphetamine Not Detected (NotDetected); Opiate Screen Not Detected (NotDetected); Oxycodone Screen Not Detected (NotDetected); Phencyclidine (PCP) Not Detected (NotDetected); THC/Cannabinoid Screen Not Detected (NotDetected); Tricyclic Screen Not Detected (NotDetected)
[2019-06-05 22:19] LABS: Acetaminophen Less than 6.0 mcg/mL (10.0-30.0); Alcohol Less than 10 mg/dL (Less than 10); Salicylate Less than 8.0 mg/dL (15.0-30.0)
--- NOTE | 2019-06-05 22:21 | RAD ---
EXAM: Portable chest PROVIDED CLINICAL HISTORY: Cough COMPARISON: 12/15/2018 FINDINGS: Cardiac and mediastinal silhouette is unchanged in appearance. Stable chronic interstitial opacities. No focal consolidation, pleural fluid or pneumothorax evident. IMPRESSION: No evidence for an acute cardiopulmonary process.
--- NOTE | 2019-06-05 22:28 | CT ---
Exam: CT brain PROVIDED CLINICAL HISTORY: Altered mental status COMPARISON: 07/17/2010 FINDINGS: The ventricular system is normal in size and morphology. No evidence for intracranial hemorrhage or mass effect. The extracranial soft tissues and osseous structures demonstrate no evidence for an acute abnormality. Chronic microvascular ischemic changes are seen involving the cerebral white matte r. IMPRESSION: No evidence for intracranial hemorrhage or mass effect.
== END 2019-06-06 00:22 | disposition home or self-care (01) ==
LOC: ERS 21:11
DX: R10.9 Unspecified abdominal pain (principal); G89.29 Other chronic pain; F32.9 Major depressive disorder, single episode, unspecified; R10.817 Generalized abdominal tenderness; E11.9 Type 2 diabetes mellitus without complications; E78.00 Pure hypercholesterolemia, unspecified; I10 Essential (primary) hypertension; Z87.891 Personal history of nicotine dependence
CPT/HCPCS: 36415; 70450; 71045; 80053; 80306; 80307; 81003; 81015; 83605; 83690; 83880; 84484; 85025; 85610; 85730; 87040; 87086; 93005; A4353

== ENCOUNTER 2019-06-07 14:29 | Emergency (ER) | payer MEDICARE ==
[2019-06-07 15:58] LABS: Hemoglobin 11.8 g/dL (12.0-16.0); Mean Corpuscular HGB CONC 32.9 g/dL (32.0-36.0); Mean Corpuscular Hemoglobin 31.7 pg (27.0-31.0); Mean Corpuscular Volume 96.2 fL (78.0-98.0); Mean Platelet Volume 9.6 fL (7.4-10.4); Platelet Count 180 thou/uL (130-400); RBC Distribution Width 13.9 % (11.5-14.5); Red Blood Cell (RBC) Count 3.71 mill/uL (4.20-5.40); White Blood Cell (WBC) Count 6.1 thou/uL (4.8-10.8)
[2019-06-07 16:14] LABS: ALT (SGPT) 15 U/L (8-55); AST (SGOT) 20 U/L (5-34); Albumin 4.1 g/dL (3.4-4.8); Alkaline Phosphatase 92 U/L (40-110); Anion Gap 15 mmol/L (10-20); BUN (Urea Nitrogen) 12 mg/dL (9.8-20.1); Bilirubin, Total 0.4 mg/dL (0.2-1.2); Calc. Creatinine Clearance 0 mL/min (70-130); Calcium 9.4 mg/dL (7.8-10.44); Carbon Dioxide 19 mmol/L (23-31); Chloride 111 mmol/L (98-107); Estimated GFR-MDRD 44; Globulin 3.5 g/dL (2.4-3.5); Glucose 72 mg/dL (83-110); Lipase 81 U/L (8-78); Potassium 3.9 mmol/L (3.5-5.1); Protein, Total 7.6 g/dL (6.0-8.3); Sodium 141 mmol/L (136-145)
[2019-06-07 16:20] LABS: Bilirubin Negative (Negative); Blood, Urine Negative (Negative); Clarity Clear (Clear); Glucose, Urine (Dipstick) Normal (Negative); Leukocyte Negative Leu/uL (Negative); Nitrite Negative (Negative); Protein, Urine (Dipstick) Negative (Neg-Trace); Urobilinogen Normal mg/dL (Less than 2)
[2019-06-07 16:21] LABS: Band 5 % (5-11); Eosinophils 1 % (0-10); Lymphocytes 30 % (21-51); MDiff Complete? YES; Monocytes 5 % (0-10); Neutrophil 42 % (42-75); Ovalocytes SLIGHT = 2-5 cells (100X) (0-1/hpf); Platelet Morphology Comment Appears Adequate; Polychromasia SLIGHT = 2-3 cells (100X) (0-2/hpf); Reactive Lymphocytes 17 % (0-10)
[2019-06-07] MEDS ORDERED: Acetaminophen 500 MG TAB ONE (16:27)
== END 2019-06-07 20:08 | disposition home or self-care (01) ==
LOC: ERS 14:29
DX: M62.838 Other muscle spasm (principal); F03.90 Unspecified dementia, unspecified severity, without behavioral disturbance, psychotic disturbance, mood disturbance, and anxiety; E11.9 Type 2 diabetes mellitus without complications; E78.00 Pure hypercholesterolemia, unspecified; I10 Essential (primary) hypertension; F32.9 Major depressive disorder, single episode, unspecified; Z87.891 Personal history of nicotine dependence
CPT/HCPCS: 36415; 80053; 81003; 83690; 85025; 99284

== ENCOUNTER 2019-06-12 11:24 | Emergency (ER) | payer MEDICARE | END 2019-06-12 13:11 | disposition home or self-care (01) | LOC: ERS 11:24 | DX: M62.838 Other muscle spasm (principal); E11.9 Type 2 diabetes mellitus without complications; E78.00 Pure hypercholesterolemia, unspecified; I10 Essential (primary) hypertension; F32.9 Major depressive disorder, single episode, unspecified; Z87.891 Personal history of nicotine dependence | CPT/HCPCS: 99284 ==

== ENCOUNTER 2019-06-13 10:54 | Emergency (ER) | payer MEDICARE | END 2019-06-13 11:44 | disposition home or self-care (01) | LOC: ERS 10:54 | DX: F41.9 Anxiety disorder, unspecified (principal); M62.838 Other muscle spasm; E11.9 Type 2 diabetes mellitus without complications; E78.00 Pure hypercholesterolemia, unspecified; I10 Essential (primary) hypertension; F32.9 Major depressive disorder, single episode, unspecified; Z87.891 Personal history of nicotine dependence; Z79.899 Other long term (current) drug therapy | CPT/HCPCS: 99281 ==

== ENCOUNTER 2019-06-14 15:21 | Emergency (ER) | payer MEDICARE | END 2019-06-14 21:13 | disposition left against medical advice (07) | LOC: ERS 15:21 | DX: Z53.21 Procedure and treatment not carried out due to patient leaving prior to being seen by health care provider (principal) ==

== ENCOUNTER 2019-06-22 12:23 | Emergency (ER) | payer MEDICARE ==
[2019-06-22] MEDS ORDERED: Haloperidol Lactate 5 MG/ML VIAL ONE (13:45)
[2019-06-22] MEDS ORDERED: Lorazepam 2 MG/ML VIAL ONE (13:45)
== END 2019-06-22 15:36 | disposition home or self-care (01) ==
LOC: ERS 12:23
DX: R10.9 Unspecified abdominal pain (principal); G89.29 Other chronic pain; F03.90 Unspecified dementia, unspecified severity, without behavioral disturbance, psychotic disturbance, mood disturbance, and anxiety; F41.9 Anxiety disorder, unspecified; E11.9 Type 2 diabetes mellitus without complications; E78.5 Hyperlipidemia, unspecified; E78.00 Pure hypercholesterolemia, unspecified; I10 Essential (primary) hypertension; F32.9 Major depressive disorder, single episode, unspecified; Z87.891 Personal history of nicotine dependence
CPT/HCPCS: 96372; 99284; J1630; J2060

== ENCOUNTER 2019-06-24 13:59 | Emergency (ER) | payer MEDICARE | END 2019-06-24 16:37 | disposition home or self-care (01) | LOC: ERS 13:59 | DX: R10.9 Unspecified abdominal pain (principal); E11.9 Type 2 diabetes mellitus without complications; E78.5 Hyperlipidemia, unspecified; E78.00 Pure hypercholesterolemia, unspecified; I10 Essential (primary) hypertension; F32.9 Major depressive disorder, single episode, unspecified; Z87.891 Personal history of nicotine dependence | CPT/HCPCS: 99281 ==

== ENCOUNTER 2019-06-27 03:55 | Emergency (ER) | payer MEDICARE ==
--- NOTE | 2019-06-27 10:16 | RAD ---
KUB AND UPRIGHT PA CHEST: Date: 06/27/2019 HISTORY: Abdominal pain. FINDINGS: The bowel gas pattern is nonobstructed. There is a moderate amount of stool within the colon. No free air demonstrated. No renal calculi. There are arthritic changes of the spine and hips. PA CHEST: Heart size is borderline. There are atherosclerotic changes within aorta. Linear changes in the bases appear to represent scar. IMPRESSION: 1. Borderline heart size. 2. Findings that would suggest constipation. POS: TPC
== END 2019-06-27 05:15 | disposition home or self-care (01) ==
LOC: ERS 03:55
DX: K59.00 Constipation, unspecified (principal); M62.838 Other muscle spasm; E11.9 Type 2 diabetes mellitus without complications; E78.5 Hyperlipidemia, unspecified; I10 Essential (primary) hypertension; F32.9 Major depressive disorder, single episode, unspecified; Z87.891 Personal history of nicotine dependence
CPT/HCPCS: 74022

== ENCOUNTER 2019-07-05 16:42 | Emergency (ER) | payer MEDICARE | END 2019-07-05 16:55 | disposition home or self-care (01) | LOC: ERS 16:42 | DX: R10.9 Unspecified abdominal pain (principal); G89.29 Other chronic pain; F32.9 Major depressive disorder, single episode, unspecified; E78.5 Hyperlipidemia, unspecified; E78.00 Pure hypercholesterolemia, unspecified; E11.9 Type 2 diabetes mellitus without complications; I10 Essential (primary) hypertension; Z87.891 Personal history of nicotine dependence | CPT/HCPCS: 99283 ==

== ENCOUNTER 2019-07-21 14:03 | Emergency (ER) | payer MEDICARE | END 2019-07-21 15:15 | disposition home or self-care (01) | LOC: ERS 14:03 | DX: G25.3 Myoclonus (principal); E11.9 Type 2 diabetes mellitus without complications; E78.5 Hyperlipidemia, unspecified; E78.00 Pure hypercholesterolemia, unspecified; I10 Essential (primary) hypertension; F32.9 Major depressive disorder, single episode, unspecified; Z87.891 Personal history of nicotine dependence; Z79.899 Other long term (current) drug therapy; Z79.84 Long term (current) use of oral hypoglycemic drugs | CPT/HCPCS: 99281 ==

== ENCOUNTER 2020-05-31 08:48 | Outpatient (CLI) | payer MEDICARE ==
--- NOTE | 2020-05-31 10:19 | CT ---
CT of abdomen and pelvis: 05/31/2020 COMPARISON: 05/24/2019 HISTORY: Abdominal pain and weight loss TECHNIQUE: Axial CT imaging at 5 mm intervals from lung bases through pubic symphysis with intravenou s and oral contrast. Coronal and sagittal reformatted imaging obtained. FINDINGS: A small fat-containing Bochdalek hernias present on the left, unchanged. Subtle linear areas of increased density noted in both lung bases, not significantly changed. No free intraperitoneal air or fluid is appreciated. The liver, spleen, pancreas, gallbladder, adrenal glands, and kidneys demonstrate no acute findings. The uterus appears surgically absent. The rectum is expanded and filled with stool. There are a few scattered colonic diverticula involving the descending colon with no evidence for diverticulitis. The appendix appears unremarkable. No bowel inflammatory change or evidence of bowel obstruction. There is scattered atherosclerotic calcification of the infrarenal abdominal aorta and the arterial s tructures of the pelvis. No lymphadenopathy is noted within the retroperitoneum, the mesentery, or the pelvis. There is multilevel lower lumbar spine facet hypertrophy. There is also multilevel disc space narrowi ng, degenerative endplate change, and vacuum disc formation involving the lower thoracic spine and upper lumbar spine. No worrisome lytic or blastic bone lesion. IMPRESSION: Incidental findings as detailed above. No acute findings are seen within the abdomen/pelv is.
[2020-05-31] MEDS ORDERED: Iopamidol-370 76% 500 ML 1 ML ONE (14:18)
== END 2020-05-31 08:49 | disposition home or self-care (01) ==
LOC: BICCT 08:48
PROVIDERS: ATTEND Internal Medicine
DX: R10.9 Unspecified abdominal pain (principal); R93.3 Abnormal findings on diagnostic imaging of other parts of digestive tract; R63.4 Abnormal weight loss; D12.6 Benign neoplasm of colon, unspecified
CPT/HCPCS: 74177; 82565; Q9967